=== PATIENT | male | born 1990 | race Caucasian/White ===

== ENCOUNTER 2017-12-27 15:30 | Emergency (ER) | payer MEDICAID, SELFPAY ==
[2017-12-27 15:31] VITALS: BP 157/94; PULSE 72; RESP 16; TEMP 37.1; O2SAT 96
--- NOTE | 2017-12-27 16:13 | DI.CT_ITS ---
SYMPTOM/DIAGNOSIS: LT EYE PAIN, SWELLING ORBIT CT: CT scan of the orbits was performed following the uneventful administration of intravenous contrast material. No priors for comparison. The orbits and retro- orbital soft tissues are unremarkable. No focal fluid collection is seen to suggest an abscess. The soft tissues are unremarkable. Note is made of a small mucus retention cyst or polyp in the left maxillary sinus. There is mild mucosal thickening seen in the ethmoid air cells and frontal sinuses. No fluid levels are present. The bones are intact and normally mineralized. IMPRESSION: 1. No acute findings related to the orbits. 2. Mild sinus disease.
[2017-12-27] MEDS: Ketorolac 30 MG/ML VIAL IVP (16:55)
[2017-12-27 17:10] LABS: Abs Immature Grans 0.02 k/cumm (0.0-0.09); Absolute Basophil Count 0.03 k/cumm (0.0-0.2); Absolute Eosinophil Count 0.09 k/cumm (0.0-0.7); Absolute Lymphocyte Count 1.42 k/cumm (1.2-3.4); Absolute Monocyte Count 0.64 k/cumm (0.11-0.7); Absolute Neutrophil Count 7.74 k/cumm (1.2-6.7); Basophils % 0.3; Eosinophils % 0.9; HCT 46.3 % (40.0-50.0); HGB 16.3 g/dL (13.5-17.5); Immature Grans % 0.2; Lymphocytes % 14.3; Mean Corp. HGB Concentration 35.2 g/dL (32.0-36.0); Mean Corpuscular Hemoglobin 29.5 pg (27.0-33.0); Mean Corpuscular Volume 83.7 fL (80-95); Mean Platelet Volume 10.8 fL (8.0-11.0); Monocytes % 6.4; Neutrophils % 77.9; Platelet Count 229 x1000/uL (130-400); RBC 5.53 m/cumm (4.50-6.00); RBC Distribution Width 12.5 % (11.8-14.1); White Blood Cell Count 9.94 k/cumm (4.4-10.8)
[2017-12-27 17:24] LABS: ALT 28 U/L (12-78); AST 17 U/L (15-37); Albumin 4.1 g/dL (3.4-5.0); Alkaline Phosphatase 75 U/L (46-116); Anion Gap 12.8 mmol/L (3-11); BUN 6 mg/dL (7-18); Bilirubin, Total 1.2 mg/dL (0.2-1.0); CO2 25.2 mmol/L (21.0-32.0); CREATININE 0.73 mg/dL (0.70-1.30); Calcium 9.5 mg/dL (8.5-10.1); Chloride 101 mmol/L (98-107); Glucose 87 mg/dL (70-100); Potassium 3.7 mmol/L (3.5-5.1); Sodium 139 mmol/L (136-145); Total Protein 8.1 g/dL (6.4-8.2)
[2017-12-27] MEDS: Omnipaque 350 MG/ML 100 ML BTL IJ (17:33)
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
[2017-12-27] MEDS: Clindamycin 150 MG CAP 450 MG PO (18:48)
[2017-12-27] MEDS: Clindamycin 150 MG CAP 900 MG PO (18:49)
[2017-12-27 18:55] VITALS: BP 143/97; PULSE 60; RESP 14; TEMP 37.1; O2SAT 97
== END 2017-12-27 18:55 | disposition home or self-care (01) ==
PROVIDERS: Emergency Provider Nurse Practitioner Family
DX: L03.213 Periorbital cellulitis (principal); R51 Headache
CPT/HCPCS: 36415; 80053; 96374; 99285; 70481; 85025; 99284; J1885; J3490

== ENCOUNTER 2017-12-31 08:34 | Outpatient (RCR) | payer SELFPAY ==
--- NOTE | 2017-12-31 08:34 | COCO.VHC ---
New/Renewal Application Status: New Application Submitted?: Yes Date Submitted:: 12/27/17 SR #:: [id number] [facility] REP Name:: Anai Notes:: application completed and pc to [facility] to expadite due to medical appointments and medication needs.
--- NOTE | 2017-12-31 08:36 | PDOC.VHC_ITS ---
New/Renewal Application Status: New Application Submitted?: Yes Date Submitted:: 12/27/17 SR #:: [id number] [facility] REP Name:: Anai Notes:: application completed and pc to [facility] to expadite due to medical appointments and medication needs.
== END 2018-01-28 23:59 | disposition home or self-care (01) ==
LOC: COCO 08:34

== ENCOUNTER 2018-02-02 06:51 | Emergency (ER) | payer MEDICAID, SELFPAY ==
--- NOTE | 2018-02-02 06:55 | ED.GENADUL_ITS ---
Discharge Plan Disposition Patient Disposition: HOME Condition: Improving Discharge Details Chief Complaint: Abd Prob Clinical Impression: Abdominal pain, Vomiting Primary Care Provider: None,None ED Provider: Esme Aviles Home Meds and New Rx's Prescriptions: Continue ibuprofen [IBU] 600 mg tablet 600 mg PO QID PRN (Reason: pain) Qty: 20 RF: 0 Discharge Instructions Instructions: Acute Nausea and Vomiting (ED), Abdominal Pain (ED) Additional Instructions: Drink plenty of fluids and get plenty of rest. Take the Zofran as needed and record for any further nausea or vomiting. Alternate Tylenol and Motrin as needed and directed for pain. Follow-up with primary care doctor in 1 week for reevaluation and needed. Return to the emergency department with any worsening or new concerning symptoms. Discharge Data Discharge Physician: Esme Aviles Medical Decision Making <Roger Whiting MD - Last Filed: 02/02/18 07:49> Patient presenting with abdominal pain, nausea, vomiting with tenderness in the right lower quadrant on exam. He does not have true guarding or rebound but is quite uncomfortable with palpation. We will make him n.p.o. place IV. Check laboratory studies and get CT scan to rule out appendicitis. Treat with morphine and Zofran. Patient will be turned over to oncoming physician, Dr. Aviles. She will need to follow-up on labs and CT scan. <Esme Aviles DO - Last Filed: 02/02/18 14:41> Please see Dr. Whiting's note for initial presentation, exam and plan. Patient is a 27-year-old male with no past medical or surgical history who presents abdominal pain for the past 2 days. Started in the epigastric region and then migrated to the right lower quadrant. Workup per Dr. Whiting concerning for acute appendicitis. Plan upon endorsement was follow-up on CT imaging results. Labs reviewed and unremarkable. 0845 --CT negative for appendicitis. Notes a possible rectal stricture. Patient denies any rectal pain or bleeding so this is nonspecific. Also notes possible equivocal cystitis. Patient has normal white blood cell count, negative urinalysis and no dysuria, discharge or hematuria so doubt a urinary tract infection at this time. Patient still with some right lower quadrant tenderness, nausea and intermittent epigastric pain with palpation. Normal exam. Will give a GI cocktail, Compazine and Toradol and reassess with p.o. challenge. 0935 --patient feels much better and was able to take p.o. and no further nausea or vomiting. Patient is requesting to go home. Vitals within normal limits. Will send home with 3 tabs of Zofran to take as needed. Patient was also instructed to alternate Tylenol or Motrin. Discussed that if he has an early appendicitis, it may not be seen on CT but as his pain is present for 2 days and he had a normal WBC and temperature, we should expect some abnormalities on workup today. Discussed with patient that if his symptoms persist or worsen, to return immediately to the emergency department for reevaluation. Patient does not have a primary care doctor. Will place patient on care management list to help arrange for follow-up in the next week. Medical Records Medical records reviewed: Yes I reviewed the patient's medical records. Lab Data Lab results reviewed: Yes I reviewed the patient's lab results. Laboratory Tests Range/Units 02/02/18 02/02/18 02/02/18 07:20 07:20 07:50 WBC (4.4-10.8) k/cumm 8.02 RBC (4.50-6.00) m/cumm 4.93 Hgb (13.5-17.5) g/dL 14.7 Hct (40.0-50.0) % 42.8 MCV (80-95) fL 86.8 MCH (27.0-33.0) pg 29.8 MCHC (32.0-36.0) g/dL 34.3 RDW (11.8-14.1) % 12.8 Plt Count (130-400) x1000/uL 205 MPV (8.0-11.0) fL 10.5 Immature Gran % 0.1 Neutrophils % 71.2 Lymphocytes % 15.7 Monocytes % 10.3 Eosinophils % 2.2 Basophils % 0.5 Absolute Neutrophils (1.2-6.7) k/cumm 5.70 Absolute Lymphocytes (1.2-3.4) k/cumm 1.26 Absolute Monocytes (0.11-0.7) k/cumm 0.83 H Absolute Eosinophils (0.0-0.7) k/cumm 0.18 Absolute Basophils (0.0-0.2) k/cumm 0.04 Sodium (136-145) mmol/L 137 Potassium (3.5-5.1) mmol/L 3.8 Chloride (98-107) mmol/L 102 Carbon Dioxide (21.0-32.0) mmol/L 26.4 Anion Gap (3-11) mmol/L 8.6 BUN (7-18) mg/dL 12 Creatinine (0.70-1.30) mg/dL 0.78 Estimated GFR/1.73 m2 (mL/min/1.73m2) >= 60.00 Glucose (70-100) mg/dL 102 H Calcium (8.5-10.1) mg/dL 9.1 Total Bilirubin (0.2-1.0) mg/dL 1.1 H AST (15-37) U/L 15 ALT (12-78) U/L 21 Alkaline Phosphatase (46-116) U/L 64 Total Protein (6.4-8.2) g/dL 7.5 Albumin (3.4-5.0) g/dL 4.0 Lipase (73-393) U/L 118 Urine Color (Yellow) Dark yellow Urine Clarity Sl cloudy Urine pH (5-8) 6.0 Ur Specific Colbert (1.005-1.025) >= 1.030 H Urine Protein (Negative) mg/dL Negative Urine Ketones (Negative) mg/dL Trace H Urine Blood (Negative) Negative Urine Nitrite (Negative) Negative Urine Bilirubin (Negative) Small H Urine Urobilinogen (Up TO 0.2) EU/dL 0.2 Ur Leukocyte Esterase (Negative) Negative Urine Glucose (Negative) mg/dL Negative HPI <Roger Whiting MD - Last Filed: 02/02/18 07:49> General Mode of arrival: ambulatory . Date/Time Provider Initiated Documentation: 02/02/18 06:54 . Limitations to Documentation: no limitations . Information obtained by: patient . HPI Narrative: Patient presents to ED with abdominal pain. Reports pain started 2 days ago and has been getting progressively worse. It is localized to the right lower quadrant. Does not radiate anywhere. He has loss of appetite, nausea, vomiting. He is constipated. He has decreased urine output with dark urine. He has sweats and chills but does not know whether he had a fever or not. Pain this morning is severe so he came in for evaluation. Related Data Home Medications Medication Instructions Recorded Confirmed ibuprofen [IBU] 600 mg PO QID PRN #20 tab 12/27/17 02/02/18 Previous Rx's Medication Instructions Recorded ibuprofen [IBU] 600 mg PO QID PRN #20 tab 12/27/17 Allergies Allergy/AdvReac Type Severity Reaction Status Date / Time levofloxacin [From Levaquin] Allergy Agitation Unverified 02/02/18 07:03 vanilla Allergy Severe Anaphylaxsi Uncoded 02/02/18 07:03 s General ALESSANDRA: 3 Review of Systems <Roger Whiting MD - Last Filed: 02/02/18 07:49> Review of Systems All systems reviewed & are unremarkable except as noted in HPI and below Constitutional Reports chills, Reports excessive sweating, Denies fever(s), Denies headache(s) , Denies malaise, Reports poor appetite and Reports weakness Eyes Denies change in vision, Denies eye discharge, Denies irritation and Denies eye pain ENT Denies headache(s) and Denies neck pain Cardiovascular Denies chest pain, Denies pedal edema, Denies edema, Denies leg edema, Denies lightheadedness, Denies palpitations and Denies dyspnea Respiratory Denies dyspnea Gastrointestinal Reports abdominal pain, Reports constipation, Denies diarrhea, Reports nausea and Reports vomiting Genitourinary Denies hematuria, Denies difficulty urinating, Denies dysuria, Denies urinary frequency and Denies urinary urgency Musculoskeletal Denies back pain, Denies myalgias, Denies arthralgias, Denies joint swelling, Denies neck pain and Denies numbness Integumentary/Breasts Denies erythema and Denies rash Neurologic Denies confusion, Denies headache(s), Denies numbness and Reports weakness Psychiatric Denies confusion Endocrine Reports excessive sweating and Denies palpitations Exam <Roger Whiting MD - Last Filed: 02/02/18 07:49> Const General: cooperative, comfortable and no acute distress Orientation: alert and oriented x3 HENMT Head: normocephalic and atraumatic Mouth: moist mucous membranes Eyes Conjunctivae: conjunctivae normal Pupils: PERRL EOM: EOM intact bilaterally Neck Neck: full ROM, no lymphadenopathy, trachea midline and supple Resp Effort & Inspection: normal respiratory effort Auscultation: clear to auscultation bilaterally Cardio Rate: regular rate Rhythm: regular rhythm Heart Sounds: S1 normal and S2 normal Pulses: normal peripheral pulses GI Inspection: normal to inspection and non-distended Palpation: soft, not firm, no guarding and tender in the RLQ and at McBurney's point Skin General skin exam: no erythema Rashes: no rashes Trauma: no lacerations or abrasions Other: warm and dry Neuro General: alert, oriented x3, no focal motor deficits and CN's II-XI intact bilaterally Cognition: normal cognition Speech: speech normal Sensory Exam: no sensory deficits noted Extrem General: normal to inspection, full ROM and no clubbing, cyanosis or edema Psych Appearance: grossly normal Mental Status: mental status grossly normal Affect: normal affect Attitude: cooperative Sign Out <Roger Whiting MD - Last Filed: 02/02/18 07:49> Sign Out Data: Sign Out Comment: Signed over to Dr. Aviles to follow up on labs and CT scan; re -eval the patient. Last updated by Roger Whiting MD at 02/02/18 07:50
[2018-02-02 06:59] VITALS: BP 142/91; PULSE 81; RESP 16; TEMP 37; O2SAT 97
--- NOTE | 2018-02-02 07:12 | DI.CT_ITS ---
SYMPTOMS/DIAGNOSIS: RIGHT LOWER QUADRANT PAIN/TENDERNESS CT OF THE ABDOMEN AND PELVIS: Comparison is made with noncontrast exam of April,. A focal area of stool is seen in the rectum. This is surrounded by areas of decompression. There is no visible mass or inflammation. Findings likely represent normal contraction. The appendix appears normal. There are a few small lymph nodes in the mesentery, not pathologically enlarged. There is no small bowel dilatation. The heart size is normal. The lung bases are clear. The liver, gallbladder, spleen, pancreas, adrenals and kidneys are unremarkable. The urinary bladder is nearly empty, but unremarkable. IMPRESSION: Mildly increased stool, otherwise negative.
[2018-02-02] MEDS: Lactated Ringers 1,000 ML 200 ML IV (07:25)
[2018-02-02] MEDS: Ondansetron 4 MG/2 ML VIAL IVP (07:25)
[2018-02-02 07:28] LABS: Abs Immature Grans 0.01 k/cumm (0.0-0.09); Absolute Basophil Count 0.04 k/cumm (0.0-0.2); Absolute Eosinophil Count 0.18 k/cumm (0.0-0.7); Absolute Lymphocyte Count 1.26 k/cumm (1.2-3.4); Absolute Monocyte Count 0.83 k/cumm (0.11-0.7); Basophils % 0.5; Eosinophils % 2.2; HCT 42.8 % (40.0-50.0); HGB 14.7 g/dL (13.5-17.5); Immature Grans % 0.1; Lymphocytes % 15.7; Mean Corp. HGB Concentration 34.3 g/dL (32.0-36.0); Mean Corpuscular Hemoglobin 29.8 pg (27.0-33.0); Mean Corpuscular Volume 86.8 fL (80-95); Mean Platelet Volume 10.5 fL (8.0-11.0); Monocytes % 10.3; Neutrophils % 71.2; Platelet Count 205 x1000/uL (130-400); RBC 4.93 m/cumm (4.50-6.00); RBC Distribution Width 12.8 % (11.8-14.1); White Blood Cell Count 8.02 k/cumm (4.4-10.8)
[2018-02-02] MEDS: MORPHine 10 MG/ML VIAL 4 MG IVP (07:30)
[2018-02-02 07:41] LABS: ALT 21 U/L (12-78); AST 15 U/L (15-37); Alkaline Phosphatase 64 U/L (46-116); Anion Gap 8.6 mmol/L (3-11); BUN 12 mg/dL (7-18); Bilirubin, Total 1.1 mg/dL (0.2-1.0); CO2 26.4 mmol/L (21.0-32.0); CREATININE 0.78 mg/dL (0.70-1.30); Calcium 9.1 mg/dL (8.5-10.1); Chloride 102 mmol/L (98-107); Glucose 102 mg/dL (70-100); Lipase 118 U/L (73-393); Potassium 3.8 mmol/L (3.5-5.1); Sodium 137 mmol/L (136-145); Total Protein 7.5 g/dL (6.4-8.2)
[2018-02-02 07:54] LABS: Bilirubin Small (Negative); Blood Negative (Negative); Clarity Sl Cloudy; Glucose Negative (Negative); Ketones Trace mg/dL (Negative); Leukocyte Esterase Negative (Negative); Nitrite Negative (Negative); Specific Gravity >= 1.030 (1.005-1.025); Urobilinogen 0.2 EU/dL (Up TO 0.2)
[2018-02-02] MEDS: Omnipaque 350 MG/ML 100 ML BTL IJ (08:15)
--- NOTE | 2018-02-02 08:41 | DI.VRAD_ITS ---
EXAM: CT Abdomen and Pelvis With Contrast EXAM DATE/TIME: 02/02/2018 8:12 AM CLINICAL HISTORY: 27 years old, male; Pain; Abdominal pain; Other: Rlq pain; Patient HX: Rlq pain/tenderness TECHNIQUE: Axial computed tomography images of the abdomen and pelvis with intravenous contrast. All CT scans at this facility use at least one of these dose optimization techniques: automated exposure control; mA and/or kV adjustment per patient size (includes targeted exams where dose is matched to clinical indication); or iterative reconstruction. Coronal and sagittal reformatted images were created and reviewed. CONTRAST: 100 ml of omni 350 administered intravenously. COMPARISON: CT RENAL COLIC WO CONTRAST 04/12/2012 4:53 PM FINDINGS: Lower thorax: No acute findings. ABDOMEN: Liver: Normal. No mass. Gallbladder and bile ducts: Normal. No calcified stones. No ductal dilation. Pancreas: Normal. No ductal dilation. Spleen: Normal. No splenomegaly. Adrenals: Normal. No mass. Kidneys and ureters: Normal. No hydronephrosis. Stomach and bowel: Short segmental dilatation of the rectum is a nonspecific finding but may reflect a rectal stricture.. Appendix: No evidence of appendicitis. PELVIS: Bladder: The urinary bladder is questionably thickwalled. This may reflect incomplete distention. However correlation with UA is recommended to exclude cystitis. Reproductive: Unremarkable as visualized. ABDOMEN and PELVIS: Intraperitoneal space: Normal. No free air. No significant fluid collection. Bones/joints: No acute fracture. No dislocation. Soft tissues: Unremarkable. Vasculature: Normal. No abdominal aortic aneurysm. Lymph nodes: Normal. No enlarged lymph nodes. IMPRESSION: 1. Short segmental dilatation of the rectum is a nonspecific finding but may reflect a rectal stricture.. 2. Equivocal cystitis. Dictated and Authenticated by: Tiago Casper MD. Ordering:FRANKO MCWILLIAMS MD
[2018-02-02] MEDS: Ketorolac 30 MG/ML VIAL IVP (09:10)
[2018-02-02] MEDS: Prochlorperazine 10 MG/2 ML VIAL IVP (09:15)
[2018-02-02] MEDS: Ondansetron O.D.T. 4 MG TABEF PO (09:30)
[2018-02-02 09:35] VITALS: BP 126/77; PULSE 63; RESP 16; TEMP 37; O2SAT 98
== END 2018-02-02 09:49 | disposition home or self-care (01) ==
PROVIDERS: Emergency Medicine; Emergency Provider Physician Assistant
DX: R11.2 Nausea with vomiting, unspecified (principal); R10.31 Right lower quadrant pain
CPT/HCPCS: 36415; 80053; 83690; 96361; 96374; 96375; 99285; 74177; 81003; 85025; 99284; J0780; J1885; J2270; J2405; J3490

== ENCOUNTER 2018-09-24 06:08 | Emergency (ER) | payer MEDICAID, SELFPAY ==
[2018-09-24 06:11] VITALS: BP 155/116; PULSE 92; RESP 18; TEMP 36.5; O2SAT 97
--- NOTE | 2018-09-24 06:22 | ED.GENADUL_ITS ---
Discharge Plan Disposition Patient Disposition: HOME Condition: Good Discharge Details Chief Complaint: Headache Clinical Impression: Headache, Malaise, Myalgia, Thrombocytopenia Primary Care Provider: None,None ED Provider: Roger Whiting Meds and New Rx's Prescriptions: New doxycycline hyclate [Morgidox] 100 mg capsule 100 mg PO BID Qty: 40 RF: 0 Discharge Instructions Instructions: Doxycycline (By mouth) Additional Instructions: Your illness may be tickborne in nature such as Lyme. It may also be viral. We have sent a tickborne panel. Because of your symptoms and the description of your rash from a week ago, we will start you on doxycycline to treat for possible tick borne disease. Remember this medication will make you very sensitive to the sun. Take the rest of the weekend off to rest. Drink plenty of fluids to stay hydrated. Use Motrin or Tylenol as needed for pain. We will refer to care management to help arrange primary care follow-up. Return to ED if you develop high fevers, worsening headache, mental status changes, persistent vomiting, other concerns. Stand Alone Forms: Work Release Referrals: Care Management [Provider Group] Medical Decision Making Patient here with multiple complaints of and has got himself quite anxious and concerned. States he has never felt like this before. He looks completely well to me. His exam is unremarkable other than an oropharynx which is a little erythematous and some anterior lymph nodes. Quite likely viral illness. However, he complains of syncope, vomiting with some red tinge to it, headache, generally feeling unwell. EKG is normal. Will place an IV and give fluid and Reglan and Toradol. Will check basic labs and reevaluate. Patient's heart rate and blood pressure has come down. He is feeling better after fluids and medications. Of significance on his laboratory studies is thrombocytopenia. Liver function is normal. But upon further questioning patient reports multiple tick bites. He does recall a circular erythematous lesion on the back of his leg maybe a week or so ago. Given his history tickborne panel is sent. We will treat presumptively with doxycycline and discussed photosensitivity with him. If tickborne panel comes back negative we will need to call the patient to discontinue the antibiotic. It is possible that this is just a viral illness but again given the thrombocytopenia, multiple tick bites, circular erythematous rash will presume tickborne until proven otherwise. Patient will be given a work note for the weekend. Rest, stay hydrated and start antibiotic. Tylenol or Motrin for discomfort. Patient without primary care physician so referred to care management to arrange for primary care follow-up. Return to ED for worsening headache, high fever, mental status changes, persistent vomiting, other concerns. Lab Data Lab results reviewed: Yes I reviewed the patient's lab results. ECG Data Attestation: I personally reviewed and interpreted this ECG (s) as follows: Prior ECG tracings: not available for review Interpretation: Normal sinus rhythm at 86. Normal axis and intervals. Normal EKG. HPI General Mode of arrival: ambulatory . Date/Time Provider Initiated Documentation: 09/24/18 06:22 . Limitations to Documentation: no limitations . Information obtained by: patient . HPI Narrative: Patient presents to ED with multiple complaints of. He states for the last 2 days he has been ill with nausea, vomiting, diarrhea, headache, lethargy, sore throat, body aches, general weakness. He reports vomiting at least 6 or 7 times last night. Sometimes notices red stuff in it but not sure whether it's blood or not. Complains of a lot of irritation and pain in his throat. 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 He states that because he was harnessed and he did not fall. He reports some abdominal discomfort. No chest pain or shortness of breath. States his boss made him come in to the ED today for evaluation because he looked so unwell. Related Data Home Medications Medication Instructions Recorded Confirmed doxycycline hyclate [Morgidox] 100 mg PO BID #40 cap 09/24/18 Previous Rx's Medication Instructions Recorded doxycycline hyclate [Morgidox] 100 mg PO BID #40 cap 09/24/18 Allergies Allergy/AdvReac Type Severity Reaction Status Date / Time levofloxacin [From Levaquin] Allergy Agitation Unverified 09/24/18 06:14 vanilla Allergy Severe Anaphylaxsi Uncoded 09/24/18 06:14 s General Stated Complaint: Headache ALESSANDRA: 3 Review of Systems Review of Systems 12/12 Review of Systems completed and is negative except as stated above in HPI (Systems reviewed: Const, Eyes, ENT, Resp, CV, GI, , MSK, Skin, Neuro) PFSH Social History Smoking/Tobacco Use Status: Current every day Tobacco Type: cigarettes Alcohol Intake: current Alcohol Intake frequency: holidays/special occasions only Drug use: Never Do you feel safe at home: Yes Do you feel safe in your relationship?: Yes Exam Narrative Exam Narrative: Vitals: Afebrile here. Blood pressure and heart rate up but patient is clearly anxious. Saturations are normal. Const: WDWN male in NAD. Anxious but looks completely well. Ambulating around the department without problem. HEENT: NC/AT. Normal facial exam. TMs clear. OP with MMM. Posterior OP with some erythema but no exudate. Minimal tonsilar swelling. Eyes: Normal conjunctiva and sclera. Neck: Supple with full ROM. Trachea midline. Some mild shotty anterior adenopathy. Lungs: Normal respiratory effort. Lungs are clear. Cor: RRR without murmur/gallop. Good radial pulses. GI: Soft. NT/ND. No guarding or rebound. Back: No CVAT. Neuro: A+O x 3. CN grossly in tact. Normal strength, sensation, mental status, speech and gait. Ext: No C/C/E. No deformity or tenderness. Skin: Warm and dry without rash. Course Vital Signs Temperature 97.7 F 09/24/18 06:11 Pulse 92 H 09/24/18 06:11 Respiratory Rate 18 09/24/18 06:11 Blood Pressure 155/116 H 09/24/18 06:11 Pulse Oximetry 97 09/24/18 06:11 Temperature 97.7 F 09/24/18 06:11 Temperature Source Skin 09/24/18 06:11 Pulse 92 H 09/24/18 06:11 Respiratory Rate 18 09/24/18 06:11 Respiratory Effort Non-Labored 09/24/18 06:13 Blood Pressure 155/116 H 09/24/18 06:11 Blood Pressure Position Sitting 09/24/18 06:11 Pulse Oximetry 97 09/24/18 06:11 Oxygen Delivery Method Room Air 09/24/18 06:11 Oxygen Flow Rate 0 09/24/18 06:11 Pain Level 8 09/24/18 06:18
[2018-09-24] MEDS: Ketorolac 15 MG/ML VIAL IVP (06:45)
[2018-09-24] MEDS: Normal Saline 1,000 ML 1000 ML IV (06:46)
[2018-09-24] MEDS: Metoclopramide 10 MG/2 ML VIAL IVP (06:46)
[2018-09-24 06:52] LABS: Abs Immature Grans 0.01 k/cumm (0.0-0.09); Absolute Basophil Count 0.02 k/cumm (0.0-0.2); Absolute Eosinophil Count 0.02 k/cumm (0.0-0.7); Absolute Lymphocyte Count 0.91 k/cumm (1.2-3.4); Absolute Monocyte Count 1.02 k/cumm (0.11-0.7); Absolute Neutrophil Count 5.36 k/cumm (1.2-6.7); Basophils % 0.3; Eosinophils % 0.3; HCT 42.4 % (40.0-50.0); HGB 14.9 g/dL (13.5-17.5); Immature Grans % 0.1; Lymphocytes % 12.4; Mean Corp. HGB Concentration 35.1 g/dL (32.0-36.0); Mean Corpuscular Hemoglobin 29.9 pg (27.0-33.0); Mean Platelet Volume 11.2 fL (8.0-11.0); Monocytes % 13.9; Platelet Count 118 x1000/uL (130-400); RBC 4.99 m/cumm (4.50-6.00); RBC Distribution Width 12.2 % (11.8-14.1); White Blood Cell Count 7.34 k/cumm (4.4-10.8)
[2018-09-24 06:54] LABS: Bilirubin Negative (Negative); Blood Trace-intact (Negative); Clarity Clear (Clear); Glucose Negative (Negative); Ketones Negative (Negative); Leukocyte Esterase Negative (Negative); Nitrite Negative (Negative); Specific Gravity 1.025 (1.005-1.025); Urobilinogen 0.2 EU/dL (Up TO 0.2); pH 5.5 (5-8)
[2018-09-24 07:04] LABS: RBC 0-2 (0-2); WBC 0-2 HPF (0-5)
[2018-09-24 07:05] LABS: Bacteria Rare HPF (Negative); C & S Indicated? No; Casts Negative LPF (Negative); Crystals Negative HPF (Negative); Epithelial Cells Rare HPF (Negative); Mucus Moderate (Negative)
[2018-09-24 07:07] LABS: Lipase 138 U/L (73-393); Magnesium 1.8 mg/dL (1.8-2.4)
[2018-09-24 07:18] LABS: ALT 22 U/L (12-78); AST 26 U/L (15-37); Albumin 3.8 g/dL (3.4-5.0); Alkaline Phosphatase 53 U/L (46-116); Anion Gap 11.6 mmol/L (3-11); BUN 12 mg/dL (7-18); Bilirubin, Total 0.4 mg/dL (0.2-1.0); CO2 27.4 mmol/L (21.0-32.0); CREATININE 0.91 mg/dL (0.70-1.30); Calcium 8.6 mg/dL (8.5-10.1); Chloride 98 mmol/L (98-107); Glucose 102 mg/dL (70-100); Potassium 3.6 mmol/L (3.5-5.1); Sodium 137 mmol/L (136-145); Total Protein 7.7 g/dL (6.4-8.2)
[2018-09-24] MEDS: Doxycycline Hyclate 100 MG CAP PO (07:35)
[2018-09-24 07:49] VITALS: BP 118/71; PULSE 72; RESP 16; TEMP 36.5; O2SAT 96
[2018-09-24 07:57] LABS: *AMPHETAMINES SCREEN URINE Negative (Negative); *BARBITURATES SCREEN URINE Negative (Negative); *BENZODIAZEPINES SCREEN URINE Negative (Negative); Cannabinoids THC POSITIVE (Negative); Cocaine Screen,Urine Negative (Negative); METHADONE URINE SCREEN Negative (Negative); OPIATES URINE SCREEN POSITIVE (Negative)
[2018-09-24 07:58] LABS: Tricyclic Antidepressants Negative (Negative)
[2018-09-26 12:07] LABS: Lyme Ab w Rflx to Lyme Confirm Negative
[2018-09-27 16:09] LABS: Anaplasma phagocytophilum Negative (Negative); B. miyamotoi PCR Negative (Negative); Babesia divergens/MO-1 Negative (Negative); Babesia duncani Negative (Negative); Babesia microti Negative (Negative); Ehrlichia chaffeensis Negative (Negative); Ehrlichia ewingii/canis Negative (Negative); Ehrlichia muris eauclairensis Negative (Negative)
== END 2018-09-24 07:46 | disposition home or self-care (01) ==
PROVIDERS: Emergency Provider Emergency Medicine
DX: R51 Headache (principal); R53.81 Other malaise; M79.10 Myalgia, unspecified site; D69.6 Thrombocytopenia, unspecified
CPT/HCPCS: 36415; 80053; 80307; 83690; 87798; 96361; 96374; 96375; 99284; 81003; 81015; 83735; 85025; 86618; J1885; J2765

== ENCOUNTER 2018-10-06 09:19 | Emergency (ER) | payer MEDICAID, SELFPAY ==
[2018-10-06 09:25] VITALS: BP 143/90; PULSE 66; RESP 16; TEMP 36.8
--- NOTE | 2018-10-06 09:45 | ED.GENADUL_ITS ---
Discharge Plan Disposition Patient Disposition: HOME Condition: Good Discharge Details Chief Complaint: GenMedical Clinical Impression: Near syncope, Dehydration symptoms Primary Care Provider: Estuardo Hernandez ED Provider: Sadiq Sawyer Home Meds and New Rx's Prescriptions: No Action doxycycline hyclate [Morgidox] 100 mg capsule 100 mg PO BID Qty: 40 RF: 0 Discharge Instructions Instructions: Dehydration (ED), Near Syncope (ED) Additional Instructions: Please make sure you continue to eat a well-balanced diet and stay well-hydrated especially while working and in the heat. Return immediately to the emergency department for any new or significant worsening of symptoms otherwise follow-up with your primary care provider for reassessment. Stand Alone Forms: Work Release Referrals: Estuardo Hernandez [Primary Care Provider] - (As needed for reassessment) Discharge Data Discharge Date/Time-TO BE ENTERED AT DEPARTURE: 10/06/18 10:07 Medical Decision Making Patient presenting to the emergency department for episode of collapse that occurred 6 days ago. Patient states that he was at work in the hot sun and had an episode of severe weakness where he fell. Patient denies any injury or trauma as he was standing when this occurred but does state he has been taking medication for a tooth infection that is made his stomach upset along with some doxycycline. Patient also reports poor food intake along with low hydration and that patient had been awake for an extended period of time causing him to also be sleep deprived. Patient was given 1 week off per his employer and states he is only here for a work note. Patient denies any cardiac history or complaints, denies any continued symptoms, and states he feels significantly better. Physical exam is unremarkable. Given clinical history I do feel this was a combination of nutritional deficiency, hydration, and lack of sleep that led to patient's episode and given that patient has improvement of symptoms and that it is 6 days later I do feel that patient can be safely discharged with a return to work note given that he is now asymptomatic and feeling better. Thorough discussion with patient of proper nutrition and hydration did occur and patient stated thorough understanding of these concepts. Return precautions were di scussed. After discussion of diagnosis and plan of care patient has no further needs, questions, or concerns and states clear understanding to return to the emergency department for any worsening symptoms. HPI General Mode of arrival: ambulatory . Date/Time Provider Initiated Documentation: 10/06/18 09:23 . Limitations to Documentation: no limitations . Information obtained by: patient and RN notes reviewed . History of Present Illness 28 year old M presents to the emergency department with the chief complaint of Near syncope, Quality is described as other (Denies pain or disco mfort or current symptoms), Patient started experiencing this day(s) (6) and it has been now resolved. Eating improves symptom(s), and Rest improves symptom(s), Patient notes no other symptoms.. Patient did receive the following treatments prior to arrival, none Related Data Home Medications Medication Instructions Recorded Confirmed doxycycline hyclate [Morgidox] 100 mg PO BID #40 cap 09/24/18 Previous Rx's Medication Instructions Recorded doxycycline hyclate [Morgidox] 100 mg PO BID #40 cap 09/24/18 Allergies Allergy/AdvReac Type Severity Reaction Status Date / Time levofloxacin [From Levaquin] Allergy Agitation Unverified 09/24/18 06:14 vanilla Allergy Severe Anaphylaxsi Uncoded 09/24/18 06:14 s General Stated Complaint: GenMedical ALESSANDRA: 5 Review of Systems Constitutional Denies body ache(s), Denies chills, Denies fever(s) and Denies headache(s) ENT Denies headache(s) Cardiovascular Denies chest pain, Denies diaphoresis, Denies syncope and Denies dyspnea Respiratory Denies dyspnea Gastrointestinal Denies abdominal pain, Denies nausea and Reports vomiting Integumentary/Breasts Denies rash Neurologic Denies syncope and Denies headache(s) FORMERLY [facility], 1928–1983 Social History Smoking/Tobacco Use Status: Current every day Tobacco Type: cigarettes Alcohol Intake: current Alcohol Intake frequency: holidays/special occasions only Drug use: Never Do you feel safe at home: Yes Do you feel safe in your relationship?: Yes Exam Const General: cooperative, no acute distress and not ill appearing Orientation: alert, awake and oriented x3 HENMT Mouth: moist mucous membranes Resp Effort & Inspection: normal respiratory effort, able to speak in complete sentences and no respiratory distress Auscultation: clear to auscultation bilaterally Cardio Rate: regular rate Rhythm: regular rhythm Heart Sounds: S1 normal, S2 normal, no click, no gallops, no murmurs and no rubs Neuro General: alert, awake, oriented x3, moves all extremities and no focal motor deficits Sensory Exam: no sensory deficits noted Course Vital Signs Temperature 36.8 C 10/06/18 09:25 Pulse 66 10/06/18 09:25 Respiratory Rate 16 10/06/18 09:25 Blood Pressure 143/90 H 10/06/18 09:25 Temperature 36.8 C 10/06/18 09:25 Temperature Source Temporal Artery Scan 10/06/18 09:25 Pulse 66 10/06/18 09:25 Respiratory Rate 16 10/06/18 09:25 Respiratory Effort Non-Labored 10/06/18 09:30 Respiratory Depth Normal 10/06/18 09:30 Respiratory Pattern Normal 10/06/18 09:30 Blood Pressure 143/90 H 10/06/18 09:25 Blood Pressure Position Supine 10/06/18 09:25 Oxygen Delivery Method Room Air 10/06/18 09:25 Oxygen Flow Rate 0 10/06/18 09:25
== END 2018-10-06 10:07 | disposition home or self-care (01) ==
PROVIDERS: Emergency Provider Nurse Practitioner Family; PCP Family Medicine
DX: R55 Syncope and collapse (principal); E86.0 Dehydration
CPT/HCPCS: 99281; 99282

== ENCOUNTER 2018-11-04 17:59 | Emergency (ER) | payer MEDICAID, SELFPAY ==
[2018-11-04] VITALS (24 sets, daily range): BP systolic 115–135; BP diastolic 76–100; PULSE 59–97; RESP 7–25; TEMP 36.6; O2SAT 93–98
--- NOTE | 2018-11-04 18:08 | DI.CT_ITS ---
SYMPTOM/DIAGNOSIS: SUBSTERNAL CHEST PAIN, DIAPHORETIC PE CHEST CTA: CT angiography was performed with multi slice acquisition and multi planar and 3D reconstruction. CT angiography of the chest was performed with a bolus infusion of 71 cc's of Omnipaque 350. Images obtained through the upper abdomen show unremarkable appearance of visualized portions of the liver, spleen, pancreas, adrenals and kidneys. The lungs are predominantly clear with a 5 mm. incidental right lower lobe intrapulmonary nodule, suggest follow up chest CT in 12 months to document the stability of this lesion. Tracheobronchial tree appears intact. No mediastinal or hilar adenopathy. No pulmonary embolic disease. Thoracic aorta and major branches are unremarkable. CONCLUSION: No evidence of pulmonary embolic disease. Incidental 5 mm. non calcified right lower lobe pulmonary nodule, follow up chest CT recommended in 12 months.
[2018-11-04 18:26] LABS: Abs Immature Grans 0.02 k/cumm (0.0-0.09); Absolute Basophil Count 0.02 k/cumm (0.0-0.2); Absolute Eosinophil Count 0.04 k/cumm (0.0-0.7); Absolute Lymphocyte Count 1.18 k/cumm (1.2-3.4); Absolute Monocyte Count 0.66 k/cumm (0.11-0.7); Absolute Neutrophil Count 8.38 k/cumm (1.2-6.7); Basophils % 0.2; Eosinophils % 0.4; HCT 45.5 % (40.0-50.0); HGB 15.7 g/dL (13.5-17.5); Immature Grans % 0.2; Lymphocytes % 11.5; Mean Corp. HGB Concentration 34.5 g/dL (32.0-36.0); Mean Corpuscular Hemoglobin 29.7 pg (27.0-33.0); Mean Platelet Volume 10.7 fL (8.0-11.0); Monocytes % 6.4; Neutrophils % 81.3; Platelet Count 232 x1000/uL (130-400); RBC 5.29 m/cumm (4.50-6.00); RBC Distribution Width 13.2 % (11.8-14.1)
[2018-11-04] MEDS: Ondansetron 4 MG/2 ML VIAL (18:27)
--- NOTE | 2018-11-04 18:39 | ED.GENADUL_ITS ---
Discharge Plan Disposition Patient Disposition: HOME Condition: Stable Discharge Details Chief Complaint: Chest Pain Clinical Impression: Chest pain, Shortness of breath, Bronchitis Primary Care Provider: Estuardo Hernandez ED Provider: Bunny Mccurdy Home Meds and New Rx's Prescriptions: New prednisone 20 mg tablet See Rx Instructions .ROUTE .COMPLEX Qty: 12 RF: 0 amoxicillin-pot clavulanate [Augmentin] 875-125 mg tablet 1 tab PO BID 7 Days Qty: 14 RF: 0 Discharge Instructions Instructions: Chest Pain (ED), Acute Bronchitis (ED), Dyspnea (ED) Additional Instructions: Use the albuterol inhaler as needed and directed. Take the steroids and antibiotics until finished. Follow-up with your primary care doctor next week for reevaluation. Return immediately to the emergency department if you develop any worsening or new concerning symptoms. Discharge Data Discharge Date/Time-TO BE ENTERED AT DEPARTURE: 11/04/18 22:40 Discharge Physician: Esme Aviles Medical Decision Making <Esme Aviles DO - Last Filed: 11/07/18 15:41> 1805 -- 28-year-old male with history of hypertension and a tobacco smoker who presents with substernal left-sided chest pain and shortness of breath since last night. Also admits to cough with green sputum. Blood pressure mildly hypertensive, normal respirations, O2 sat. Afebrile. Patient has coarse breath sounds left side of chest. He is diaphoretic. Due to level of pain, dose of morphine and Zofran given shortly after arrival. He has been speaking in full sentences and does not appear in any acute respiratory distress. EKG notes a rate of 75, sinus with T wave inversion in lead III and V2. This appears changed from previous EKG August 2018. There is no acute ST elevation or depression. Differential diagnosis includes PE, ACS, electrolyte abnormality, dissection, pneumonia, pericarditis, myocarditis, bronchitis. Will place an IV, bolus IV fluids, nebs, steroids and obtain CT chest. Labs and imaging reviewed and unremarkable. Normal white blood cell count. Negative troponin. CT chest negative. 1944 --patient admits to improvement in shortness of breath but still complaining of chest pain. Will give a dose of Toradol. He has a heart score of 2 but due to his level of continued pain he was offered admission overnight for serial troponins and observation but he is declining. He is agreeable to stay for a second troponin at 10 PM. He was advised of the risks of and disability due to a serious cardiac pathology and demonstrates capacity to make decisions. 2049 --Case endorsed to Dr. Mccurdy to follow-up on repeat troponin and EKG. Medical Records Medical records reviewed: Yes I reviewed the patient's medical records. Imaging Data Radiologic Study: Radiologist's impression: CT Angiography Chest With Contrast EXAM DATE/TIME: 11/04/2018 6:11 PM CLINICAL HISTORY: 28 years old, male; Sternal or substernal pain; Patient HX: Substernal chest pain, diaphoretic; Additional info: R/O dissection/pe TECHNIQUE: Imaging protocol: Computed tomographic angiography of the chest with intravenous contrast. 3D rendering: MIP reconstructed images were created and reviewed. COMPARISON: No relevant prior studies available. FINDINGS: No evidence of pulmonary embolism. Normal thoracic aorta without aneurysm or dissection. No airspace consolidation, pleural effusion or pneumothorax. There is a 3 mm pulmonary nodule in in the right lower lobe. The visualized abdominal structures are unremarkable. No fracture. IMPRESSION: No evidence of pulmonary embolism. ECG Data Attestation: I personally reviewed and interpreted this ECG (s) as follows: Interpretation: Rate of 75, sinus, T wave inversion in V2, lead III. No acute ST elevation or depression. NM 124. QTc 409. QRS 104. <Bunny Mccurdy MD - Last Filed: 11/04/18 22:37> Pt's second troponin and ecg unremarkable and denies any pain on my exam, hd stable. Heart score of 2 so feel he can be d/c'd and f/u with pcp as per Dr. Aviles's plan and return precautions given. I also advised patient about lung nodule seen on CT that he needs to discuss with his pcp for further monitoring. Lab Data Lab results reviewed: Yes I reviewed the patient's lab results. ECG Data Attestation: I personally reviewed and interpreted this ECG (s) as follows: Prior ECG tracings: available for review Interpretation: sinus rhythm, rate of 60, pr 128, no acute st t wave ischemic findings when compared to first ekg HPI <Esme Aviles DO - Last Filed: 11/07/18 15:41> General Mode of arrival: ambulatory . Date/Time Provider Initiated Documentation: 11/04/18 18:02 . Limitations to Documentation: no limitations . Information obtained by: patient . HPI Narrative: Patient is a 28-year-old male presents with intermittent sharp substernal and left-sided chest pain with radiation down to his left arm since last night. He also admits to intermittent shortness of breath, and sweating. He states the pain is worse when laying flat and better when sitting up. He also admits to nasal congestion and cough with occasional white-green sputum. He denies any known fever, recent travel, recent surgery, leg pain or swelling. He denies any known injury. Related Data Home Medications Medication Instructions Recorded Confirmed amoxicillin-pot clavulanate 1 tab PO BID 7 Days #14 tab 11/04/18 [Augmentin] prednisone See Rx Instructions .ROUTE 11/04/18 .COMPLEX #12 tab Previous Rx's Medication Instructions Recorded amoxicillin-pot clavulanate 1 tab PO BID 7 Days #14 tab 11/04/18 [Augmentin] prednisone See Rx Instructions .ROUTE 11/04/18 .COMPLEX #12 tab Allergies Allergy/AdvReac Type Severity Reaction Status Date / Time levofloxacin [From Levaquin] Allergy Agitation Unverified 09/24/18 06:14 vanilla Allergy Severe Anaphylaxsi Uncoded 09/24/18 06:14 s General Stated Complaint: Chest Pain ALESSANDRA: 2 Review of Systems <Esme Aviles DO - Last Filed: 11/07/18 15:41> Review of Systems All systems reviewed & are unremarkable except as noted in HPI and below Constitutional Reports as per HPI, Denies chills and Denies fever(s) Eyes Denies blurry vision ENT Denies dizziness, Reports nasal congestion, Denies sore throat and Denies throat swelling Cardiovascular Reports chest pain and Reports dyspnea Respiratory Reports cough and Reports dyspnea Gastrointestinal Denies abdominal pain, Denies diarrhea and Denies vomiting Genitourinary Denies hematuria and Denies dysuria Musculoskeletal Denies back pain and Denies numbness Integumentary/Breasts Denies lesions and Denies rash Neurologic Denies dizziness, Denies focal weakness and Denies numbness Allergic/Immunologic Denies throat swelling PFS <Esme Aviles DO - Last Filed: 11/07/18 15:41> Medical History HTN (hypertension) (Chronic) Social History Smoking/Tobacco Use Status: Current every day Tobacco Type: cigarettes Alcohol Intake: current Alcohol Intake frequency: holidays/special occasions only Drug use: Occasionally Substance use type: marijuana Do you feel safe at home: Yes Do you feel safe in your relationship?: Yes Exam <Esme Aviles DO - Last Filed: 11/07/18 15:41> Const General: cooperative, healthy appearing and no acute distress HENMT Head: normal to inspection Face and sinus: normal facial exam Eyes General: appearance normal, both eyes and all related structures EOM: EOM intact bilaterally Neck Neck: normal visual inspection and No submandibular swelling Lymphatic: no lymphadenopathy noted Chest Chest: normal inspection of the chest and no tenderness Resp Effort & Inspection: normal respiratory effort and able to speak in complete sentences Auscultation: clear to auscultation bilaterally Cardio Rate: regular rate Rhythm: regular rhythm GI Inspection: normal to inspection Palpation: soft, not firm, not rigid and nontender Auscultation: normal bowel sounds Skin General skin exam: no rashes or lesions noted Neuro General: alert, awake and oriented x3 Cognition: normal cognition Speech: speech normal Motor: muscle tone normal throughout Sensory Exam: no sensory deficits noted Extrem General: normal to inspection, full ROM, normal capillary refill, no calf tend erness bilaterally and no edema Psych Appearance: grossly normal Mental Status: mental status grossly normal Speech and Movement: speech and movement normal Affect: normal affect Course <Esme Aviles DO - Last Filed: 11/07/18 15:41> Vital Signs Temperature 97.9 F 11/04/18 18:03 Pulse 72 11/04/18 18:03 Respiratory Rate 16 11/04/18 18:03 Blood Pressure 134/91 H 11/04/18 18:03 Pulse Oximetry 98 11/04/18 18:03 Temperature 97.9 F 11/04/18 18:03 Temperature Source Skin 11/04/18 18:03 Pulse 72 11/04/18 18:03 Respiratory Rate 18 11/04/18 18:09 Respiratory Effort Non-Labored 11/04/18 18:09 Respiratory Depth Normal 11/04/18 18:09 Respiratory Pattern Normal 11/04/18 18:09 Blood Pressure 134/91 H 11/04/18 18:03 Pulse Oximetry 98 11/04/18 18:03 Oxygen Delivery Method Room Air 11/04/18 18:03 Oxygen Flow Rate 0 11/04/18 18:03 Pain Level 7 11/04/18 18:09 Lab/Test Results Lab/Test Results: Laboratory Tests Range/Units 11/04/18 18:06 WBC (4.4-10.8) k/cumm 10.30 RBC (4.50-6.00) m/cumm 5.29 Hgb (13.5-17.5) g/dL 15.7 Hct (40.0-50.0) % 45.5 MCV (80-95) fL 86.0 MCH (27.0-33.0) pg 29.7 MCHC (32.0-36.0) g/dL 34.5 RDW (11.8-14.1) % 13.2 Plt Count (130-400) x1000/uL 232 MPV (8.0-11.0) fL 10.7 Immature Gran % 0.2 Neutrophils % 81.3 Lymphocytes % 11.5 Monocytes % 6.4 Eosinophils % 0.4 Basophils % 0.2 Absolute Neutrophils (1.2-6.7) k/cumm 8.38 H Absolute Lymphocytes (1.2-3.4) k/cumm 1.18 L Absolute Monocytes (0.11-0.7) k/cumm 0.66 Absolute Eosinophils (0.0-0.7) k/cumm 0.04 Absolute Basophils (0.0-0.2) k/cumm 0.02 Sign Out <Esme Aviles DO - Last Filed: 11/07/18 15:41> Sign Out Data: Sign Out Comment: Follow-up on repeat troponin and EKG and final disposition. Patient encouraged to stay for admission due to concerning history, but is declining admission. Heart score of 2. Last updated by Esme Aviles DO at 11/04/18 21:19
[2018-11-04 18:41] LABS: ALT 29 U/L (16-63); AST 18 U/L (15-37); Albumin 4.2 g/dL (3.4-5.0); Alkaline Phosphatase 66 U/L (46-116); Anion Gap 11.6 mmol/L (3-11); BUN 9 mg/dL (7-18); CO2 26.4 mmol/L (21.0-32.0); Chloride 102 mmol/L (98-107); Glucose 143 mg/dL (70-100); Magnesium 1.8 mg/dL (1.8-2.4); Potassium 3.8 mmol/L (3.5-5.1); Sodium 140 mmol/L (136-145)
[2018-11-04] MEDS: Normal Saline 1,000 ML 1000 ML IV (18:55)
[2018-11-04] MEDS: methylPREDNISolone SUCC 125 MG VIAL IVP (19:00)
[2018-11-04] MEDS: Albuterol/Ipratropium 3 ML UPD VIAL UPD ×2 (19:02→19:03)
[2018-11-04] MEDS: Albuterol 2.5 MG/3 ML INH SOLN VIAL UPD (19:03)
--- NOTE | 2018-11-04 19:05 | DI.VRAD_ITS ---
EXAM: CT Angiography Chest With Contrast EXAM DATE/TIME: 11/04/2018 6:11 PM CLINICAL HISTORY: 28 years old, male; Sternal or substernal pain; Patient HX: Substernal chest pain, diaphoretic; Additional info: R/O dissection/pe TECHNIQUE: Imaging protocol: Computed tomographic angiography of the chest with intravenous contrast. 3D rendering: MIP reconstructed images were created and reviewed. COMPARISON: No relevant prior studies available. FINDINGS: No evidence of pulmonary embolism. Normal thoracic aorta without aneurysm or dissection. No airspace consolidation, pleural effusion or pneumothorax. There is a 3 mm pulmonary nodule in in the right lower lobe. The visualized abdominal structures are unremarkable. No fracture. IMPRESSION: No evidence of pulmonary embolism. Dictated and Authenticated by: Marcell Maynard MD. Ordering:BAY Victoria MD
[2018-11-04 19:15] LABS: Troponin I < 0.05 ng/mL (0.00-0.06)
[2018-11-04] MEDS: Ketorolac 30 MG/ML VIAL IVP (20:37)
[2018-11-04 22:23] LABS: Troponin I < 0.05 ng/mL (0.00-0.06)
[2018-11-04] MEDS: Albuterol HFA 8 GM 60 PUFF INH IH (22:38)
== END 2018-11-04 22:40 | disposition home or self-care (01) ==
PROVIDERS: Physician Assistant; Emergency Provider Emergency Medicine; PCP Family Medicine
DX: R07.9 Chest pain, unspecified (principal); R06.02 Shortness of breath; J20.9 Acute bronchitis, unspecified; I10 Essential (primary) hypertension; F17.210 Nicotine dependence, cigarettes, uncomplicated; Z53.29 Procedure and treatment not carried out because of patient's decision for other reasons
CPT/HCPCS: 71275; 80053; 93005; 96361; 96374; 96375; 99285; 83735; 84484; 85025; 93010; E0114; J1885; J2405; J2930; J7613; J7620; L1830

== ENCOUNTER 2019-03-22 15:15 | Emergency (ER) | payer MEDICAID, SELFPAY ==
[2019-03-22 15:18] VITALS: BP 159/101; PULSE 67; RESP 20; TEMP 36.5; O2SAT 98
--- NOTE | 2019-03-22 16:06 | ED.GENADUL_ITS ---
Discharge Plan Disposition Patient Disposition: HOME Condition: Stable Discharge Details Chief Complaint: DentalOral Clinical Impression: Pain, dental Primary Care Provider: Estuardo Hernandez ED Provider: Bunny Mccurdy Home Meds and New Rx's Prescriptions: New amoxicillin 500 mg tablet 500 mg PO BID Qty: 20 RF: 0 Continued buprenorphine-naloxone [Suboxone] 8-2 mg Film 2 film BUCCAL DAILY RF: 0 Discharge Instructions Instructions: Toothache (ED) Additional Instructions: follow up with a dentist especially if symptoms are not improving within 2 weeks if you have high fevers, difficulty breathing or swallowing liquids return to the emergency department Medical Decision Making 28 yo male with history of prior caries and dental infections comes in today with complaints of 1 days of right mid lower molar pain. Has one remaining molar that has severe decay, no swelling or abscess on exam, does have tenderness with percussion of this tooth. No findings on exam to suggest connie's, rpa, police captain, epiglotitis. Will tx with abx for likely dental infection and advised f/u with dentist and return precautions given Differential Diagnosis Differential Diagnosis: pulpitis, abscess, caries HPI General Mode of arrival: ambulatory . Date/Time Provider Initiated Documentation: 03/22/19 15:54 . Limitations to Documentation: no limitations . Information obtained by: patient . History of Present Illness 28 year old M presents to the emergency department with the chief complaint of dental pain, described as moderate, and it has been constant. No relieving factors improve symptom(s), No exacerbating factors reported . Related Data Home Medications Medication Instructions Recorded Confirmed amoxicillin 500 mg PO BID #20 tab 03/22/19 buprenorphine-naloxone [Suboxone] 2 film BUCCAL DAILY 03/22/19 03/22/19 Previous Rx's Medication Instructions Recorded amoxicillin 500 mg PO BID #20 tab 03/22/19 Allergies Allergy/AdvReac Type Severity Reaction Status Date / Time levofloxacin [From Levaquin] Allergy Agitation Unverified 09/24/18 06:14 vanilla Allergy Severe Anaphylaxsi Uncoded 09/24/18 06:14 s General Stated Complaint: DentalOral ALESSANDRA: 4 Review of Systems All systems reviewed & are unremarkable except as noted in HPI and below Constitutional Constitutional: Denies chills, Denies fever(s) and Denies weakness Cardiovascular Cardiovascular: Denies chest pain and Denies dyspnea Respiratory Respiratory: Denies cough and Denies dyspnea Gastrointestinal Gastrointestinal: Denies abdominal pain, Denies nausea and Denies vomiting Neurologic Neurologic: Denies weakness [facility] Medical History HTN (hypertension) (Chronic) Social History Smoking/Tobacco Use Status: Current every day Tobacco Type: cigarettes Alcohol Intake: current Alcohol Intake frequency: holidays/special occasions only Drug use: Occasionally Substance use type: marijuana Do you feel safe at home: Yes Do you feel safe in your relationship?: Yes Exam Const General: no acute distress Orientation: alert HENMT Head: normal to inspection Ears: external ears normal General nose exam: external nose normal Mouth: moist mucous membranes Eyes General: appearance normal, both eyes and all related structures Neck Neck: normal visual inspection Resp Effort & Inspection: normal respiratory effort and able to speak in complete sentences Cardio Rate: regular rate Skin General skin exam: no rashes or lesions noted Neuro General: alert and oriented x3 Extrem General: normal to inspection Psych Mental Status: mental status grossly normal Course Vital Signs Vital signs: Vital Signs Temperature 36.5 C 03/22/19 15:18 Pulse 67 03/22/19 15:18 Respiratory Rate 03/22/19 15:18 Blood Pressure 159/101 H 03/22/19 15:18 Pulse Oximetry 98 03/22/19 15:18 Temperature 36.5 C 03/22/19 15:18 Temperature Source Skin 03/22/19 15:18 Pulse 67 03/22/19 15:18 Respiratory Rate 20 03/22/19 15:18 Respiratory Effort Non-Labored 03/22/19 15:23 Blood Pressure 159/101 H 03/22/19 15:18 Blood Pressure Position Sitting 03/22/19 15:18 Pulse Oximetry 98 03/22/19 15:18 Oxygen Delivery Method Room Air 03/22/19 15:18 Oxygen Flow Rate 0 03/22/19 15:18 Pain Level 9 03/22/19 15:18
== END 2019-03-22 16:02 | disposition home or self-care (01) ==
PROVIDERS: Emergency Provider Emergency Medicine; PCP Family Medicine
DX: K08.89 Other specified disorders of teeth and supporting structures (principal); K02.9 Dental caries, unspecified; I10 Essential (primary) hypertension
CPT/HCPCS: 99283

== ENCOUNTER 2019-03-26 17:00 | Emergency (ER) | payer MEDICAID, SELFPAY ==
[2019-03-26 17:25] VITALS: BP 136/89; PULSE 90; RESP 16; TEMP 36.8
[2019-03-26] MEDS: Normal Saline 1,000 ML 1000 ML IV (17:57)
[2019-03-26] MEDS: Normal Saline Flush 10 ML SYR IVP (17:57)
[2019-03-26 18:01] LABS: Lactate 0.8 mmol/L (0.6-1.4)
[2019-03-26 18:04] LABS: Abs Immature Grans 0.02 k/cumm (0.0-0.09); Absolute Basophil Count 0.03 k/cumm (0.0-0.2); Absolute Eosinophil Count 0.18 k/cumm (0.0-0.7); Absolute Monocyte Count 0.83 k/cumm (0.11-0.7); Absolute Neutrophil Count 12.28 k/cumm (1.2-6.7); Basophils % 0.2; Eosinophils % 1.2; HCT 42.2 % (40.0-50.0); HGB 14.7 g/dL (13.5-17.5); Immature Grans % 0.1 %; Lymphocytes % 8.9; Mean Corp. HGB Concentration 34.8 g/dL (32.0-36.0); Mean Corpuscular Hemoglobin 29.9 pg (27.0-33.0); Mean Corpuscular Volume 85.8 fL (80-95); Mean Platelet Volume 10.3 fL (8.0-11.0); Monocytes % 5.7; Neutrophils % 83.9; Platelet Count 234 x1000/uL (130-400); RBC 4.92 m/cumm (4.50-6.00); RBC Distribution Width 12.8 % (11.8-14.1); White Blood Cell Count 14.64 k/cumm (4.4-10.8)
--- NOTE | 2019-03-26 18:05 | ED.GENADUL_ITS ---
Discharge Plan Disposition Patient Disposition: HOME Discharge Details Chief Complaint: Abd Prob Clinical Impression: Constipation Primary Care Provider: Estuardo Hernandez ED Provider: Gerhard Patrick Home Meds and New Rx's Prescriptions: New bisacodyl [Dulcolax (bisacodyl)] 10 mg suppository 10 mg MS DAILY 1 Days Qty: 5 RF: 0 No Action buprenorphine-naloxone [Suboxone] 8-2 mg Film 2 film BUCCAL DAILY RF: 0 amoxicillin 500 mg tablet 500 mg PO BID Qty: 20 RF: 0 ondansetron HCl [Zofran] 4 mg Tablet 4 mg PO PRNRF: 0 sertraline 25 mg Tablet 25 mg PO DAILY RF: 0 lisinopril 5 mg Tablet 5 mg PO DAILY RF: 0 omeprazole 20 mg Tablet,Delayed Release (Dr/Ec) 20 mg PO DAILY RF: 0 Discharge Instructions Instructions: Constipation (ED) Additional Instructions: Your clinical work-up today significant for severe constipation. It is very important that you stay adequately hydrated with water. Try magnesium citrate [id number] along with Dulcolax suppositories [id number]. Return to the emergency department should you develop fevers, vomiting or severe abdominal pain. Follow-up with your Suboxone provider regarding Suboxone induced constipation Referrals: Estuardo Hernandez [Primary Care Provider] - 5 days Medical Decision Making This is a nontoxic-appearing 28-year-old male who presents to the emergency department with generalized abdominal discomfort and nausea/constipation. Vital signs stable. Abdomen soft with some mild tenderness in the lower abdomen. Rectal exam deferred. No fevers. Labs demonstrate slightly elevated WBC. Normal lactate. CT abdomen pelvis demonstrates increased stool burden. He is on Suboxone therefore at risk for constipation. He does state that he suffers chronically for constipation, however is never had symptoms this long. No significant improvement status post 2 soapsuds enemas. Plan is to discharge home with Dulcolax and rectal suppositories. Discussed return precautions. He will follow-up with his Suboxone provider regarding possible prescribed OIC meds. HPI General Date/Time Provider Initiated Documentation: 03/26/19 17:11 . HPI Narrative: Patient is a 28-year-old male on Suboxone with no significant past medical history presents to the emergency department with constipation and and lower abdominal discomfort. He states that has not had a BM in the last 3 to 4 days. He normally has on and off constipation, however has never had symptoms last this long. He feels bloated but denies any vomiting. No fevers. No urinary symptoms. No back pain. No testicular or penile pain Related Data Home Medications Medication Instructions Recorded Confirmed amoxicillin 500 mg PO BID #20 tab 03/22/19 03/26/19 buprenorphine-naloxone [Suboxone] 2 film BUCCAL DAILY 03/22/19 03/26/19 bisacodyl [Dulcolax (bisacodyl)] 10 mg MS DAILY 1 Days #5 each 03/26/19 lisinopril 5 mg PO DAILY 03/26/19 03/26/19 omeprazole 20 mg PO DAILY 03/26/19 03/26/19 ondansetron HCl [Zofran] 4 mg PO PRN 03/26/19 sertraline 25 mg PO DAILY 03/26/19 03/26/19 Previous Rx's Medication Instructions Recorded amoxicillin 500 mg PO BID #20 tab 03/22/19 bisacodyl [Dulcolax (bisacodyl)] 10 mg MS DAILY 1 Days #5 each 03/26/19 Allergies Allergy/AdvReac Type Severity Reaction Status Date / Time levofloxacin [From Levaquin] Allergy Agitation Unverified 03/26/19 17:31 vanilla Allergy Severe Anaphylaxsi Uncoded 03/26/19 17:31 s bee Allergy Uncoded 03/26/19 17:32 General Stated Complaint: Abd Prob ALESSANDRA: 3 Review of Systems Constitutional Constitutional: Denies chills, Denies fatigue, Denies fever(s) and Reports poor appetite Cardiovascular Cardiovascular: Denies chest pain and Denies dyspnea Respiratory Respiratory: Denies cough and Denies dyspnea Gastrointestinal Gastrointestinal: Reports nausea and Denies vomiting Endocrine Endocrine: Denies fatigue [facility] Medical History HTN (hypertension) (Chronic) Social History Smoking/Tobacco Use Status: Current every day Tobacco Type: cigarettes Alcohol Intake: current Alcohol Intake frequency: holidays/special occasions only Drug use: Occasionally Substance use type: marijuana Do you feel safe at home: Yes Do you feel safe in your relationship?: Yes Course Vital Signs Vital signs: Vital Signs Temperature 36.8 C 03/26/19 17:25 Pulse 90 03/26/19 17:25 Respiratory Rate 16 03/26/19 17:25 Blood Pressure 136/89 03/26/19 17:25 Temperature 36.8 C 03/26/19 17:25 Temperature Source Skin 03/26/19 17:25 Pulse 90 03/26/19 17:25 Respiratory Rate 16 03/26/19 17:25 Respiratory Effort Non-Labored 03/26/19 17:25 Blood Pressure 136/89 03/26/19 17:25 Blood Pressure Position Sitting 03/26/19 17:25 Oxygen Delivery Method Room Air 03/26/19 17:25 Oxygen Flow Rate 0 03/26/19 17:25 Pain Level 6 03/26/19 17:25 Lab/Test Results Lab/Test Results: Laboratory Tests Range/Units 03/26/19 03/26/19 17:54 17:54 WBC (4.4-10.8) k/cumm 14.64 H RBC (4.50-6.00) m/cumm 4.92 Hgb (13.5-17.5) g/dL 14.7 Hct (40.0-50.0) % 42.2 MCV (80-95) fL 85.8 MCH (27.0-33.0) pg 29.9 MCHC (32.0-36.0) g/dL 34.8 RDW (11.8-14.1) % 12.8 Plt Count (130-400) x1000/uL 234 MPV (8.0-11.0) fL 10.3 Immature Gran % % 0.1 Neutrophils % 83.9 Lymphocytes % 8.9 Monocytes % 5.7 Eosinophils % 1.2 Basophils % 0.2 Absolute Neutrophils (1.2-6.7) k/cumm 12.28 H Absolute Lymphocytes (1.2-3.4) k/cumm 1.30 Absolute Monocytes (0.11-0.7) k/cumm 0.83 H Absolute Eosinophils (0.0-0.7) k/cumm 0.18 Absolute Basophils (0.0-0.2) k/cumm 0.03 Lactate (0.6-1.4) mmol/L 0.8
[2019-03-26 18:21] LABS: ALT 24 U/L (16-63); AST 19 U/L (15-37); Albumin 4.2 g/dL (3.4-5.0); Alkaline Phosphatase 50 U/L (46-116); BUN 9 mg/dL (7-18); Bilirubin, Total 1.1 mg/dL (0.2-1.0); CREATININE 0.72 mg/dL (0.70-1.30); Calcium 8.7 mg/dL (8.5-10.1); Chloride 102 mmol/L (98-107); Glucose 92 mg/dL (74-106); Magnesium 1.4 mg/dL (1.8-2.4); Potassium 4.3 mmol/L (3.5-5.1); Sodium 138 mmol/L (136-145); Total Protein 7.4 g/dL (6.4-8.2)
--- NOTE | 2019-03-26 18:33 | DI.CT_ITS ---
EXAM: CT ABDOMEN PELVIS W CLINICAL HISTORY: lower abd pain, NV, constipation, elevated WBC TECHNIQUE: Post IV and without oral contrast. COMPARISON: CT CHEST PE CTA from 11/04/2018 FINDINGS: The lung bases are clear. The heart size is normal. The liver, gallbladder, spleen, pancreas, kidn eys and adrenals as well as urinary bladder are unremarkable. There is increased stool throughout th e colon, greatest within the rectum and distal sigmoid. There is a question of minimal perirectal wa ll thickening. There is no abnormal small bowel distention. There is no evidence of appendicitis. The aorta is normal in diameter. IMPRESSION: Large quantity of stool in the rectum and distal sigmoid.
[2019-03-26] MEDS: Omnipaque 350 MG/ML 100 ML BTL IJ (18:53)
--- NOTE | 2019-03-26 18:57 | NUR.NOTE ---
Assumed care of pt. Pt had just returned from CT. Upon return, pt reported to MD PSYCHI[facility] he was bleeding from IV. IV cap noted to be missing. New cap placed, IV flushed, +BR. gown changed. Pt reports 09/07 abd pain s/p no BM x 4 days. +N/V. Reports pain as pressure. NS infusing. Pt standing at bedside, states more comfortable. aware of need for UA. awaiting CT results.
--- NOTE | 2019-03-26 19:24 | DI.VRAD_ITS ---
PROCEDURE INFORMATION: Exam: CT Abdomen And Pelvis With Contrast Exam date and time: 03/26/2019 6:43 PM Age: 28 years old Clinical indication: Pain and abnormal findings; Abnormal lab test; Elevated wbc; Constipation and nausea and vomiting; Other: Lower adb pain TECHNIQUE: Imaging protocol: Computed tomography of the abdomen and pelvis with intravenous contrast. COMPARISON: CT ABDOMEN PELVIS W 02/02/2018 8:00 AM FINDINGS: Lungs: Lung bases are clear. Liver: Unremarkable. No mass. Gallbladder and bile ducts: Unremarkable. No calcified stones. No ductal dilation. Pancreas: Unremarkable. No ductal dilation. Spleen: Unremarkable. No splenomegaly. Adrenals: Unremarkable. No mass. Kidneys and ureters: Unremarkable. No hydronephrosis. Ureters are normal in course and caliber. Stomach and bowel: No focal colonic mural thickening or significant pericolonic inflammatory stranding. There is focal mural thickening of the rectum. There is moderate stool burden throughout the colon with well-formed stool as well as moderate focal fecal distention of the rectum. Appendix: Within normal limits. Intraperitoneal space: No free air. No significant fluid collection. Vasculature: Within normal limits. No abdominal aortic aneurysm or dissection. Lymph nodes: No pathologically enlarged lymph nodes. Bladder: Unremarkable as visualized. Reproductive: Unremarkable as visualized. Bones/joints: Unremarkable. No acute fracture. Soft tissues: No focal abnormality. IMPRESSION: 1. Focal mural thickening of the rectum. Correlate clinically with physical exam for evidence of proctitis. 2. Moderate stool burden throughout the colon with moderate fecal distention of the rectum. Correlate for constipation. Dictated and Authenticated by: Caspre Walters MD. Ordering:LENIN Hennessy MD
[2019-03-26 20:05] LABS: Bilirubin Negative (Negative); Blood Negative (Negative); Clarity Clear (Clear); Glucose Negative (Negative); Ketones Negative (Negative); Leukocyte Esterase Negative (Negative); Nitrite Negative (Negative); Urobilinogen 0.2 EU/dL (Up TO 0.2)
--- NOTE | 2019-03-26 21:15 | NUR.NOTE ---
SSE x 2, scant amount of stool out. Pt reports continued rectal pressure.
[2019-03-26 21:38] VITALS: BP 140/84; PULSE 88; TEMP 37.1; O2SAT 97
== END 2019-03-26 21:50 | disposition home or self-care (01) ==
PROVIDERS: Emergency Provider Physician Assistant; PCP Family Medicine
DX: K59.00 Constipation, unspecified (principal); R11.0 Nausea; R10.84 Generalized abdominal pain; I10 Essential (primary) hypertension
CPT/HCPCS: 36415; 80053; 96360; 99285; 74177; 81003; 83605; 83735; 85025; 99281; J3490

== ENCOUNTER 2019-05-09 11:05 | Outpatient (REF) | payer MEDICAID, SELFPAY ==
[2019-05-09 12:40] LABS: Anion Gap 9.7 mmol/L (3-11); BUN 10 mg/dL (7-18); C-Reactive Protein 0.19 mg/dL (0.0-0.3); CO2 29.3 mmol/L (21.0-32.0); CREATININE 0.86 mg/dL (0.70-1.30); Calcium 9.4 mg/dL (8.5-10.1); Chloride 101 mmol/L (98-107); Glucose 91 mg/dL (74-106); Magnesium 1.9 mg/dL (1.8-2.4); Potassium 4.6 mmol/L (3.5-5.1); Sodium 140 mmol/L (136-145); TSH (W/Ref FT4) 3.02 uIU/mL (0.36-3.74)
[2019-05-10 11:36] LABS: Hepatitis B Surface Ag Negative (Negative)
[2019-05-10 11:50] LABS: HIV-1/2 Ag & Ab Screen Negative (Negative)
[2019-05-10 12:24] LABS: Hepatitis C Ab w Rflx HCV PCR Negative (Negative)
== END 2019-05-09 11:25 ==
LOC: NCHCN 11:05
PROVIDERS: PCP Family Medicine; Visit Provider Family Medicine
DX: E83.42 Hypomagnesemia (principal); M79.643 Pain in unspecified hand; F11.20 Opioid dependence, uncomplicated; Z11.4 Encounter for screening for human immunodeficiency virus [HIV]; Z11.59 Encounter for screening for other viral diseases; I10 Essential (primary) hypertension
CPT/HCPCS: 80048; 86803; 87340; 87389; 83735; 84443; 86140

== ENCOUNTER 2019-05-21 20:57 | Emergency (ER) | payer MEDICAID, SELFPAY ==
[2019-05-21 21:04] VITALS: BP 154/115; PULSE 103; RESP 16; TEMP 36.7; O2SAT 96
--- NOTE | 2019-05-21 21:09 | W.ED.GENAD ---
Discharge Plan Disposition Patient Disposition: HOME Condition: Stable Discharge Details Chief Complaint: DentalOral Clinical Impression: Pain due to dental caries Primary Care Provider: Estuardo Hernandez ED Provider: Aleisha Mcpherson Home Meds and New Rx's Prescriptions: New penicillin V potassium 500 mg tablet 500 mg PO BID 7 Days Qty: 14 RF: 0 tramadol 50 mg tablet 50 mg PO BID PRN (Reason: pain) 2 Days Qty: 4 RF: 0 Continued buprenorphine-naloxone [Suboxone] 8-2 mg Film 2 film BUCCAL DAILY RF: 0 ondansetron HCl [Zofran] 4 mg Tablet 4 mg PO PRNRF: 0 sertraline 25 mg Tablet 25 mg PO DAILY RF: 0 lisinopril 5 mg Tablet 5 mg PO DAILY RF: 0 omeprazole 20 mg Tablet,Delayed Release (Dr/Ec) 20 mg PO DAILY RF: 0 Discharge Instructions Instructions: Dental Caries (ED) Additional Instructions: Follow up with primary care provider in 3-5 days. Return to ED sooner if any worsening or concerns. Increase oral fluids.. You do still need to follow-up with a dentist dental resources given to you see additional sheet. Please take Tylenol or Ibuprofen with food every 4-6 hours as needed for pain and swelling. Stop smoking. Practice good dental hygiene. Referrals: Estuardo Hernandez [Primary Care Provider] - Medical Decision Making 29-year-old male presents with right lower molar dental pain. He does have poor dentition and noted broken tooth. He reports drainage however there is no dental abscess, no fluctuant area near his gum. He does have some gingival swelling and erythema noted to the base of the tooth. He is speaking in full sentences, denies any sore throat or neck pain. Patient is a smoker he reports he cannot get into a dentist for 2 months. Patient agrees to dental block will place on penicillin give tramadol 50 mg p.o. in department. Dental block performed see procedure note above patient tolerated well and anesthesia was achieved. Patient given community dental resources and instructed to follow-up with dentist soon as possible. Patient placed on antibiotics penicillin 500 mg twice daily x7 days. Instructed to stop smoking. HPI General Mode of arrival: ambulatory. Date/Time Provider Initiated Documentation: 05/21/19 20:59. Limitations to Documentation: no limitations. Information obtained by: patient. HPI Narrative: 29-year-old male presents with right lower molar dental pain. He does have poor dentition and noted broken tooth. He reports drainage however there is no dental abscess, no fluctuant area near his gum. He does have some gingival swelling and erythema noted to the base of the tooth. He is speaking in full sentences, denies any sore throat or neck pain. Patient is a smoker he reports he cannot get into a dentist for 2 months. Related Data Home Medications Medication Instructions Recorded Confirmed buprenorphine-naloxone [Suboxone] 2 film BUCCAL DAILY 03/22/19 03/26/19 lisinopril 5 mg PO DAILY 03/26/19 03/26/19 omeprazole 20 mg PO DAILY 03/26/19 05/21/19 ondansetron HCl [Zofran] 4 mg PO PRN 03/26/19 sertraline 25 mg PO DAILY 03/26/19 05/21/19 penicillin V potassium 500 mg PO BID 7 Days #14 tab 05/21/19 tramadol 50 mg PO BID PRN 2 Days #4 tab 05/21/19 Previous Rx's Medication Instructions Recorded penicillin V potassium 500 mg PO BID 7 Days #14 tab 05/21/19 tramadol 50 mg PO BID PRN 2 Days #4 tab 05/21/19 Allergies Allergy/AdvReac Type Severity Reaction Status Date / Time levofloxacin [From Levaquin] Allergy Agitation Unverified 03/26/19 17:31 vanilla Allergy Severe Anaphylaxsi Uncoded 03/26/19 17:31 s bee Allergy Uncoded 03/26/19 17:32 General Stated Complaint: DentalOral ALESSANDRA: 4 Review of Systems Narrative: Constitutional: Negative for weight loss, alert and oriented, well groomed, normal body habitus, appears comfortable. HEENT: Denies trauma, headaches, blurry vision, nasal discharge, sore throat, trouble swallowing. Positive dental pain and dental caries. Chest: Denies chest pain, palpitations, irregular rhythm, hypertension. Respiratory: Denies Shortness of breath, cough, hemoptysis. GI: Denies abdominal pain, nausea, vomiting, diarrhea, constipation. : Denies dysuria, hematuria, flank pain, rectal bleeding. Neuro: Denies dizziness, blurry vision, weakness, syncope, headache or facial numbness. Hematologic: Denies easy bruising, intolerance to heat or cold, hair loss. [facility] Medical History HTN (hypertension) (Chronic) Social History Smoking/Tobacco Use Status: Current every day Tobacco Type: cigarettes Alcohol Intake: current Alcohol Intake frequency: holidays/special occasions only Drug use: Occasionally Substance use type: marijuana Do you feel safe at home: Yes Do you feel safe in your relationship?: Yes Exam Narrative Exam Narrative: Constitutional: Allert and oriented x3. Appears stated age. Normal body habitus. Head: Normocephalic, no trauma. Eyes: Pupils PERRLA, Red reflex noted, EOM's intact. Eyelids symmetrical withour lesions, discharge, or swelling. ENT: Bilateral TM's WNL, External ear normal to inspection, no mastoid TTP, swelling, or erythema, Nasal turbinates WNL, no nasal discharge. Poor dentition noted, right lower molar broken with a dental caries noted surrounding gingival erythema and swelling no area of fluctuance no abscess., Posterior pharynx WNL, no exudate. Chest: RRR, Normal S1, S2, distal pulses intact. Resp: Lungs clear to auscultation bilaterally, no wheezes, rales, or rhonchi. Musculoskeletal: Normal gait, 5/5 strength to all four extremities. Skin: No suspicious rashes or lesions. Capillary refill less than 2 sec. Neurologic: Cranial nerves II-XII intact. Alert and oriented x 3. DTR's intact. Hematologic/Lymphatic: No ecchymosis, no lymphadenopathy. [facility] Teeth image: 1. Dental jovanny and broken tooth noted Course Vital Signs Vital signs: Vital Signs Temperature 36.7 C 05/21/19 21:04 Pulse 103 H 05/21/19 21:04 Respiratory Rate 16 05/21/19 21:04 Blood Pressure 154/115 H 05/21/19 21:04 Pulse Oximetry 96 05/21/19 21:04 Temperature 36.7 C 05/21/19 21:04 Temperature Source Skin 05/21/19 21:04 Pulse 103 H 05/21/19 21:04 Respiratory Rate 16 05/21/19 21:04 Blood Pressure 154/115 H 05/21/19 21:04 Blood Pressure Position Sitting 05/21/19 21:04 Pulse Oximetry 96 05/21/19 21:04 Oxygen Delivery Method Room Air 05/21/19 21:04 Oxygen Flow Rate 0 05/21/19 21:04 Pain Level 10 05/21/19 21:04 Procedures Nerve Block Nerve Block 1: Time out performed: Yes Local Anesthetic: Lidocaine 1% and Bupivicaine 0.5% Amount of anesthesia used (mL): 1 Side: right Intraoral Nerve Block: inferior alveolar Procedure Successful: Yes Patient Tolerated Procedure: well and no complications Complications: none
[2019-05-21] MEDS: Bupivacaine 0.5% Pres-Free 30 ML VIAL IJ (21:16)
[2019-05-21] MEDS: traMADol 50 MG TAB PO (21:17)
[2019-05-21] MEDS: Penicillin V POTASSIUM 500 MG TAB PO (21:17)
[2019-05-21] MEDS: Lidocaine 1% Pres-Free 5 ML VIAL IJ (21:18)
== END 2019-05-21 21:40 | disposition home or self-care (01) ==
PROVIDERS: Emergency Provider Registered Nurse Emergency; PCP Family Medicine
DX: R68.84 Jaw pain (principal); K02.9 Dental caries, unspecified; S02.5XXA Fracture of tooth (traumatic), initial encounter for closed fracture; X58.XXXA Exposure to other specified factors, initial encounter; I10 Essential (primary) hypertension
CPT/HCPCS: 64450

== ENCOUNTER 2019-12-15 13:15 | Emergency (ER) | payer MEDICAID, SELFPAY ==
[2019-12-15] VITALS (16 sets, daily range): BP systolic 121–180; BP diastolic 72–109; PULSE 81–115; RESP 8–20; TEMP 37.2; O2SAT 92–99
--- NOTE | 2019-12-15 13:15 | RT.EKG_ITS ---
APPROVED REPORT Exam: Resting ECG Patient Location: E HR:100 bpm ECG Measurements Heart Rate 100 AXIS [place] 143 P 70 QRSd 101 QRS 74 QT 361 T 30 QTc 466 Conclusion Sinus tachycardia...rate> 99. No STEMI. I have reviewed and interpreted ECG and agree with software generated interpretation.
--- NOTE | 2019-12-15 13:45 | ED.GENADUL_ITS ---
Discharge Plan Disposition Patient Disposition: AGAINST MEDICAL ADVICE Condition: Stable Discharge Details Clinical Impression: Electrocution Primary Care Provider: Estuardo Hernandez ED Provider: Esme Aviles Home Meds and New Rx's Prescriptions: Continued buprenorphine-naloxone [Suboxone] 12-3 mg Film 1 film BUCCAL Q24H RF: 0 lisinopril 5 mg Tablet 5 mg PO DAILY RF: 0 Discharge Instructions Instructions: [employer] in Adults (ED) Additional Instructions: You are leaving the hospital AGAINST MEDICAL ADVICE. Your muscle protein level called creatinine kinase was elevated. It is important to continuously measure this number to know if it is increasing or decreasing as this may be a sign of muscle damage and would require admission to the hospital for further monitoring. Please call your primary care doctor today or Wednesday morning to schedule a follow-up appointment for reevaluation. Return immediately to the emergency department if you develop any worsening or new concerning symptoms such as persistent headaches, vomiting, dizziness, chest pain, shortness of breath, muscle pain. Discharge Data Discharge Date/Time-TO BE ENTERED AT DEPARTURE: 12/15/19 16:05 Discharge Physician: Esme Aviles Medical Decision Making 39-year-old male with a history of hypertension who presents to the ED for evaluation after possible electrocution at work in which he was using a jackhammer and dragging it over water and coworkers noticed an arc emanating from the jackhammer up to his body. Patient ambulated into the ED in no acute distress. Blood pressure 160/100. He denies any acute complaints. EKG on arrival notes a rate of 100, sinus with no acute ST-T wave ischemic changes. Patient has questionable barely noticeable singeing to hairs of left dorsal forearm with surrounding abrasions and blood below left fourth fingernail. Patient states he is unsure if the injury to the nail abrasions to the forearm occurred from another injury at work. He states the voltage of the jackhammer was approximately 121. Screening labs obtained and unremarkable. Troponin negative. CK elevated 788. Case discussed with [facility] trauma Dr. Molina who agreed that we would advise patient stay for continued monitoring and recheck of CK to see if it is upper downtrending. Patient states he does not want to stay in the hospital and needs to leave. Patient states he has no symptoms while here in the emergency department and feels great . He was advised of the risks of leaving including and disability due to a serious underlying pathology including rhabdomyolysis, arrhythmia, electrolyte abnormality. He demonstrates capacity make decisions. Advised to follow up with the primary care doctor for re-evaluation. Advised to return here immediately with any worsening symptoms. Medical Records Medical records reviewed: Yes I reviewed the patient's medical records. Lab Data Lab results reviewed: Yes I reviewed the patient's lab results. Labs: Laboratory Tests Range/Units 12/15/19 12/15/19 12/15/19 14:00 14:00 14:00 WBC (4.4-10.8) 10^3/uL 8.23 RBC (4.36-5.78) 10^6/uL 4.83 Hgb (13.5-17.5) g/dL 14.1 Hct (40.0-50.0) % 40.8 MCV (80-95) fL 84.5 MCH (27.0-33.0) pg 29.2 MCHC (32.0-36.0) % 34.6 RDW (11.8-14.1) % 12.5 Plt Count (130-400) 10^3/uL 235 MPV (8.0-11.0) fL 10.2 Immature Gran % 0.2 Neutrophils % 68.0 Lymphocytes % 20.2 Monocytes % 8.9 Eosinophils % 2.2 Basophils % 0.5 Nucleated RBC % % 0 Absolute Neutrophils (1.2-6.7) 10^3/uL 5.60 Absolute Lymphocytes (1.2-3.4) 10^3/uL 1.66 Absolute Monocytes (0.1-0.8) 10^3/uL 0.73 Absolute Eosinophils (0.0-0.7) 10^3/uL 0.18 Absolute Basophils (0.0-0.2) 10^3/uL 0.04 PT (9.3-11.0) sec 11.0 INR (0.9-1.1) 1.1 APTT (21.0-31.4) sec 28.0 Sodium (136-145) mmol/L 138 Potassium (3.5-5.1) mmol/L 3.9 Chloride (98-107) mmol/L 101 Carbon Dioxide (21.0-32.0) mmol/L 26.9 Anion Gap (3-11) mmol/L 10.1 BUN (7-18) mg/dL 16 Creatinine (0.70-1.30) mg/dL 1.00 Estimated GFR/1.73 m2 (mL/min/1.73m2) >= 60.00 Glucose (74-106) mg/dL 112 H Calcium (8.5-10.1) mg/dL 9.5 Magnesium (1.8-2.4) mg/dL 1.9 Total Bilirubin (0.2-1.0) mg/dL 1.2 H AST (15-37) U/L 55 H ALT (16-63) U/L 64 H Alkaline Phosphatase (46-116) U/L 70 Creatine Kinase (39-308) U/L Troponin I (<0.06) ng/mL < 0.05 Total Protein (6.4-8.2) g/dL 7.8 Albumin (3.4-5.0) g/dL 4.3 Range/Units 12/15/19 14:00 WBC (4.4-10.8) 10^3/uL RBC (4.36-5.78) 10^6/uL Hgb (13.5-17.5) g/dL Hct (40.0-50.0) % MCV (80-95) fL MCH (27.0-33.0) pg MCHC (32.0-36.0) % RDW (11.8-14.1) % Plt Count (130-400) 10^3/uL MPV (8.0-11.0) fL Immature Gran % Neutrophils % Lymphocytes % Monocytes % Eosinophils % Basophils % Nucleated RBC % % Absolute Neutrophils (1.2-6.7) 10^3/uL Absolute Lymphocytes (1.2-3.4) 10^3/uL Absolute Monocytes (0.1-0.8) 10^3/uL Absolute Eosinophils (0.0-0.7) 10^3/uL Absolute Basophils (0.0-0.2) 10^3/uL PT (9.3-11.0) sec INR (0.9-1.1) APTT (21.0-31.4) sec Sodium (136-145) mmol/L Potassium (3.5-5.1) mmol/L Chloride (98-107) mmol/L Carbon Dioxide (21.0-32.0) mmol/L Anion Gap (3-11) mmol/L BUN (7-18) mg/dL Creatinine (0.70-1.30) mg/dL Estimated GFR/1.73 m2 (mL/min/1.73m2) Glucose (74-106) mg/dL Calcium (8.5-10.1) mg/dL Magnesium (1.8-2.4) mg/dL Total Bilirubin (0.2-1.0) mg/dL AST (15-37) U/L ALT (16-63) U/L Alkaline Phosphatase (46-116) U/L Creatine Kinase (39-308) U/L 788 H Troponin I (<0.06) ng/mL Total Protein (6.4-8.2) g/dL Albumin (3.4-5.0) g/dL ECG Data Attestation: I personally reviewed and interpreted this ECG (s) as follows: Interpretation: Rate of 100, sinus, no acute ST elevation or depression. [place] 143. QRS 101. QTc 466. HPI General Mode of arrival: ambulatory . Date/Time Provider Initiated Documentation: 12/15/19 13:21 . Limitations to Documentation: no limitations . Information obtained by: patient . HPI Narrative: Patient is a 29-year-old male with a history of hypertension who presents for an apparent electrocution at work 3 hours prior to arrival. Patient states he was holding a jackhammer which was plugged and but not turned on when he was dragging across a wet road and his coworker saw an arc from the ground up to his body. Patient states he felt a sudden jolt lasting a few seconds going from the jackhammer to his left arm up to his left shoulder. He then states he felt jittery for about 10 to 15 minutes. He denies any symptoms at present. He states at the time of the jolt he was wearing rubber gloves and noted that there was singed arm hair on his left forearm and smelled burnt hair. Patient states he also has some abrasions on his left arm and a possible cut around his left fourth fingernail but he feels that he obtained these injuries on the job and not during the possible electrocution. Patient denies any syncope, nausea, vomiting, fall, chest pain, shortness of breath, abdominal pain, neck or back pain or any acute complaints at this time. Related Data Home Medications Medication Instructions Recorded Confirmed lisinopril 5 mg PO DAILY 03/26/19 12/15/19 buprenorphine-naloxone [Suboxone] 1 film BUCCAL Q24H 12/15/19 12/15/19 Allergies Allergy/AdvReac Type Severity Reaction Status Date / Time levofloxacin [From Levaquin] Allergy Agitation Unverified 12/15/19 13:28 vanilla Allergy Severe Anaphylaxsi Uncoded 12/15/19 13:28 s bee Allergy Uncoded 12/15/19 13:28 General Stated Complaint: GenMedical ALESSANDRA: 2 Review of Systems All systems reviewed & are unremarkable except as noted in HPI and below Constitutional Constitutional: Reports as per HPI, Denies chills and Denies fever(s) Eyes Eyes: Denies blurry vision ENT Ears, Nose, Mouth, and Throat: Denies dizziness, Denies sore throat and Denies throat swelling Cardiovascular Cardiovascular: Denies chest pain and Denies dyspnea Respiratory Respiratory: Denies cough and Denies dyspnea Gastrointestinal Gastrointestinal: Denies abdominal pain, Denies diarrhea and Denies vomiting Genitourinary Genitourinary: Denies hematuria and Denies dysuria Musculoskeletal Musculoskeletal: Denies back pain and Denies numbness Integumentary/Breasts Skin/Breast: Denies lesions and Denies rash Neurologic Neurologic: Denies dizziness, Denies localized weakness and Denies numbness Allergic/Immunologic Allergic/Immunologic: Denies throat swelling PENDING SALE TO [facility] Medical History (Updated 12/15/19 @ 15:25 by Esme Aviles DO) HTN (hypertension) Social History Smoking/Tobacco Use Status: Current every day Tobacco Type: cigarettes Alcohol Intake: current Alcohol Intake frequency: holidays/special occasions only Drug use: Occasionally Substance use type: marijuana Do you feel safe at home: Yes Do you feel safe in your relationship?: Yes Exam Const General: cooperative and no acute distress Orientation: alert, awake and oriented x3 HENMT Head: normal to inspection Ears: hearing grossly normal bilaterally and external ears normal General nose exam: external nose normal Face and sinus: normal facial exam Mouth: oral mucosae normal Teeth and gingiva: dentition normal Throat: posterior oropharynx normal Eyes General: appearance normal, both eyes and all related structures Eyelids: eyelids normal Pupils: PERRL EOM: EOM intact bilaterally Neck Neck: normal visual inspection Lymphatic: no lymphadenopathy noted Chest Chest: normal inspection of the chest Resp Effort & Inspection: normal respiratory effort and able to speak in complete sentences Auscultation: clear to auscultation bilaterally Cardio Rate: regular rate Rhythm: regular rhythm GI Inspection: normal to inspection Palpation: soft, not firm, no guarding, no hepatosplenomegaly, no masses and nontender Auscultation: normal bowel sounds Back/Spine/Pelvis Back: no CVA tenderness Skin General skin exam: no rashes or lesions noted Neuro General: patient alert, patient awake, patient oriented x3, gait normal, moves all extremities, no meningeal signs and no focal motor deficits Cognition: normal cognition Speech: speech normal Gait: normal gait Motor: muscle tone normal throughout and strength 5/5 throughout Sensory Exam: no sensory deficits noted Extrem General: full ROM and capillary refill normal Other: Barely noticeable singeing of hairs to left dorsal forearm with superficial abrasions surrounding this area. There is dried blood below the left fourth fingernail but no obvious injury, edema or ecchymosis. Psych Appearance: grossly normal Mental Status: mental status grossly normal Speech and Movement: speech and movement normal Affect: normal affect Thought Process: normal Course Vital Signs Vital signs: Vital Signs Temperature 98.9 F 12/15/19 13:21 Pulse 97 H 12/15/19 13:21 Respiratory Rate 20 12/15/19 13:21 Blood Pressure 180/109 H 12/15/19 13:21 Pulse Oximetry 99 12/15/19 13:21 Temperature 98.9 F 12/15/19 13:21 Temperature Source Oral 12/15/19 13:21 Pulse 97 H 12/15/19 13:21 Respiratory Rate 18 12/15/19 13:36 Respiratory Effort Non-Labored 12/15/19 13:36 Respiratory Depth Normal 12/15/19 13:36 Respiratory Pattern Normal 12/15/19 13:36 Blood Pressure 180/109 H 12/15/19 13:21 Blood Pressure Position Supine 12/15/19 13:21 Pulse Oximetry 99 12/15/19 13:21 Oxygen Delivery Method Room Air 12/15/19 13:21 Oxygen Flow Rate 0 12/15/19 13:21 Pain Level 0 12/15/19 13:21
[2019-12-15] MEDS: Normal Saline 1,000 ML 1000 ML IV (14:08)
[2019-12-15 14:09] LABS: Abs Immature Grans 0.02 10^3/uL (0.0-0.06); Absolute Basophil Count 0.04 10^3/uL (0.0-0.2); Absolute Eosinophil Count 0.18 10^3/uL (0.0-0.7); Absolute Lymphocyte Count 1.66 10^3/uL (1.2-3.4); Absolute Monocyte Count 0.73 10^3/uL (0.1-0.8); Basophils % 0.5; Eosinophils % 2.2; HCT 40.8 % (40.0-50.0); HGB 14.1 g/dL (13.5-17.5); Immature Grans % 0.2; Lymphocytes % 20.2; MCH 29.2 pg (27.0-33.0); MCHC 34.6 % (32.0-36.0); MCV 84.5 fL (80-95); MPV 10.2 fL (8.0-11.0); Monocytes % 8.9; Nucleated RBC 0 %; Platelet Count 235 10^3/uL (130-400); RBC 4.83 10^6/uL (4.36-5.78); RDW 12.5 % (11.8-14.1); RDW-SD 38.4 fL; WBC 8.23 10^3/uL (4.4-10.8)
[2019-12-15 14:22] LABS: INR 1.1 (0.9-1.1)
[2019-12-15 14:32] LABS: ALT 64 U/L (16-63); AST 55 U/L (15-37); Albumin 4.3 g/dL (3.4-5.0); Alkaline Phosphatase 70 U/L (46-116); Anion Gap 10.1 mmol/L (3-11); BUN 16 mg/dL (7-18); Bilirubin, Total 1.2 mg/dL (0.2-1.0); CO2 26.9 mmol/L (21.0-32.0); Calcium 9.5 mg/dL (8.5-10.1); Chloride 101 mmol/L (98-107); Glucose 112 mg/dL (74-106); Magnesium 1.9 mg/dL (1.8-2.4); Potassium 3.9 mmol/L (3.5-5.1); Sodium 138 mmol/L (136-145); Total Protein 7.8 g/dL (6.4-8.2)
[2019-12-15 14:33] LABS: Troponin I < 0.05 ng/mL (<0.06)
[2019-12-15] MEDS: Lisinopril 5 MG TAB PO (14:34)
[2019-12-15 15:32] LABS: Creatine Kinase 788 U/L (39-308)
== END 2019-12-15 16:05 | disposition left against medical advice (07) ==
PROVIDERS: Emergency Provider Physician Assistant; PCP Family Medicine
DX: T75.4XXA Electrocution, initial encounter (principal); S50.812A Abrasion of left forearm, initial encounter; W86.1XXA Exposure to industrial wiring, appliances and electrical machinery, initial encounter; R74.8 Abnormal levels of other serum enzymes; Y99.0 Civilian activity done for income or pay; I10 Essential (primary) hypertension; Z53.29 Procedure and treatment not carried out because of patient's decision for other reasons
CPT/HCPCS: 36415; 80053; 82550; 93005; 96360; 99284; 83735; 84484; 85025; 85610; 85730; 93010; 99285

== ENCOUNTER 2019-12-15 18:40 | Emergency (ER) | payer MEDICAID, SELFPAY ==
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
[2019-12-15 18:41] VITALS: BP 131/88; PULSE 95; RESP 18; TEMP 37; O2SAT 96
[2019-12-15 19:25] LABS: Anion Gap 5.2 mmol/L (3-11); BUN 15 mg/dL (7-18); CO2 26.8 mmol/L (21.0-32.0); CREATININE 0.82 mg/dL (0.70-1.30); Chloride 101 mmol/L (98-107); Creatine Kinase 683 U/L (39-308); Glucose 103 mg/dL (74-106); Potassium 3.5 mmol/L (3.5-5.1); Sodium 133 mmol/L (136-145)
== END 2019-12-15 20:11 | disposition home or self-care (01) ==
PROVIDERS: Emergency Provider Physician Assistant; PCP Family Medicine
DX: R74.8 Abnormal levels of other serum enzymes (principal); T75.4XXA Electrocution, initial encounter; W86.1XXA Exposure to industrial wiring, appliances and electrical machinery, initial encounter
CPT/HCPCS: 36415; 80048; 82550; 99283

== ENCOUNTER 2020-03-22 20:41 | Emergency (ER) | payer MEDICAID, SELFPAY ==
[2020-03-22 20:51] VITALS: BP 154/98; PULSE 111; RESP 20; TEMP 36.8; O2SAT 96
--- NOTE | 2020-03-22 20:54 | W.ED.GENAD ---
Discharge Plan Disposition Patient Disposition: HOME Condition: Good Discharge Details Clinical Impression: Headache Primary Care Provider: Estuardo Hernandez ED Provider: Roger Whiting [place] Meds and New Rx's Prescriptions: New prochlorperazine maleate 10 mg tablet 10 mg PO Q6H PRN (Reason: headache) Qty: 10 RF: 0 Continued lisinopril 5 mg Tablet 5 mg PO DAILY RF: 0 Discharge Instructions Instructions: General Headache (ED) Additional Instructions: Rest and hydrate over the weekend. Avoid Tylenol and nonsteroidals over the weekend. Use prochlorperazine if needed for headache. Follow-up with primary care Wednesday as planned. Return to ED for neurologic change, mental status change, syncope, persistent chest pain, shortness of breath. Referrals: Estuardo Hernandez [Primary Care Provider] - Medical Decision Making Patient presenting with chief complaint of headache which has been worsening over the last month. It is not constant. There are no associated fever, meningeal signs, neurologic changes. He has significant photophobia. Likely migraine related. Will obtain noncontrast head CT. Will treat with IV fluids and Compazine. Patient also complains of intermittent left-sided rib pain. None today at all. Is not occurring frequently. Does have history of hypertension and smoking. However, given no chest pain in the last day or 2 will obtain EKG only. I do not feel laboratory studies are necessary at this time. He has follow-up with primary care on Wednesday. Headache much better after IV Compazine. CT head normal. EKG unchanged from previous. Patient will be discharged home with prescription for oral prochlorperazine. Follow-up primary care on Wednesday as planned. Return to ED for neurologic change, mental status change, syncope, persistent chest pain, shortness of breath. Medical Records Medical records reviewed: Yes I reviewed the patient's medical records. ECG Data Attestation: I personally reviewed and interpreted this ECG (s) as follows: Interpretation: see EKG HPI General Mode of arrival: ambulatory. Date/Time Provider Initiated Documentation: 03/22/20 20:53. Limitations to Documentation: no limitations. Information obtained by: patient and RN notes reviewed. HPI Narrative: Patient presents to ED with complaint of headache. Patient reports that he started getting headaches that were more intense than typical about a month ago. They are occurring daily at this point and are associated with photophobia. He is actually had to stop working and driving because the light bothers him so much. The headaches are not constant. They occur last 2 to 3 hours and with rest meditation go away. Nonsteroidals and Tylenol did not seem to help. No associated neurologic changes. No nausea vomiting. No fever. Also notes occasional left-sided sharp rib pain probably in the last month as well. This is less frequent. He has had none today. He did not have rib pain currently. He denies shortness of breath. He has a chronic smoker's cough which is unchanged and if anything better because he has decreased his amount of smoking. He did see primary care last week. Last 3 days the headaches have become much more frequent and severe. They seem to start behind the eyes and radiate backwards. Has been unable to sleep and presents now for evaluation. Related Data Home Medications Medication Instructions Recorded Confirmed lisinopril 5 mg PO DAILY 03/26/19 03/22/20 prochlorperazine maleate 10 mg PO Q6H PRN #10 tab 03/22/20 Previous Rx's Medication Instructions Recorded prochlorperazine maleate 10 mg PO Q6H PRN #10 tab 03/22/20 Allergies Allergy/AdvReac Type Severity Reaction Status Date / Time levofloxacin [From Levaquin] Allergy Agitation Unverified 03/22/20 20:56 vanilla Allergy Severe Anaphylaxsi Uncoded 03/22/20 20:56 s bee Allergy Uncoded 03/22/20 20:56 General ALESSANDRA: 2 Review of Systems Narrative: As documented in HPI otherwise negative as below. Const: no fever, chills, weakness Resp: no SOB, pleuritic pain CV: no diaphoresis, edema, syncope GI: no abdominal pain, nausea, vomiting, diarrhea Neuro: no numbness, focal weakness, confusion PFSH Medical History HTN (hypertension) Surgical History No significant past surgical history Social History Smoking/Tobacco Use Status: Current every day Tobacco Type: cigarettes Smoking risk assessment performed?: Yes Alcohol Intake: former Drug use: Current Sobriety Do you feel safe at home: Yes Do you feel safe in your relationship?: Yes Exam Narrative Exam Narrative: Const: WDWN male in NAD. HEENT: NC/AT. Normal facial exam. Eyes: Normal conjunctiva and sclera. PERRL and EOMI. Neck: Supple. Trachea midline. Lungs: Normal respiratory effort. Lungs are clear. Cor: RRR without murmur/gallop. Good radial pulses Neuro: A+O x 3. Normal speech, mentation, gait. Cranial nerves II - XII grossly intact. No gross motor or sensory deficit. Normal FTN. Normal visual moore. Ext: No C/C/E. Skin: Warm and dry without rash.
--- NOTE | 2020-03-22 21:00 | RT.EKG_ITS ---
APPROVED REPORT Exam: Resting ECG Patient Location: E HR:104 bpm ECG Measurements Heart Rate 104 AXIS AR 138 P 42 QRSd 102 QRS 87 QT 330 T -2 QTc 435 Conclusion Sinus tachycardia...rate> 99 Probable inferior infarct, age indeterminate...Q>35mS, T neg, II III aVF There are no significant changes compared to prior EKG performed on 12/15/2019 at 13:26.
[2020-03-22] MEDS: Prochlorperazine 10 MG/2 ML VIAL IVP (21:26)
[2020-03-22] MEDS: Normal Saline 1,000 ML 1000 ML IV (21:26)
--- NOTE | 2020-03-22 21:35 | DI.CT_ITS ---
EXAM: CT HEAD WO CLINICAL HISTORY: headache. TECHNIQUE: Imaging Protocol: Axial computed tomography images with coronal and sagittal reformatted images were created and reviewed COMPARISON: CT CT orbits w from 12/27/2017. FINDINGS: There are no skull fractures nor fluid in the visualized paranasal sinuses. There is no evidence of intracranial hemorrhage, mass effect, or shift of midline structures. There are no extra-axial fluid collections. The ventricles are not enlarged or shifted and there is no blo od within the ventricular system nor within the basal cisterns. IMPRESSION: No acute intracranial findings on this noninfused CT scan of the brain. RADIATION DOSE DELIVERED: 934.77mGy.cm Total DLP DATA REPOSITORY: All CT scans at this facility are submitted to the National Radiology Data Registry (NRDR) Dose Index Registry (DIR) with the [employer] ([employer]). RADIATION OPTIMIZATION: All CT scans at this facility use at least one of these dose optimization te chniques: automated exposure control; mA and/or kV adjustment per patient size (includes targeted exa ms where dose is matched to clinical indication); or iterative reconstruction.
--- NOTE | 2020-03-22 21:54 | DI.VRAD_ITS ---
PROCEDURE INFORMATION: Exam: CT Head Without Contrast Exam date and time: 03/22/2020 9:13 PM Age: 29 years old Clinical indication: Pain; Headache not specified TECHNIQUE: Imaging protocol: Computed tomography of the head without contrast. Radiation optimization: All CT scans at this facility use at least one of these dose optimization techniques: automated exposure control; mA and/or kV adjustment per patient size (includes targeted exams where dose is matched to clinical indication); or iterative reconstruction. COMPARISON: No relevant prior studies available. FINDINGS: Brain: Normal. No hemorrhage. Unremarkable white matter. No mass effect. Cerebral ventricles: No ventriculomegaly. Bones/joints: Unremarkable. No acute fracture. Paranasal sinuses: Visualized sinuses are unremarkable. No fluid levels. Mastoid air cells: Visualized mastoid air cells are well aerated. Soft tissues: Unremarkable. IMPRESSION: No acute abnormality. Dictated and Authenticated by: Galo Fry MD. Ordering:FRANKO Duran MD
[2020-03-22 22:36] VITALS: PULSE 87; RESP 16; O2SAT 96
== END 2020-03-22 22:40 | disposition home or self-care (01) ==
PROVIDERS: Emergency Provider Emergency Medicine; PCP Family Medicine
DX: H53.143 Visual discomfort, bilateral (principal); R51.9 Headache, unspecified; J41.0 Simple chronic bronchitis; I10 Essential (primary) hypertension
CPT/HCPCS: 93005; 96361; 96374; 99284; 70450; 93010; J0780

== ENCOUNTER 2020-07-01 20:33 | Outpatient (REF) | payer MEDICAID, SELFPAY ==
[2020-07-01 14:49] LABS: BUN 5 mg/dL (7-18); Calcium 9.1 mg/dL (8.5-10.1); Glucose 94 mg/dL (74-106)
[2020-07-01 14:50] LABS: ALT 296 U/L (16-63); AST 143 U/L (15-37); Albumin 4.1 g/dL (3.4-5.0); Alkaline Phosphatase 95 U/L (46-116); Anion Gap 8.2 mmol/L (3-11); Bilirubin, Total 0.5 mg/dL (0.2-1.0); CO2 28.8 mmol/L (21.0-32.0); CREATININE 0.7 mg/dL (0.70-1.30); Chloride 102 mmol/L (98-107); Creatine Kinase 88 U/L (39-308); Potassium 4.5 mmol/L (3.5-5.1); Sodium 139 mmol/L (136-145); Total Protein 7.6 g/dL (6.4-8.2)
[2020-07-02 10:20] LABS: Hepatitis B Surface Ag Negative (Negative)
[2020-07-02 10:52] LABS: HIV-1/2 Ag & Ab Screen Negative (Negative)
[2020-07-02 11:05] LABS: Hepatitis C Ab w Rflx HCV PCR Reactive (Negative)
[2020-07-04 15:09] LABS: HCV RNA Qualitative Detected (Undetected)
== END 2020-07-01 20:34 | disposition home or self-care (01) ==
LOC: NCHCN 20:33
PROVIDERS: PCP Family Medicine; Visit Provider Family Medicine
DX: Z11.59 Encounter for screening for other viral diseases (principal); Z11.4 Encounter for screening for human immunodeficiency virus [HIV]; R74.01 Elevation of levels of liver transaminase levels; R74.8 Abnormal levels of other serum enzymes
CPT/HCPCS: 80053; 82550; 86803; 87340; 87389; 87522

== ENCOUNTER 2020-11-27 22:04 | Emergency (ER) | payer MEDICAID, SELFPAY ==
[2020-11-27] VITALS (15 sets, daily range): BP systolic 134–175; BP diastolic 84–95; PULSE 84–114; RESP 12–23; TEMP 36.6; O2SAT 95–99
--- NOTE | 2020-11-27 22:15 | RT.EKG_ITS ---
APPROVED REPORT Exam: Resting ECG Reason for Exam: evaluate for zofran Patient Location: E HR:79 bpm ECG Measurements Heart Rate 79 AXIS MI 134 P 60 QRSd 98 QRS 57 QT 344 T 24 QTc 395 Conclusion Sinus rhythm...normal P axis, V-rate 60- 99
--- NOTE | 2020-11-27 22:23 | W.ED.GENAD ---
Discharge Plan Disposition Patient Disposition: AGAINST MEDICAL ADVICE Condition: Stable Discharge Details Clinical Impression: ETOH abuse Primary Care Provider: Estuardo Hernandez ED Provider: Ravi Grant Home Meds and New Rx's Prescriptions: New chlordiazepoxide HCl 25 mg capsule 50 mg PO BID PRN5 Days Qty: 10 RF: 0 clindamycin HCl 150 mg capsule 450 mg PO TID 7 Days Qty: 63 RF: 0 No Action lisinopril 5 mg Tablet 5 mg PO DAILY RF: 0 Discharge Instructions Instructions: Abuse of Alcohol (ED) Additional Instructions: At this time it is our recommendation that you stay overnight to be watched. As we have discussed you understand the risks and benefits of going home, and have chosen that is your decision. We have given you a prescription for medication called Librium, please take this as directed if you have symptoms of withdrawal. Please follow-up closely with your outpatient resources for helping to conquer this better with alcohol. The recovery coaches can be reached at [phone]. If you notice any worsening of your symptoms, or any new symptoms such as vomiting, diarrhea, fever, chills, shortness of breath, chest pain, numbness, weakness, or fainting , please return immediately to the emergency department for reevaluation. Please follow up with your primary care provider as soon as possible for reassessment and reevaluation. As always, it was a pleasure participating in your medical care today. Referrals: Estuardo Hernandez [Primary Care Provider] - Discharge Data Discharge Date/Time-TO BE ENTERED AT DEPARTURE: 11/28/20 01:31 Medical Decision Making <BYRON Fernandes - Last Filed: 11/29/20 08:06> Patient is a 30-year-old male presenting today with chief complaint of nausea and vomiting. He states this began approximately 2 hours ago. 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 States that he was feeling slightly unwell at that time, primarily laying to a sore tooth. Patient reports that he has a fractured left lower molar and has noted increased swelling and pain of the past 2 days. However, he states that about 2 hours ago began having frequent vomiting, unclear how many times he vomited, on his way to work. States that towards the end this was blood-tinged. No previous episodes like this. Patient reports that he has history of alcohol abuse but stopped drinking about 1 week ago. He denies any illicit drug use. He does smoke marijuana. He reports he is typically on lisinopril for his elevated blood pressure but is not been in to see his primary care so has subsequently run out of this medication. No previous abdominal surgeries. No fevers or chills. Patient is not vaccinated against COVID-19. Denies any recent travel or sick contacts. On exam, patient appears agitated with unusual speech pattern. Speaking rapidly with flight of ideas. He is having multiple complaints in rapid succession. He is tachycardic and hypertensive. Oxygen saturation is normal. Lungs are clear./No tachycardia, his cardiac auscultation is normal. Abdomen is benign with normal bowel sounds. He does have a fractured tooth in the left lower jaw with associated swelling concerning for possible abscess. Patient had initially reported to nursing staff that it has been 1 week since his last alcoholic beverage. However, especially been about 72 hours. Concerned that he is detoxing from alcohol at this time his shakiness, agitation, tachycardia, thought process and vomiting. We will treat with Ativan. AFter Ativan, patient reevaluated. He is much calmer, VS improving. Repeat exam of mouth completed. He has area of erythema and swelling to the buccal side of the left inferior dentition. He has no fluctuance. He reports that it has been draining. Concerned that he did have an abscess but that this is spontaneously draining. I do not see need for I&D at this time. Will begin on Clindamycin. His history and exam is more concerning with ETOH withdrawal. However, as he has a multitude of complaints, and pain everywhere. Patient placed on ETOH withdrawal scale. Kelsey received 1mg Ativan, feels and looks much improved. His initial score would put him at 4mg Ativan IV, however, he looks very tired after 1mg, I am hesitant to give a larger dose at this time. Requested consultation with manager of disaster recovery. Labs reviewed. No leukocytosis. Stable H&H. No significant abnormalities. Urinalysis with elevated gravity. Patient is positive for amphetamines and THC. Negative for alcohol. Reevaluated the patient. He is now reporting that he may have suffered a seizure prior to arrival. Described almost falling asleep in the car briefly but having abnormal movements described by coworker who is with him. Patient states that he believes he may have struck his head. Coworker reported to him that he was shaking. Patient describes feeling fuzzy for approximately 10 to 20 minutes after the event. He denies any seizures historically. Concerns the patient is having withdrawal. Concern for possible seizures. assistant women's rowing coach is with the patient. Patient is with expressing thoughts of leaving the department AGAINST MEDICAL ADVICE. He states that he has a friend that will be able to stay with him and continue to monitor him for safety. States that this friend is medically trained. I did discuss this at length with the patient and advised against this despite the training of his friend given the risks associated with his current state. He appears much calmer and appropriate at this time, appears clinically sober. At the end of my shift, care transferred to Dr. Grant. Patient is currently speaking with the manager of disaster recovery. Plan will be to admit if patient is agreeable for ETOH withdrawal with possible seizures. He was given his first dose of clindamycin for his dental infection. <Ravi Grant, DO - Last Filed: 11/28/20 01:30> Patient was signed out to me by my colleague Marcia Dozier, please refer to his physical exam, assessment and plan. At time of signout we are pending reassessment after the patient had a conversation with the manager of disaster recovery. Patient has made it clear that he would like to get off of all alcohol use. However he is also made it unequivocally clear that he does not want to stay overnight. He states that he is a wire insulator friend at home will be watching him this evening. Our recommendations are certainly that he stays for potential withdrawal symptoms. I did discuss with the patient admission/observation to the hospital , and at this time through notable discussion, weighing the risks and benefits, utilizing a shared decision making process, and with a very clear discussion on the benefit of admission and the risks associated with discharge including the unlikely but potential worst case scenario of or lifelong disability the patient has refused admission and would like to go home. Patient is of a appropriate age to make decisions. The patient is of sound mind, appears clinically sober, and has capacity to make decisions by my clinical exam. Respecting the patient's wishes, they will be discharged home. We will send a prescription of Librium to the patient's pharmacy. He has received anxiolytics here and at this time is notably stable and shows no evidence of altered mental status, or severe withdrawal currently. Patient does have outpatient resources for follow-up for his alcohol problems. I have extensively reviewed the treatment plan and discharge instructions with the patient. I have addressed all patient concerns at this time. The patient was made aware of what symptoms to monitor for that would warrant a return to the emergency department. Discussed the plan with the patient, they demonstrate verbal understanding and agreement with our assessment and plan at this time. The documentation in this chart was dictated using me[employer] dictation software. Please excuse any dictation errors. Additionally the patient did have evidence of mild tooth infection, no evidence of periapical abscess that needs active drainage at this time. We will give a prescription for clindamycin for home use. HPI <BYRON Fernandes - Last Filed: 11/29/20 08:06> General Mode of arrival: ambulatory. Date/Time Provider Initiated Documentation: 11/27/20 22:10. Limitations to Documentation: no limitations. Information obtained by: patient and RN notes reviewed. History of Present Illness 30 year old M presents to the emergency department with the chief complaint of pain all over, vomiting, dental pain, described as severe, Quality is described as aching (diffuse pain), and is localized to the mouth (dental pain left lower molar ). Patient reports no radiation. Patient started experiencing this hour(s) and it has been constant. No relieving factors improve symptom(s), No exacerbating factors reported . Patient notes headaches, loss of appetite, malaise and nausea/vomiting; denies chest pain, cough, diaphoresis, fever/chills, rash, shortness of breath and weakness. Patient did receive the following treatments prior to arrival, none Related Data Home Medications Medication Instructions Recorded Confirmed lisinopril 5 mg PO DAILY 03/26/19 11/27/20 chlordiazepoxide HCl 50 mg PO BID PRN 5 Days #10 cap 11/28/20 clindamycin HCl 450 mg PO TID 7 Days #63 cap 11/28/20 Previous Rx's Medication Instructions Recorded chlordiazepoxide HCl 50 mg PO BID PRN 5 Days #10 cap 11/28/20 clindamycin HCl 450 mg PO TID 7 Days #63 cap 11/28/20 Allergies Allergy/AdvReac Type Severity Reaction Status Date / Time levofloxacin [From Levaquin] Allergy Agitation Unverified 11/27/20 22:18 vanilla Allergy Severe Anaphylaxsi Uncoded 11/27/20 22:18 s bee Allergy Uncoded 11/27/20 22:18 General Stated Complaint: Nausea/Vomit/Diar ALESSANDRA: 2 Review of Systems <BYRON Fernandes - Last Filed: 11/29/20 08:06> Constitutional Constitutional: Reports as per HPI, Denies chills, Denies fatigue, Denies fever(s) and Denies headache(s) ENT Ears, Nose, Mouth, and Throat: Reports dental pain and Denies headache(s) Cardiovascular Cardiovascular: Reports as per HPI, Denies chest pain and Denies dyspnea Respiratory Respiratory: Reports as per HPI, Denies cough and Denies dyspnea Gastrointestinal Gastrointestinal: Reports as per HPI, Denies change in stool character, Denies coffee ground emesis, Reports nausea, Reports vomiting and Reports hematemesis (blood tinged vomit) Genitourinary Genitourinary: Denies system reviewed and no additional complaints, except as documented (patient denies any change in urinary habits) Musculoskeletal Musculoskeletal: Reports as per HPI and Reports myalgias (pain everywhere) Integumentary/Breasts Skin/Breast: Reports as per HPI and Denies rash Neurologic Neurologic: Reports as per HPI and Denies headache(s) Endocrine Endocrine: Denies fatigue PFSH <BYRON Fernandes - Last Filed: 11/29/20 08:06> Medical History HTN (hypertension) Surgical History No significant past surgical history Social History Smoking/Tobacco Use Status: Current every day Tobacco Type: cigarettes Smoking risk assessment performed?: Yes Alcohol Intake: current Alcohol Intake frequency: a few times a month Drug use: Daily Substance use type: marijuana Do you feel safe at home: Yes Do you feel safe in your relationship?: Yes Exam <BYRON Fernandes - Last Filed: 11/29/20 08:06> Const General: cooperative, uncomfortable, no acute distress, well developed, anxious and ill appearing acutely Nutritional Appearance: average body habitus and well nourished Orientation: alert and awake HENTN Head: normal to inspection Mouth: moist mucous membranes Eyes General: appearance normal, both eyes and all related structures Neck Neck: normal visual inspection, full ROM, no lymphadenopathy and no meningeal signs Resp Effort & Inspection: normal respiratory effort, able to speak in complete sentences and no respiratory distress Auscultation: clear to auscultation bilaterally, no rales, no rhonchi and no wheezes Cardio Rate: tachycardic Rhythm: regular rhythm Heart Sounds: S1 normal and S2 normal GI Inspection: normal to inspection Palpation: soft, no hepatosplenomegaly, no masses, not rigid and nontender Percussion: normal to percussion Auscultation: normal bowel sounds Back/Spine/Pelvis Back: no CVA tenderness Skin General skin exam: no rashes or lesions noted Trauma: no lacerations or abrasions Neuro General: patient alert and patient awake Cognition: normal cognition Speech: speech normal Gait: normal gait Psych Appearance: grossly normal and well kempt Mental Status: mental status grossly normal Speech and Movement: speech and movement normal Mood: anxious mood Affect: anxious affect Attitude: cooperative Thought Process: flight of ideas Insight: fair Judgment: fair Course <BYRON Fernandes - Last Filed: 11/29/20 08:06> Vital Signs Vital signs: Vital Signs Temperature 36.6 C 11/27/20 22:12 Pulse 114 H 11/27/20 22:12 Respiratory Rate 20 11/27/20 22:12 Blood Pressure 175/95 H 11/27/20 22:12 Pulse Oximetry 96 11/27/20 22:12 Temperature 36.6 C 11/27/20 22:12 Temperature Source Skin 11/27/20 22:12 Pulse 114 H 11/27/20 22:12 Respiratory Rate 20 11/27/20 22:12 Respiratory Effort Non-Labored 11/27/20 22:18 Blood Pressure 175/95 H 11/27/20 22:12 Blood Pressure Position Sitting 11/27/20 22:12 Pulse Oximetry 96 11/27/20 22:12 Oxygen Delivery Method Room Air 11/27/20 22:12 Oxygen Flow Rate 0 11/27/20 22:12 Pain Level 9 11/27/20 22:12 Sign Out <BYRON Fernandes Last Filed: 11/29/20 08:06> Sign Out Data: Sign Out Comment: Patient patient is speaking with manager of disaster recovery currently. Concern for alcohol withdrawals. Recommend inpatient admission. Patient may have suffered a seizure in the car on the way here. Last updated by Marcia Appiah PA at 11/28/20 00:43
[2020-11-27 22:52] LABS: Bilirubin Negative (Negative); Blood Negative (Negative); Clarity Clear (Clear); Glucose Negative (Negative); Ketones Negative (Negative); Leukocyte Esterase Negative (Negative); Nitrite Negative (Negative); Specific Gravity >= 1.030 (1.005-1.025); Urobilinogen 0.2 EU/dL (Up TO 0.2); pH 5.5 (5-8)
[2020-11-27] MEDS: LORazepam 2 MG/ML VIAL 1 MG IVP (22:59)
[2020-11-27 23:00] LABS: Bacteria Negative HPF (Negative); C & S Indicated? No; Casts Negative LPF (Negative); Crystals Negative HPF (Negative); Epithelial Cells Negative HPF (Negative); Mucus Negative (Negative); RBC Negative HPF (0-2); WBC Negative HPF (0-5)
[2020-11-27] MEDS: Ondansetron 4 MG/2 ML VIAL IVP (23:00)
[2020-11-27] MEDS: Normal Saline 1,000 ML 1000 ML IV (23:00)
[2020-11-27 23:01] LABS: Abs Immature Grans 0.04 10^3/uL (0.0-0.06); Absolute Basophil Count 0.05 10^3/uL (0.0-0.2); Absolute Eosinophil Count 0.11 10^3/uL (0.0-0.7); Absolute Lymphocyte Count 1.37 10^3/uL (1.2-3.4); Absolute Monocyte Count 0.74 10^3/uL (0.1-0.8); Basophils % 0.5; Eosinophils % 1.1; HCT 46.4 % (40.0-50.0); HGB 15.5 g/dL (13.5-17.5); Immature Grans % 0.4; Lymphocytes % 14.3; MCH 29.9 pg (27.0-33.0); MCHC 33.4 % (32.0-36.0); MCV 89.6 fL (80-95); MPV 10.2 fL (8.0-11.0); Monocytes % 7.7; Nucleated RBC 0 %; Platelet Count 249 10^3/uL (130-400); RBC 5.18 10^6/uL (4.36-5.78); RDW 13.2 % (11.8-14.1); RDW-SD 43.6 fL; WBC 9.61 10^3/uL (4.4-10.8)
[2020-11-27 23:14] LABS: ALT 56 U/L (16-63); AST 32 U/L (15-37); Albumin 3.9 g/dL (3.4-5.0); Alkaline Phosphatase 76 U/L (46-116); Anion Gap 8.6 mmol/L (3-11); BUN 6 mg/dL (7-18); Bilirubin, Total 0.6 mg/dL (0.2-1.0); CO2 28.4 mmol/L (21.0-32.0); CREATININE 1.1 mg/dL (0.70-1.30); Calcium 8.8 mg/dL (8.5-10.1); Chloride 104 mmol/L (98-107); Glucose 174 mg/dL (74-106); Lipase 94 U/L (73-393); Magnesium 2.1 mg/dL (1.8-2.4); Potassium 3.7 mmol/L (3.5-5.1); Sodium 141 mmol/L (136-145); Total Protein 7.9 g/dL (6.4-8.2)
[2020-11-27 23:15] LABS: ETHANOL BLOOD < 3.0 mg/dL (<3)
[2020-11-27 23:18] LABS: *AMPHETAMINES SCREEN URINE Positive (Negative); *BARBITURATES SCREEN URINE Negative (Negative); *BENZODIAZEPINES SCREEN URINE Negative (Negative); Cannabinoids THC Positive (Negative); Cocaine Screen,Urine Negative (Negative); METHADONE URINE SCREEN Negative (Negative); OPIATES URINE SCREEN Negative (Negative); Tricyclic Antidepressants Negative (Negative)
[2020-11-27] MEDS: Benzocaine 20% Gel 30 GM JAR MM (23:25)
[2020-11-27] MEDS: Clindamycin 150 MG CAP 450 MG PO (23:30)
[2020-11-28] VITALS (8 sets, daily range): BP systolic 133–156; BP diastolic 78–99; PULSE 85–102; RESP 11–20; O2SAT 96–98
== END 2020-11-28 01:31 | disposition left against medical advice (07) ==
PROVIDERS: Physician Assistant; Emergency Provider Student in an Organized Health Care Education/Training Program; PCP Family Medicine
DX: F10.10 Alcohol abuse, uncomplicated (principal); K92.0 Hematemesis; Z53.29 Procedure and treatment not carried out because of patient's decision for other reasons; I10 Essential (primary) hypertension
CPT/HCPCS: 36415; 80053; 80307; 83690; 93005; 96361; 96374; 96375; 99284; 80320; 81003; 81015; 83735; 85025; 93010; J2060; J2405

== ENCOUNTER 2021-05-23 21:53 | Emergency (ER) | payer MEDICAID, SELFPAY ==
[2021-05-23] VITALS (18 sets, daily range): BP systolic 102–169; BP diastolic 84–118; PULSE 91–127; RESP 10–29; TEMP 36.8; O2SAT 88–100
--- NOTE | 2021-05-23 22:00 | RT.EKG_ITS ---
APPROVED REPORT Exam: Resting ECG Reason for Exam: Chest pain Patient Location: E HR:112 bpm ECG Measurements Heart Rate 112 AXIS VT 138 P 61 QRSd 98 QRS 66 QT 329 T 21 QTc 449 Conclusion Sinus tachycardia...rate> 99
--- NOTE | 2021-05-23 22:15 | DI.CT_ITS ---
Exam(s) CT THORAX ABD/PEL CTA EXAM: CT THORAX ABD/PEL CTA CLINICAL HISTORY: chest pain, syncope, tachycardia. TECHNIQUE: Imaging Protocol: Axial CT angiography was performed with multi-slice acquisition and m ulti-planar and/or 3D reconstructions. CONTRAST MATERIAL: Intravenous: Omnipaque 350 Contrast volume:100 ml Oral: no COMPARISON: CT CT ABDOMEN PELVIS W from 03/26/2019 FINDINGS: CHEST: Pulmonary Arteries: No evidence of filling defect to suggest pulmonary emboli. Tracheobronchial tree: Patent where visualized. Mediastinum and Rosi: No dominant adenopathy. Fluid in esophagus, consistent with reflux.. Pulmonary parenchyma: No consolidation or dominant measurable mass. No architectural distortion. Pleura: No effusion or pneumothorax. Heart: The heart is not dilated. No coronary artery calcifications are seen. Aorta: Thoracic aorta non-dilated. Bones: Normal. ABDOMEN AND PELVIS: Abdomen: Celiac axis/mesenteric arteries: No evidence of occlusion or significant stenosis. Renal Arteries: No evidence of occlusion or significant stenosis. There is a single renal artery per fusing each kidney. Aorta: No evidence of occlusion or significant stenosis. No aneurysm or dissection. Iliac Arteries: No evidence of occlusion or significant stenosis. Common Femoral Arteries: No evidence of occlusion or significant stenosis. ABDOMEN: Liver: Normal density. No measurable mass. Portal, Superior Mesenteric, and Splenic Veins: Unremarkable. Gallbladder and Biliary Tract: No radiodense calculus or dilation. Pancreas: Normal density, no abnormal calcifications or inflammatory process. Spleen: Normal. Adrenals: No masses seen. Kidneys: Normal size, contour and axis. No radiodense stones or obstructive uropathy. No masses seen. Bowel: Fluid-filled distended stomach. No small bowel obstruction or bowel wall thickening. Appendix is unremarkable. Normal quantity of stool. Peritoneal Cavity: No ascites, collection or mesenteric inflammatory response. Lymph Nodes: Within normal limits. Bones: Unremarkable. Soft Tissues: Unremarkable. PELVIS: Bladder: Nearly empty but unremarkable.. Reproductive Organs: Unremarkable as visualized. Lymph Nodes: Within normal limits. Bones: Within normal limits. IMPRESSION: Normal CT Angiogram of the chest, abdomen and pelvis. Fluid-filled stomach. Fluid in the distal esophagus. RADIATION DOSE DELIVERED: 945.13mGy.cm Total DLP DATA REPOSITORY: All CT scans at this facility are submitted to the National Radiology Data Registry (NRDR) Dose Index Registry (DIR) with the [employer] (ACR). RADIATION OPTIMIZATION: All CT scans at this facility use at least one of these dose optimization te chniques: automated exposure control; mA and/or kV adjustment per patient size (includes targeted exa ms where dose is matched to clinical indication); or iterative reconstruction.
[2021-05-23] MEDS: Lactated Ringers 500 ML IV (22:17)
[2021-05-23 22:25] LABS: Abs Immature Grans 0.06 10^3/uL (0.0-0.06); Absolute Basophil Count 0.06 10^3/uL (0.0-0.2); Absolute Eosinophil Count 0.03 10^3/uL (0.0-0.7); Absolute Lymphocyte Count 1.32 10^3/uL (1.2-3.4); Absolute Monocyte Count 0.87 10^3/uL (0.1-0.8); Absolute Neutrophil Count 13.51 10^3/uL (1.2-6.7); Basophils % 0.4; Eosinophils % 0.2; HCT 45.3 % (40.0-50.0); HGB 15.1 g/dL (13.5-17.5); Immature Grans % 0.4; Lymphocytes % 8.3; MCH 29.4 pg (27.0-33.0); MCHC 33.3 % (32.0-36.0); MCV 88.1 fL (80-95); MPV 10.2 fL (8.0-11.0); Monocytes % 5.5; Neutrophils % 85.2; Nucleated RBC 0 %; Platelet Count 256 10^3/uL (130-400); RBC 5.14 10^6/uL (4.36-5.78); RDW 11.9 % (11.8-14.1); RDW-SD 38.3 fL; WBC 15.86 10^3/uL (4.4-10.8)
[2021-05-23] MEDS: LORazepam 2 MG/ML VIAL 0.5 MG IVP (22:33)
[2021-05-23 22:37] LABS: ETHANOL BLOOD < 3.0 mg/dL (<10)
--- NOTE | 2021-05-23 22:40 | ED.GENADUL_ITS ---
Discharge Plan Disposition Patient Disposition: STILL A PATIENT Discharge Details Primary Care Provider: Estuardo Hernandez ED Provider: Quoc Buck Home Meds and New Rx's Prescriptions: No Action lisinopril 5 mg Tablet 5 mg PO DAILY 0RF Label Comments: no longer taking 05/21/2019 Medical Decision Making 1049 --31-year-old male here with chest pain that has been persistent over the past 5 hours after smoking what he thought was marijuana. Patient is hypertensive and tachycardic. He has pain in his central chest that seems to radiate from his chest abdomen into his epigastric area. Consider life-threatening acute aortic dissection. Will obtain stat CTA of the chest abdomen pelvis. Concern for cocaine toxidrome I will give Ativan 0.5 mg IV and initiate IV fluids. Considered ACS. Screening EKG was reviewed and interpreted by me: Sinus tachycardia 112 bpm, normal axis, no STEMI, S1Q3T3 is present, nondiagnostic. HPI General Mode of arrival: ambulatory . Date/Time Provider Initiated Documentation: 05/23/21 21:58 . Limitations to Documentation: no limitations . Information obtained by: patient . HPI Narrative: 31-year-old male with history of hypertension, presents with chief complaint of chest pain. Patient notes that this afternoon around 545 he smoked what he thought was marijuana. Shortly thereafter he started develop chest discomfort and rapid heart rate. Symptoms have persisted. Discomfort is described as a sharp pain located retrosternally and radiating to his lower sternum. Pain is moderate and at times severe. Patient notes that sometime later while he was with his friends he had a brief syncopal episode. History of this episode is limited. Apparently EMS were called and responded and he refused transfer at that time. Patient denies associated shortness of breath but does note that pain somewhat worsens when he takes a deep breath. Related Data Home Medications Medication Instructions Recorded Confirmed lisinopril 5 mg tablet 5 mg PO DAILY 03/26/19 05/23/21 Allergies Allergy/AdvReac Type Severity Reaction Status Date / Time levofloxacin [From Levaquin] Allergy Agitation Unverified 05/23/21 22:44 vanilla Allergy Severe Anaphylaxsi Uncoded 05/23/21 22:44 s bee Allergy Uncoded 05/23/21 22:44 General Stated Complaint: Chest Pain ALESSANDRA: 2 Review of Systems All systems reviewed & are unremarkable except as noted in HPI and below Constitutional Constitutional: Denies fever(s) Cardiovascular Cardiovascular: Reports as per HPI Gastrointestinal Gastrointestinal: Denies vomiting PFSH All Active Problems ETOH abuse (Chronic) No-show for appointment (Acute) Medical History HTN (hypertension) Surgical History No significant past surgical history Social History Smoking/Tobacco Use Status: Current every day Tobacco Type: cigarettes Smoking risk assessment performed?: Yes Alcohol Intake: current Alcohol Intake frequency: a few times a month Drug use: Daily Substance use type: marijuana Do you feel safe at home: Yes Do you feel safe in your relationship?: Yes Exam Const General: cooperative, in distress and anxious Orientation: alert and awake HENMT Mouth: mucous membranes dry Eyes Conjunctivae: conjunctival abnormality bilaterally conjunctival injection (mild) Sclera: normal sclerae Neck Neck: trachea midline and supple Chest Chest: normal inspection of the chest Resp Effort & Inspection: normal respiratory effort Auscultation: clear to auscultation bilaterally, no rales, no rhonchi and no wheezes Cardio Rate: tachycardic Rhythm: regular rhythm Heart Sounds: S1 normal, S2 normal, no gallops, no murmurs and no rubs GI Palpation: soft, not firm, no guarding, no masses, not rigid and nontender Skin Rashes: no rashes Neuro General: patient alert, patient awake, patient oriented x3 and tone normal Extrem General: no edema Psych Appearance: grossly normal Mood: anxious mood Affect: anxious affect Course Vital Signs Vital signs: Vital Signs Temperature 36.8 C 05/23/21 22:03 Pulse 124 H 05/23/21 22:03 Respiratory Rate 16 05/23/21 22:03 Blood Pressure 141/114 H 05/23/21 22:03 Pulse Oximetry 100 05/23/21 22:03 Temperature 36.8 C 05/23/21 22:03 Temperature Source Temporal Artery Scan 05/23/21 22:03 Pulse 124 H 05/23/21 22:03 Respiratory Rate 20 05/23/21 22:08 Respiratory Effort Non-Labored 05/23/21 22:08 Respiratory Depth Normal 03/25/22 22:08 Respiratory Pattern Normal 05/23/21 22:08 Blood Pressure 141/114 H 05/23/21 22:03 Blood Pressure Position Supine 05/23/21 22:03 Pulse Oximetry 100 05/23/21 22:03 Oxygen Delivery Method Room Air 05/23/21 22:03 Oxygen Flow Rate 0 05/23/21 22:03 Pain Level 8 05/23/21 22:08 Lab/Test Results Lab/Test Results: Laboratory Tests Range/Units 05/23/21 05/23/21 22:20 22:20 WBC (4.4-10.8) 10^3/uL 15.86 H RBC (4.36-5.78) 10^6/uL 5.14 Hgb (13.5-17.5) g/dL 15.1 Hct (40.0-50.0) % 45.3 MCV (80-95) fL 88.1 MCH (27.0-33.0) pg 29.4 MCHC (32.0-36.0) % 33.3 RDW (11.8-14.1) % 11.9 Plt Count (130-400) 10^3/uL 256 MPV (8.0-11.0) fL 10.2 Immature Gran % 0.4 Neutrophils % 85.2 Lymphocytes % 8.3 Monocytes % 5.5 Eosinophils % 0.2 Basophils % 0.4 Nucleated RBC % % 0 Absolute Neutrophils (1.2-6.7) 10^3/uL 13.51 H Absolute Lymphocytes (1.2-3.4) 10^3/uL 1.32 Absolute Monocytes (0.1-0.8) 10^3/uL 0.87 H Absolute Eosinophils (0.0-0.7) 10^3/uL 0.03 Absolute Basophils (0.0-0.2) 10^3/uL 0.06 Ethyl Alcohol (<10) mg/dL < 3.0 Critical Care Time Critical Care Time Critical Care Time: Yes Attestation: PAWSS Have you Been Recently Intoxicated or Drunk Within the Last 30 days?: No Have you Ever Experienced Previous Episodes of Alcohol Withdrawal?: No Have you ever Experienced Withdrawal Seizures?: No Have you ever Experienced Delirium Tremens(DT)s?: No Have you ever undergone Alcohol Rehabilitation Treatment (i.e, inpt ot outpatient treatment programs)?: No Have you ever Experienced Blackouts?: No Have you ever Combined Alcohol with other Downers within the last 90 days?: No Have you ever Combined Alcohol with any other Substance of Abuse during the last 90 days?: No Positive Blood Alcohol level on Presentation? [PCS.BAL]: No Evidence of Increased Autonomic Activity (i.e. HR>120, tremor, sweating, agitat ion, nausea)?: No Result: 0
[2021-05-23 22:45] LABS: ALT 104 U/L (16-63); AST 52 U/L (15-37); Albumin 4.5 g/dL (3.4-5.0); Alkaline Phosphatase 66 U/L (46-116); Anion Gap 9.6 mmol/L (3-11); BUN 9 mg/dL (7-18); Bilirubin, Total 0.6 mg/dL (0.2-1.0); CO2 26.4 mmol/L (21.0-32.0); Calcium 9.1 mg/dL (8.5-10.1); Chloride 103 mmol/L (98-107); Glucose 125 mg/dL (74-106); Potassium 3.8 mmol/L (3.5-5.1); Sodium 139 mmol/L (136-145); Total Protein 8.3 g/dL (6.4-8.2); Troponin I < 50 ng/L (<or=60)
[2021-05-23 22:46] LABS: *AMPHETAMINES SCREEN URINE Negative (Negative); *BARBITURATES SCREEN URINE Negative (Negative); *BENZODIAZEPINES SCREEN URINE Negative (Negative); Cannabinoids THC Positive (Negative); Cocaine Screen,Urine Positive (Negative); METHADONE URINE SCREEN Negative (Negative); OPIATES URINE SCREEN Negative (Negative)
[2021-05-23 22:47] LABS: Tricyclic Antidepressants Negative (Negative)
[2021-05-23] MEDS: Omnipaque 350 MG/ML 100 ML BTL IJ (23:59)
[2021-05-24] VITALS: PULSE 122; RESP 18
[2021-05-24 00:10] VITALS: PULSE 126; RESP 25; O2SAT 94
[2021-05-24 00:20] VITALS: PULSE 115; RESP 32; O2SAT 95
[2021-05-24 00:35] VITALS: PULSE 115; RESP 32; TEMP 36.8; O2SAT 95
[2021-05-24 00:52] LABS: Troponin I < 50 ng/L (<or=60)
--- NOTE | 2021-05-24 01:33 | DI.VRAD_ITS ---
PROCEDURE INFORMATION: Exam: CTA Chest With Contrast Exam date and time: 05/23/2021 11:39 PM Age: 31 years old Clinical indication: Other: Syncope, tachycardia; Chest pressure and chest wall pain; Additional info: Chest pain, syncope, tachycardia TECHNIQUE: Imaging protocol: Computed tomographic angiography of the chest with contrast. 3D rendering (Not supervised by radiologist): MIP and/or 3D reconstructed images were created by the technologist. Radiation optimization: All CT scans at this facility use at least one of these dose optimization techniques: automated exposure control; mA and/or kV adjustment per patient size (includes targeted exams where dose is matched to clinical indication); or iterative reconstruction. Contrast material: OMNI 350; Contrast volume: 100 ml; Contrast route: INTRAVENOUS (IV); COMPARISON: 1. CT THORAX ABD/PEL CTA 05/23/2021 10:[address] ABDOMEN PELVIS W 03/26/2019 6:33 PM FINDINGS: Pulmonary arteries: The pulmonary arteries are normal in caliber. No evidence of acute pulmonary embolism. Aorta: The aorta is normal without evidence of aneurysmal dilatation, dissection or occlusive disease. Lungs: There is no evidence of focal pulmonary consolidation. No evidence of pulmonary parenchymal inflammatory changes. There is no evidence of pulmonary masses. Pleural spaces: There is no evidence of pneumothorax. There are no pleural effusions present. Heart: The cardiac structures are normal. The right ventricular to left ventricular ratio is approximately 0.85 Mediastinal space: Fluid is seen within the esophagus consistent with gastroesophageal reflux. Lymph nodes: There is no evidence of lymphadenopathy. Bones/joints: The spine, sternum, ribs, and pectoral girdles show no evidence of acute abnormality. Soft tissues: There are no soft tissue masses or fluid collections. Other findings: The mediastinal structures are normal. The upper abdominal viscera are unremarkable. IMPRESSION: 1. No evidence of acute pulmonary embolism. 2. No evidence of acute cardiovascular abnormalities. 3. Gastroesophageal reflux. PROCEDURE INFORMATION: Exam: CTA Abdomen and Pelvis With Contrast Exam date and time: 05/23/2021 11:39 PM Age: 31 years old Clinical indication: Other: Syncope, tachycardia; Chest pressure and chest wall pain; Additional info: Chest pain, syncope, tachycardia TECHNIQUE: Imaging protocol: Computed tomographic angiography of the abdomen and pelvis with contrast material. 3D rendering (Not supervised by radiologist): MIP and/or 3D reconstructed images were created by the technologist. Radiation optimization: All CT scans at this facility use at least one of these dose optimization techniques: automated exposure control; mA and/or kV adjustment per patient size (includes targeted exams where dose is matched to clinical indication); or iterative reconstruction. Contrast material: OMNI 350; Contrast volume: 100 ml; Contrast route: INTRAVENOUS (IV); COMPARISON: 1. CT THORAX ABD/PEL CTA 05/23/2021 10:[address] ABDOMEN PELVIS W 03/26/2019 6:33 PM FINDINGS: Lungs: The lungs are normal. There is no evidence of focal pulmonary consolidation. Pleural spaces: There are no pleural effusions present. Heart: The cardiac structures are normal. There is no evidence of pneumothorax. Aorta: The abdominal aorta is widely patent without evidence of significant occlusive or aneurysmal disease. The aorta is normal without evidence of significant atherosclerosis or aneurysmal disease. The peripheral arterial vascular system visualized is unremarkable. The portal venous system visualized is unremarkable. The venous system visualized is unremarkable. Celiac trunk and mesenteric arteries: The celiac artery is widely patent without evidence of occlusive or aneurysmal disease. Superior mesenteric artery is widely patent without evidence of occlusive or aneurysmal disease.The inferior mesenteric artery is widely patent without evidence of occlusive or aneurysmal disease. Renal arteries: Single renal artery supplies the right kidney, is widely patent, without evidence of significant occlusive or aneurysmal disease. Single renal artery supplies the left kidney, is widely patent, without evidence of significant occlusive or aneurysmal disease. Right iliac arteries: The right common iliac artery, right internal iliac artery and right external iliac arteries are widely patent without evidence of significant occlusive or aneurysmal disease. Right femoral/popliteal arteries: The right common femoral artery is widely patent without evidence of significant occlusive or aneurysmal disease. The proximal right deep and superficial femoral arteries are widely patent without evidence of significant occlusive or aneurysmal disease. Left iliac arteries: The left common iliac artery, left internal iliac artery and left external iliac arteries are widely patent without evidence of significant occlusive or aneurysmal disease. Left femoral/popliteal arteries: The left common femoral artery is widely patent without evidence of significant occlusive or aneurysmal disease. The proximal left deep and superficial femoral arteries are widely patent without evidence of significant occlusive or aneurysmal disease. Liver: There are no focal liver lesions present. There is no evidence of intrahepatic or extrahepatic biliary ductal dilation. Gallbladder and bile ducts: The gallbladder is normal. There is no cholelitiasis, wall thickening or pericholecystic fluid to suggest cholecystitis. Pancreas: The pancreas is normal. Spleen: The spleen is normal. Adrenal glands: The adrenal glands are normal. Kidneys and ureters: The kidneys are normal. Stomach and bowel: There is no evidence of intestinal obstruction. No diverticulosis is present. Appendix: A normal appendix is identified. There is no evidence of distention or periappendiceal inflammation to suggest appendicitis. Intraperitoneal space: There is no free intraperitoneal air. There is no evidence of free intraperitoneal or pelvic fluid. There are no soft tissue masses or fluid collections. Lymph nodes: There is no evidence of lymphadenopathy. Urinary bladder: The bladder is normal. Reproductive: The prostate is normal. Bones/joints: The skeletal structures and soft tissues show no evidence of fracture or other acute processes. Soft tissues: The extra-abdominal soft tissues are normal. There are nonobstructing bilateral inguinal hernias containing fat and possibly a small amount of mesentery. IMPRESSION: 1. No acute intra-abdominal process. 2. No evidence of aortic dissection or aneurysmal dilatation. Dictated and Authenticated by: Christiano Hay MD. Ordering:RAFIQ Kumari MD
--- NOTE | 2021-05-24 01:38 | W.EDPROG ---
Date of service: 05/24/21 Time of Service: 01:40 Medical Decision Making Resting comfortably no acute distress labs and imaging normal. Patient stable for discharge will follow up with primary care doctor. Sign Out Sign Out Data: Sign Out Comment: 31-year-old male here with chest pain, hypertensive and tachycardic. UDS positive for cocaine. Patient has received Ativan 0.5 mg IV. Labs and imaging pending at time of signout. Plan follow-up labs and CTA and reassess patient for disposition. Last updated by Quoc Buck MD at 05/23/21 22:58 Discharge Plan Disposition Patient Disposition: HOME Condition: Improving Discharge Details Clinical Impression: Chest pain Primary Care Provider: Estuardo Hernandez ED Provider: Tomasz Sureo Home Meds and New Rx's Prescriptions: No Action lisinopril 5 mg Tablet 5 mg PO DAILY 0RF Label Comments: no longer taking 05/21/2019 Discharge Instructions Instructions: Chest Pain (ED) Additional Instructions: Please be seen by your primary care physician. Please return to the emergency department you have any worsening symptoms such as worsening chest pain shortness of breath or other abnormal symptomatology.
== END 2021-05-24 01:43 | disposition home or self-care (01) ==
PROVIDERS: Student in an Organized Health Care Education/Training Program; Emergency Provider Emergency Medicine; PCP Family Medicine
DX: R07.9 Chest pain, unspecified (principal); R55 Syncope and collapse; R00.0 Tachycardia, unspecified; I10 Essential (primary) hypertension; F14.10 Cocaine abuse, uncomplicated
CPT/HCPCS: 71275; 74177; 80053; 80307; 93005; 96361; 96374; 99285; 80320; 84484; 85025; 93010; 99284; J2060; J3490

== ENCOUNTER 2021-06-30 17:25 | Emergency (ER) | payer MEDICAID, SELFPAY ==
[2021-06-30] VITALS (31 sets, daily range): BP systolic 136–175; BP diastolic 80–136; PULSE 78–106; RESP 8–23; TEMP 37.1; O2SAT 94–98
--- NOTE | 2021-06-30 17:34 | W.ED.GENAD ---
Discharge Plan Disposition Patient Disposition: HOME Condition: Improving Discharge Details Clinical Impression: Left flank pain, Chest pain Primary Care Provider: Estuardo Hernandez ED Provider: Alex Bosch Home Meds and New Rx's Prescriptions: Continued lisinopril 5 mg Tablet 5 mg PO DAILY 0RF Label Comments: no longer taking 05/21/2019 Discharge Instructions Instructions: Chest Pain (ED), Flank Pain (ED) Additional Instructions: Work-up in the ER does not reveal any obvious emergent process. Please watch for new or worsening symptoms and return to the ER for any concerns. I would like you to reach out to your primary care provider tomorrow to discuss your ER visit, ongoing symptoms, need for outpatient reevaluation. I would also like you to continue monitoring your blood pressure at home under the same circumstances and then take this log of numbers to your primary care provider to decide if you will begin taking lisinopril once again. Given your talk screen was positive for cocaine, and you had some chest pain tonight, I also recommend talking with your primary care provider tomorrow about an outpatient stress test for further evaluation. Discharge Data Discharge Date/Time-TO BE ENTERED AT DEPARTURE: 06/30/21 22:28 Medical Decision Making This is a 31-year-old male, reports past medical history of hypertension but has not been taking his medications for several months because he is making positive lifestyle changes, history of drug abuse but reports that he has been clean for many years although when he has a strong urge he takes Suboxone to deter himself from using drugs. He is presenting to the ER today stating that he has a very physical job, and noticed some left lower back pain while at work, cannot recall an exact injury. He states that subsequently he went to urinate and question if there could be blood in his urine, is concerned about kidney stones, reports that his father has kidney stones. Patient has no history of kidney stones, has not taken medication prior to arrival, denies any groin or scrotal pain, penile discharge or dysuria. He appears anxious otherwise unremarkable examination. Plan is to obtain IV access, give IV fluid, Toradol, obtain routine screening laboratory values and obtain a renal colic CT. Patient initially presented anxious, hypertensive, but blood pressure trended down nicely with observation. CBC, CMP and a urinalysis essentially unremarkable. CT imaging renal colic read as negative per radiology. Upon reevaluation patient reports that his back pain has improved moderately but there is still a dull ache. He states the pain is worse with movement. He has been on his phone both his employer and his significant other, he states is causing him stress, anxiety, and he is currently developed chest pain and/or pressure. He denies any difficulty breathing. Patient feels as though this is anxiety but is concerned given his presentation of anterior chest pressure. Discussed options, plan is to obtain a cardiac work-up, D-dimer, chest x-ray, and will add on a tox screen. Upon reevaluation patient is standing up meditating and doing breathing exercises. He reports that his symptoms are improving but have not resolved completely. Upon reevaluation he is now eating a sports bar Initial troponin less than 50, D-dimer unremarkable at 84. Will not pursue CTA of the chest. Chest x-ray was negative. Tox screen is positive for cocaine and THC. Patient adamantly denies any drug use but does report that he wonders if his marijuana could have been laced. At this time he is chest pain-free, hemodynamically stable, agreeable to await a delta troponin. Delta troponin is less than 50. Upon reevaluation he reports no chest pain and only mild dull ache of his left lower back that does not radiate. While his presentation was initially for a left lower back pain and the question of hematuria although he had no hematuria here in the ER he subsequently became far more anxious and developed chest pressure. While I believe the chest pressure was secondary to anxiety, given his talk screen is positive for cocaine, will treat this as potential cocaine induced chest pain. We discussed the importance of outpatient follow-up through his primary care provider whom he plans to call tomorrow and with that being said we discussed the importance of outpatient cardiac work-up including stress test and echocardiogram. Standard discharge and return precautions were provided. Patient understands, is agreeable to this plan, and has no additional questions or concerns upon discharge. This documentation was generated using [employer] system, please disregard any oddities of phrase or misspellings. Medical Records Medical records reviewed: Yes I reviewed the patient's medical records. Imaging Data Radiologic Study: Attestation: I personally reviewed and interpreted this imaging study as follows: Imaging: X-Ray Radiologist's impression: PROCEDURE INFORMATION: Exam: CT Abdomen And Pelvis Without Contrast Exam date and time: 06/30/2021 6:23 PM Age: 31 years old Clinical indication: Abdominal pain; Other: Back pain, pain when urinating; Additional info: Best images obtained, patient unable to follow instrutction due to high anxiety. TECHNIQUE: Imaging protocol: Computed tomography of the abdomen and pelvis without contrast. Radiation optimization: All CT scans at this facility use at least one of these dose optimization techniques: automated exposure control; mA and/or kV adjustment per patient size (includes targeted exams where dose is matched to clinical indication); or iterative reconstruction. COMPARISON: CT THORAX ABD/PEL CTA 05/23/2021 11:39 PM FINDINGS: Liver: Normal. No mass. Gallbladder and bile ducts: Normal. No calcified stones. No ductal dilation. Pancreas: Normal. No ductal dilation. Spleen: Normal. No splenomegaly. Adrenal glands: Normal. No mass. Kidneys and ureters: Normal. No hydronephrosis. Stomach and bowel: Unremarkable. No obstruction. No mucosal thickening. Appendix: No evidence of appendicitis. Intraperitoneal space: Unremarkable. No free air. No significant fluid collection. Vasculature: Unremarkable. No abdominal aortic aneurysm. Lymph nodes: Unremarkable. No enlarged lymph nodes. Urinary bladder: Unremarkable as visualized. Reproductive: Unremarkable as visualized. Bones/joints: Unremarkable. No acute fracture.Soft tissues: Unremarkable. Other findings: Motion artifact degrades images IMPRESSION: No acute process Radiologic Study #2: Attestation: I personally reviewed and interpreted this imaging study as follows: Imaging: X-Ray Radiologist's impression: PROCEDURE INFORMATION: Exam: XR Chest Exam date and time: 06/30/2021 7:43 PM Age: 31 years old Clinical indication: Other: General chest pain TECHNIQUE: Imaging protocol: XR of the chest. Views: 2 views. COMPARISON: CT THORAX ABD/PEL CTA 05/23/2021 11:39 PM FINDINGS: Lungs: Unremarkable. No consolidation. Pleural spaces: Unremarkable. No pleural effusion. No pneumothorax. Heart/Mediastinum: Unremarkable. No cardiomegaly. Bones/joints: Unremarkable. IMPRESSION: No acute findings. Lab Data Lab results reviewed: Yes I reviewed the patient's lab results. Labs: Laboratory Tests Range/Units 06/30/21 06/30/21 06/30/21 18:01 18:01 18:01 WBC (4.4-10.8) 10^3/uL 10.62 RBC (4.36-5.78) 10^6/uL 5.25 Hgb (13.5-17.5) g/dL 15.8 Hct (40.0-50.0) % 45.6 MCV (80-95) fL 87 MCH (27.0-33.0) pg 30.1 MCHC (32.0-36.0) % 34.6 RDW (11.8-14.1) % 11.9 Plt Count (130-400) 10^3/uL 237 MPV (8.0-11.0) fL 10.3 Immature Gran % 0.4 Neutrophils % 76.0 Lymphocytes % 16.2 Monocytes % 6.1 Eosinophils % 0.7 Basophils % 0.6 Nucleated RBC % (0.0-0.3) % 0.0 Absolute Neutrophils (1.2-6.7) 10^3/uL 8.08 H Absolute Lymphocytes (1.2-3.4) 10^3/uL 1.72 Absolute Monocytes (0.1-0.8) 10^3/uL 0.65 Absolute Eosinophils (0.0-0.7) 10^3/uL 0.07 Absolute Basophils (0.0-0.2) 10^3/uL 0.06 PT (9.3-11.0) sec INR (0.9-1.1) APTT (21.0-27.5) sec D-Dimer (<500) ng/mlFEU Sodium (136-145) mmol/L 139 Potassium (3.5-5.1) mmol/L 4.2 Chloride (98-107) mmol/L 103 Carbon Dioxide (21.0-32.0) mmol/L 26.7 Anion Gap (3-11) mmol/L 9.3 BUN (7-18) mg/dL 8 Creatinine (0.70-1.30) mg/dL 1.0 Estimated GFR/1.73 m2 (mL/min/1.73m2) >= 60.00 Glucose (74-106) mg/dL 130 H Calcium (8.5-10.1) mg/dL 9.1 Magnesium (1.8-2.4) mg/dL Total Bilirubin (0.2-1.0) mg/dL 0.8 AST (15-37) U/L 51 H ALT (16-63) U/L 102 H Alkaline Phosphatase (46-116) U/L 79 Troponin I (<or=60) ng/L Total Protein (6.4-8.2) g/dL 8.7 H Albumin (3.4-5.0) g/dL 4.6 Urine Color (Yellow) Yellow Urine Clarity (Clear) Clear Urine pH (5-8) 5.5 Ur Specific [place] (1.005-1.025) >= 1.030 H Urine Protein (Negative) mg/dL Negative Urine Ketones (Negative) mg/dL Negative Urine Blood (Negative) Negative Urine Nitrite (Negative) Negative Urine Bilirubin (Negative) Negative Urine Urobilinogen (Up TO 0.2) EU/dL 0.2 Ur Leukocyte Esterase (Negative) Negative Urine Glucose (Negative) mg/dL Negative Urine Opiates Screen (Negative) Urine Methadone Screen (Negative) Ur Barbiturates Screen (Negative) Ur Tricyclics Screen (Negative) Ur Amphetamines Screen (Negative) U Benzodiazepines Scrn (Negative) Urine Cocaine Screen (Negative) Ur THC Screen (Negative) COVID-19 Source SARS-CoV-2 (PCR) (Negative) Range/Units 06/30/21 06/30/21 06/30/21 19:27 19:27 19:27 WBC (4.4-10.8) 10^3/uL RBC (4.36-5.78) 10^6/uL Hgb (13.5-17.5) g/dL Hct (40.0-50.0) % MCV (80-95) fL MCH (27.0-33.0) pg MCHC (32.0-36.0) % RDW (11.8-14.1) % Plt Count (130-400) 10^3/uL MPV (8.0-11.0) fL Immature Gran % Neutrophils % Lymphocytes % Monocytes % Eosinophils % Basophils % Nucleated RBC % (0.0-0.3) % Absolute Neutrophils (1.2-6.7) 10^3/uL Absolute Lymphocytes (1.2-3.4) 10^3/uL Absolute Monocytes (0.1-0.8) 10^3/uL Absolute Eosinophils (0.0-0.7) 10^3/uL Absolute Basophils (0.0-0.2) 10^3/uL PT (9.3-11.0) sec 11.2 H INR (0.9-1.1) 1.1 APTT (21.0-27.5) sec 26.2 D-Dimer (<500) ng/mlFEU 84 Sodium (136-145) mmol/L Potassium (3.5-5.1) mmol/L Chloride (98-107) mmol/L Carbon Dioxide (21.0-32.0) mmol/L Anion Gap (3-11) mmol/L BUN (7-18) mg/dL Creatinine (0.70-1.30) mg/dL Estimated GFR/1.73 m2 (mL/min/1.73m2) Glucose (74-106) mg/dL Calcium (8.5-10.1) mg/dL Magnesium (1.8-2.4) mg/dL 2.0 Total Bilirubin (0.2-1.0) mg/dL AST (15-37) U/L ALT (16-63) U/L Alkaline Phosphatase (46-116) U/L Troponin I (<or=60) ng/L < 50 Total Protein (6.4-8.2) g/dL Albumin (3.4-5.0) g/dL Urine Color (Yellow) Urine Clarity (Clear) Urine pH (5-8) Ur Specific [place] (1.005-1.025) Urine Protein (Negative) mg/dL Urine Ketones (Negative) mg/dL Urine Blood (Negative) Urine Nitrite (Negative) Urine Bilirubin (Negative) Urine Urobilinogen (Up TO 0.2) EU/dL Ur Leukocyte Esterase (Negative) Urine Glucose (Negative) mg/dL Urine Opiates Screen (Negative) Urine Methadone Screen (Negative) Ur Barbiturates Screen (Negative) Ur Tricyclics Screen (Negative) Ur Amphetamines Screen (Negative) U Benzodiazepines Scrn (Negative) Urine Cocaine Screen (Negative) Ur THC Screen (Negative) COVID-19 Source Nasal/Nares SARS-CoV-2 (PCR) (Negative) Negative Range/Units 06/30/21 06/30/21 21:49 21:53 WBC (4.4-10.8) 10^3/uL RBC (4.36-5.78) 10^6/uL Hgb (13.5-17.5) g/dL Hct (40.0-50.0) % MCV (80-95) fL MCH (27.0-33.0) pg MCHC (32.0-36.0) % RDW (11.8-14.1) % Plt Count (130-400) 10^3/uL MPV (8.0-11.0) fL Immature Gran % Neutrophils % Lymphocytes % Monocytes % Eosinophils % Basophils % Nucleated RBC % (0.0-0.3) % Absolute Neutrophils (1.2-6.7) 10^3/uL Absolute Lymphocytes (1.2-3.4) 10^3/uL Absolute Monocytes (0.1-0.8) 10^3/uL Absolute Eosinophils (0.0-0.7) 10^3/uL Absolute Basophils (0.0-0.2) 10^3/uL PT (9.3-11.0) sec INR (0.9-1.1) APTT (21.0-27.5) sec D-Dimer (<500) ng/mlFEU Sodium (136-145) mmol/L Potassium (3.5-5.1) mmol/L Chloride (98-107) mmol/L Carbon Dioxide (21.0-32.0) mmol/L Anion Gap (3-11) mmol/L BUN (7-18) mg/dL Creatinine (0.70-1.30) mg/dL Estimated GFR/1.73 m2 (mL/min/1.73m2) Glucose (74-106) mg/dL Calcium (8.5-10.1) mg/dL Magnesium (1.8-2.4) mg/dL Total Bilirubin (0.2-1.0) mg/dL AST (15-37) U/L ALT (16-63) U/L Alkaline Phosphatase (46-116) U/L Troponin I (<or=60) ng/L < 50 Total Protein (6.4-8.2) g/dL Albumin (3.4-5.0) g/dL Urine Color (Yellow) Urine Clarity (Clear) Urine pH (5-8) Ur Specific [place] (1.005-1.025) Urine Protein (Negative) mg/dL Urine Ketones (Negative) mg/dL Urine Blood (Negative) Urine Nitrite (Negative) Urine Bilirubin (Negative) Urine Urobilinogen (Up TO 0.2) EU/dL Ur Leukocyte Esterase (Negative) Urine Glucose (Negative) mg/dL Urine Opiates Screen (Negative) Negative Urine Methadone Screen (Negative) Negative Ur Barbiturates Screen (Negative) Negative Ur Tricyclics Screen (Negative) Negative Ur Amphetamines Screen (Negative) Negative U Benzodiazepines Scrn (Negative) Negative Urine Cocaine Screen (Negative) Positive A Ur THC Screen (Negative) Positive A COVID-19 Source SARS-CoV-2 (PCR) (Negative) ECG Data Attestation: I personally reviewed and interpreted this ECG (s) as follows: Interpretation: Official report by Dr. Grant. Sinus rhythm, ventricular rate of 85. ST elevation likely early repolarization pattern HPI General Mode of arrival: ambulatory. Date/Time Provider Initiated Documentation: 06/30/21 17:34. Limitations to Documentation: no limitations. Information obtained by: patient. History of Present Illness 31 year old M presents to the emergency department with the chief complaint of L flank pain, described as severe, with intensity rated at 8. Quality is described as sharp, and is localized to the abdomen and left. Patient flank. Patient started experiencing this hour(s) (6) and it has been constant. improves with No relieving factors improve symptom(s), No exacerbating factors reported . Patient notes nausea/vomiting and other (hematuria). Patient did receive the following treatments prior to arrival, NSAID Related Data Home Medications Medication Instructions Recorded Confirmed lisinopril 5 mg tablet 5 mg PO DAILY 03/26/19 05/23/21 Allergies Allergy/AdvReac Type Severity Reaction Status Date / Time levofloxacin [From Levaquin] Allergy Agitation Unverified 05/23/21 22:44 vanilla Allergy Severe Anaphylaxsi Uncoded 05/23/21 22:44 s bee Allergy Uncoded 05/23/21 22:44 General ALESSANDRA: 2 Review of Systems Constitutional Constitutional: Denies fever(s) Cardiovascular Cardiovascular: Denies chest pain and Denies dyspnea Respiratory Respiratory: Denies dyspnea Gastrointestinal Gastrointestinal: Reports abdominal pain (L flank), Reports nausea and Reports vomiting Genitourinary Genitourinary: Reports hematuria, Denies penile discharge, Denies testicular pain and Reports urinary hesitancy Musculoskeletal Musculoskeletal: Reports back pain Integumentary/Breasts Skin/Breast: Denies rash PFSH All Active Problems (Updated 06/30/21 @ 22:19 by BYRON Ghotra) ETOH abuse (Chronic) Left flank pain (Acute) Chest pain (Acute) No-show for appointment (Acute) Medical History HTN (hypertension) Surgical History No significant past surgical history Social History Smoking/Tobacco Use Status: Current every day Tobacco Type: cigarettes Smoking risk assessment performed?: Yes Alcohol Intake: current Alcohol Intake frequency: a few times a month Drug use: Occasionally Substance use type: marijuana Do you feel safe at home: Yes Do you feel safe in your relationship?: Yes Exam Const General: cooperative, healthy appearing, comfortable, no acute distress and anxious Orientation: alert, awake and oriented x3 HENMT Head: normal to inspection, normocephalic and atraumatic Face and sinus: normal facial exam Mouth: moist mucous membranes Eyes General: appearance normal, both eyes and all related structures Conjunctivae: conjunctivae normal Neck Neck: normal visual inspection, full ROM, trachea midline, supple and nontender Resp Effort & Inspection: normal respiratory effort and able to speak in complete sentences Auscultation: clear to auscultation bilaterally Cardio Rate: regular rate Rhythm: regular rhythm GI Inspection: normal to inspection Palpation: soft, not firm, no guarding, no pulsatile masses and nontender Auscultation: normal bowel sounds Back/Spine/Pelvis Back: no CVA tenderness and back tenderness (Diffuse, mild left lumbar) Skin General skin exam: no rashes or lesions noted Neuro General: patient alert, patient awake, moves all extremities and no focal motor deficits Cognition: normal cognition Speech: speech normal Gait: normal gait Sensory Exam: no sensory deficits noted Extrem General: normal to inspection, full ROM, capillary refill normal, no pedal edema and no calf tenderness Psych Appearance: grossly normal Mental Status: mental status grossly normal
[2021-06-30] MEDS: Normal Saline 1,000 ML 1000 ML IV (17:59)
[2021-06-30] MEDS: Ketorolac 30 MG/ML VIAL IVP (18:00)
[2021-06-30 18:08] LABS: Abs Immature Grans 0.04 10^3/uL (0.0-0.06); Absolute Basophil Count 0.06 10^3/uL (0.0-0.2); Absolute Eosinophil Count 0.07 10^3/uL (0.0-0.7); Absolute Lymphocyte Count 1.72 10^3/uL (1.2-3.4); Absolute Monocyte Count 0.65 10^3/uL (0.1-0.8); Absolute Neutrophil Count 8.08 10^3/uL (1.2-6.7); Basophils % 0.6; Eosinophils % 0.7; HCT 45.6 % (40.0-50.0); HGB 15.8 g/dL (13.5-17.5); Immature Grans % 0.4; Lymphocytes % 16.2; MCH 30.1 pg (27.0-33.0); MCHC 34.6 % (32.0-36.0); MCV 87 fL (80-95); MPV 10.3 fL (8.0-11.0); Monocytes % 6.1; Platelet Count 237 10^3/uL (130-400); RBC 5.25 10^6/uL (4.36-5.78); RDW 11.9 % (11.8-14.1); WBC 10.62 10^3/uL (4.4-10.8)
[2021-06-30 18:10] LABS: Bilirubin Negative (Negative); Blood Negative (Negative); Clarity Clear (Clear); Glucose Negative (Negative); Ketones Negative (Negative); Leukocyte Esterase Negative (Negative); Nitrite Negative (Negative); Specific Gravity >= 1.030 (1.005-1.025); Urobilinogen 0.2 EU/dL (Up TO 0.2); pH 5.5 (5-8)
--- NOTE | 2021-06-30 18:25 | DI.CT_ITS ---
Exam(s) CT RENAL COLIC WO EXAM: CT RENAL COLIC WO CLINICAL HISTORY: L flank pain/hematuria. TECHNIQUE: Imaging Protocol: Axial computed tomography images with coronal and sagittal reformatted images were created and reviewed CONTRAST MATERIAL: Intravenous: none Oral: None COMPARISON: CT CT THORAX ABD/PEL CTA from 05/23/2021 FINDINGS: VISUALIZED LUNG BASES: No nodules nor pleural effusions evident. ABDOMEN: Images somewhat degraded by motion artifact. There is no ascites. LIVER: There are no obvious focal hepatic lesions evident of this noninfused study. GALLBLADDER/BILIARY: No obvious gallbladder pathology. CBD is not dilated. PANCREAS: No evidence of pancreatic mass nor dilatation of the pancreatic duct. SPLEEN: Spleen is not enlarged. No obvious intrasplenic lesions. ADRENALS: There are no significant adrenal masses. KIDNEYS:No cysts evident. No solid renal masses. No calculi nor hydronephrosis. . ABDOMINAL AORTA: Abdominal aorta is not enlarged. LYMPH NODES: There is no retroperitoneal nor paraaortic adenopathy. ABDOMINAL WALL: No evidence of significant anterior abdominal wall nor inguinal hernia. GI: There is no evidence of bowel obstruction, free air, nor abscess. PELVIS: LYMPH NODES: There is no intrapelvic nor inguinal adenopathy. GI: No evidence of appendicitis.No evidence of sigmoid diverticulitis. URINARY BLADDER: No calculi nor obvious masses evident. Multiple calcified phleboliths are noted in lower pelvis bilaterally REPRODUCTIVE: Unremarkable OSSEOUS: No significant osseous lesions. IMPRESSION: 1. No evidence of radiopaque calculi in the renal collecting systems. No hydronephrosis. 2. No other significant findings in the abdomen pelvis on this noninfused study. 3. RADIATION DOSE DELIVERED: 946.77mGy.cm Total DLP DATA REPOSITORY: All CT scans at this facility are submitted to the National Radiology Data Registry (NRDR) Dose Index Registry (DIR) with the [employer] (A[employer]). RADIATION OPTIMIZATION: All CT scans at this facility use at least one of these dose optimization te chniques: automated exposure control; mA and/or kV adjustment per patient size (includes targeted exa ms where dose is matched to clinical indication); or iterative reconstruction.
[2021-06-30 18:32] LABS: ALT 102 U/L (16-63); AST 51 U/L (15-37); Albumin 4.6 g/dL (3.4-5.0); Alkaline Phosphatase 79 U/L (46-116); Anion Gap 9.3 mmol/L (3-11); BUN 8 mg/dL (7-18); Bilirubin, Total 0.8 mg/dL (0.2-1.0); CO2 26.7 mmol/L (21.0-32.0); Calcium 9.1 mg/dL (8.5-10.1); Chloride 103 mmol/L (98-107); Glucose 130 mg/dL (74-106); Potassium 4.2 mmol/L (3.5-5.1); Sodium 139 mmol/L (136-145); Total Protein 8.7 g/dL (6.4-8.2)
--- NOTE | 2021-06-30 18:59 | DI.VRAD_ITS ---
PROCEDURE INFORMATION: Exam: CT Abdomen And Pelvis Without Contrast Exam date and time: 06/30/2021 6:23 PM Age: 31 years old Clinical indication: Abdominal pain; Other: Back pain, pain when urinating; Additional info: Best images obtained, patient unable to follow instrutction due to high anxiety. TECHNIQUE: Imaging protocol: Computed tomography of the abdomen and pelvis without contrast. Radiation optimization: All CT scans at this facility use at least one of these dose optimization techniques: automated exposure control; mA and/or kV adjustment per patient size (includes targeted exams where dose is matched to clinical indication); or iterative reconstruction. COMPARISON: CT THORAX ABD/PEL CTA 05/23/2021 11:39 PM FINDINGS: Liver: Normal. No mass. Gallbladder and bile ducts: Normal. No calcified stones. No ductal dilation. Pancreas: Normal. No ductal dilation. Spleen: Normal. No splenomegaly. Adrenal glands: Normal. No mass. Kidneys and ureters: Normal. No hydronephrosis. Stomach and bowel: Unremarkable. No obstruction. No mucosal thickening. Appendix: No evidence of appendicitis. Intraperitoneal space: Unremarkable. No free air. No significant fluid collection. Vasculature: Unremarkable. No abdominal aortic aneurysm. Lymph nodes: Unremarkable. No enlarged lymph nodes. Urinary bladder: Unremarkable as visualized. Reproductive: Unremarkable as visualized. Bones/joints: Unremarkable. No acute fracture. Soft tissues: Unremarkable. Other findings: Motion artifact degrades images IMPRESSION: No acute process Dictated and Authenticated by: Shyanne Lara MD. Ordering:GOPAL Johnson MD
--- NOTE | 2021-06-30 19:00 | DI.RAD_ITS ---
Exam(s) XR CHEST 2V PA LATERAL EXAM: XR CHEST 2V PA LATERAL CLINICAL HISTORY: pain. TECHNIQUE: 2D digital imaging was performed. COMPARISON: No exams were available for comparison FINDINGS: 2 views: Heart size is normal. The mediastinum is not widened. Lungs are clear. No infiltrates nor pleural effusions. IMPRESSION: No acute pulmonary findings. DATA REPOSITORY: RADIATION DOSE DELIVERED:
--- NOTE | 2021-06-30 19:00 | RT.EKG_ITS ---
APPROVED REPORT Exam: Resting ECG Reason for Exam: chest pain Patient Location: E HR:85 bpm ECG Measurements Heart Rate 85 AXIS NE 148 P 62 QRSd 100 QRS 61 QT 340 T 7 QTc 405 Conclusion Sinus rhythm...normal P axis, V-rate 60- 99 Probable left atrial enlargement...P >50mS, <-0.10mV V1 ST elev, probable normal early repol pattern...ST elevation, age<55 Physician: no stemi, subtle elevation in V1 with Q wave and inverted t wave in III. unchanged from
[2021-06-30] MEDS: LORazepam 2 MG/ML VIAL 1 MG IVP (19:24)
[2021-06-30 19:39] LABS: Source Nasal/Nares
[2021-06-30 19:53] LABS: INR 1.1 (0.9-1.1); PTT Activated 26.2 sec (21.0-27.5); Prothrombin Time 11.2 sec (9.3-11.0)
[2021-06-30 19:54] LABS: Troponin I < 50 ng/L (<or=60)
--- NOTE | 2021-06-30 19:57 | DI.VRAD_ITS ---
PROCEDURE INFORMATION: Exam: XR Chest Exam date and time: 06/30/2021 7:43 PM Age: 31 years old Clinical indication: Other: General chest pain TECHNIQUE: Imaging protocol: XR of the chest. Views: 2 views. COMPARISON: CT THORAX ABD/PEL CTA 05/23/2021 11:39 PM FINDINGS: Lungs: Unremarkable. No consolidation. Pleural spaces: Unremarkable. No pleural effusion. No pneumothorax. Heart/Mediastinum: Unremarkable. No cardiomegaly. Bones/joints: Unremarkable. IMPRESSION: No acute findings. Dictated and Authenticated by: Shyanne Lara MD. Ordering:GOPAL Johnson MD
[2021-06-30 20:16] LABS: COVID-19 PCR Negative (Negative)
[2021-06-30 20:19] LABS: D-Dimer 84 ng/mlFEU (<500)
[2021-06-30 22:10] LABS: Troponin I < 50 ng/L (<or=60)
[2021-06-30 22:11] LABS: *AMPHETAMINES SCREEN URINE Negative (Negative); *BARBITURATES SCREEN URINE Negative (Negative); *BENZODIAZEPINES SCREEN URINE Negative (Negative); Cannabinoids THC Positive (Negative); Cocaine Screen,Urine Positive (Negative); METHADONE URINE SCREEN Negative (Negative); OPIATES URINE SCREEN Negative (Negative)
[2021-06-30 22:12] LABS: Tricyclic Antidepressants Negative (Negative)
== END 2021-06-30 22:28 | disposition home or self-care (01) ==
PROVIDERS: Emergency Provider Physician Assistant; PCP Family Medicine
DX: R10.9 Unspecified abdominal pain (principal); R07.9 Chest pain, unspecified; R07.89 Other chest pain; F17.210 Nicotine dependence, cigarettes, uncomplicated; M54.50 Low back pain, unspecified; R31.9 Hematuria, unspecified
CPT/HCPCS: 80053; 80307; 87635; 93005; 96361; 96374; 96375; 99284; 99285; 71046; 74176; 81003; 83735; 84484; 85025; 85379; 85610; 85730; 93010; J1885; J2060

== ENCOUNTER 2021-09-20 17:41 | Emergency (ER) | payer MEDICAID, SELFPAY ==
[2021-09-20 17:41] VITALS: BP 151/91; PULSE 98; RESP 20; TEMP 37.3; O2SAT 95
--- NOTE | 2021-09-20 17:45 | RT.EKG_ITS ---
APPROVED REPORT Exam: Resting ECG Reason for Exam: SEIZURE Patient Location: E HR:99 bpm ECG Measurements Heart Rate 99 AXIS NV 135 P 74 QRSd 109 QRS 77 QT 358 T 25 QTc 461 Conclusion Sinus rhythm...normal P axis, V-rate 60- 99 sinus rhythm, normal axis, normal intervals, non ischemic
--- NOTE | 2021-09-20 17:46 | ED.GENADUL_ITS ---
Discharge Plan Disposition Patient Disposition: HOME Condition: Improving Discharge Details Clinical Impression: Seizure Primary Care Provider: Estuardo Hernandez ED Provider: Tomasz Suero Home Meds and New Rx's Prescriptions: New levetiracetam [Keppra] 500 mg tablet 500 mg PO BID Qty: 30 0RF No Action lisinopril 5 mg Tablet 5 mg PO DAILY Label Comments: no longer taking 05/21/2019 VM Discharge Instructions Instructions: Recurrent Seizures in Adults (ED) Additional Instructions: Please follow-up with neurology next week. Please take medications as prescribed. Please return to the emergency department if you have any worsening symptoms. Medical Decision Making 31 year-old male brought in by EMS for witnessed seizure activity as well as resolved hypoxia. Patient was given Narcan and midazolam in the field with improvement of mental status. Fingerstick in the field 160s. No external signs of trauma. Patient opening eyes to verbal command, moving all extremities full strength, no focality, appears persistently somnolent. Pupils normal size. Consider postictal state from seizure versus primary epilepsy versus hypoxia induced seizure in the setting of opioid use versus less likely intracranial hemorrhage edema or mass. Will obtain screening labs will provide fluid, close reassessment mental status., 18: 12 patient alert and oriented ambulatory removing his bedside monitor stickers and trying to remove his IV. Counseled to stay for further evaluation however does not want to stay. Endorses that he has had a seizure disorder since he was young however has never been on any antiepileptics or see a neurologist. Will load patient with oral Keppra will provide neurology referral for next week. Given return precautions. HPI General Date/Time Provider Initiated Documentation: 09/20/21 17:41 . HPI Narrative: 30-year-old male with possible history of seizure disorder, prior drug abuse, presents after witnessed seizure, active convulsion in the field upon EMS arrival, hypoxic to the 80s, improvement of mental status after 10 of midazolam and Narcan administration. Patient still somnolent however responding to verbal stimuli. Related Data Home Medications Medication Instructions Recorded Confirmed lisinopril 5 mg tablet 5 mg PO DAILY 03/26/19 05/23/21 levetiracetam 500 mg tablet 500 mg PO BID #30 tabs 09/20/21 (Keppra) Previous Rx's Medication Instructions Recorded levetiracetam 500 mg tablet 500 mg PO BID #30 tabs 09/20/21 (Keppra) Allergies Allergy/AdvReac Type Severity Reaction Status Date / Time levofloxacin [From Levaquin] Allergy Agitation Unverified 05/23/21 22:44 vanilla Allergy Severe Anaphylaxsi Uncoded 05/23/21 22:44 s bee Allergy Uncoded 05/23/21 22:44 General ALESSANDRA: 3 Review of Systems Narrative: Review of Systems Constitutional: negative Eyes: negative ENT: negative Cardiovascular: negative Respiratory: Hypoxia Gastrointestinal: negative : negative Musculoskeletal: negative Skin: negative Neurologic: Seizure Psych: negative PFSH All Active Problems (Updated 09/20/21 @ 18:13 by Tomasz Suero MD) ETOH abuse (Chronic) Seizure (Acute) No-show for appointment (Acute) Medical History HTN (hypertension) Surgical History No significant past surgical history Social History Smoking/Tobacco Use Status: Current every day Tobacco Type: cigarettes Smoking risk assessment performed?: Yes Alcohol Intake: current Alcohol Intake frequency: a few times a month Drug use: Occasionally Substance use type: marijuana Do you feel safe at home: Yes Do you feel safe in your relationship?: Yes Exam Narrative Exam Narrative: Physical Examination General: Somnolent HEENT: normocephalic, atraumatic; PERRL, EOM intact, conjunctiva normal; no nasal discharge; moist mucous membranes, oral and pharyngeal mucosa normal, tolerating secretions Neck: supple, trachea midline; full ROM Chest: normal to inspection Respiratory: normal respiratory effort, speaking in full sentences, clear to auscultation, no wheezing, rales or rhonchi Cardiac: regular rate, regular rhythm, S1S2 intact, no murmurs rubs or gallops GI: abdomen soft, non-tender, non-distended; no palpable mass or hepatosplenomegaly Skin: no lesions, rashes or trauma appreciated Neuro: Somnolent, opening eyes to verbal stimuli, following verbal command, quiet speech moving all extremities with full strength,
[2021-09-20 18:05] LABS: Abs Immature Grans 0.01 10^3/uL (0.0-0.06); Absolute Basophil Count 0.04 10^3/uL (0.0-0.2); Absolute Eosinophil Count 0.21 10^3/uL (0.0-0.7); Absolute Lymphocyte Count 1.15 10^3/uL (1.2-3.4); Absolute Monocyte Count 0.49 10^3/uL (0.1-0.8); Absolute Neutrophil Count 5.92 10^3/uL (1.2-6.7); Basophils % 0.5; Eosinophils % 2.7; HCT 40.6 % (40.0-50.0); HGB 14.1 g/dL (13.5-17.5); Immature Grans % 0.1; Lymphocytes % 14.7; MCH 29.7 pg (27.0-33.0); MCHC 34.7 % (32.0-36.0); MCV 86 fL (80-95); MPV 10.9 fL (8.0-11.0); Monocytes % 6.3; Neutrophils % 75.7; Platelet Count 211 10^3/uL (130-400); RBC 4.74 10^6/uL (4.36-5.78); RDW 12.2 % (11.8-14.1); RDW-SD 38.2 fL; WBC 7.82 10^3/uL (4.4-10.8)
[2021-09-20] MEDS: Normal Saline 1,000 ML 1000 ML IV (18:06)
--- NOTE | 2021-09-20 18:17 | NUR.NOTE ---
Nursing Note: Referral faxed to [facility] Neurology for seizure, history of; for next week.
[2021-09-20 18:18] LABS: ALT 43 U/L (16-63); AST 26 U/L (15-37); Albumin 3.8 g/dL (3.4-5.0); Alkaline Phosphatase 54 U/L (46-116); Anion Gap 12.2 mmol/L (3-11); BUN 12 mg/dL (7-18); Bilirubin, Total 0.8 mg/dL (0.2-1.0); CO2 25.8 mmol/L (21.0-32.0); CREATININE 1.2 mg/dL (0.70-1.30); Chloride 105 mmol/L (98-107); Glucose 148 mg/dL (74-106); Sodium 143 mmol/L (136-145); Total Protein 7.1 g/dL (6.4-8.2)
[2021-09-20 18:20] LABS: Potassium 2.9 mmol/L (3.5-5.1)
[2021-09-20] MEDS: levETIRAcetam 250 MG TAB 1000 MG PO (18:21)
== END 2021-09-20 18:30 | disposition home or self-care (01) ==
LOC: ER 18:36
PROVIDERS: Emergency Provider Emergency Medicine; PCP Family Medicine
DX: G40.909 Epilepsy, unspecified, not intractable, without status epilepticus (principal); I10 Essential (primary) hypertension; F17.210 Nicotine dependence, cigarettes, uncomplicated
CPT/HCPCS: 80053; 93005; 96360; 99284; 85025; 93010

== ENCOUNTER 2022-09-21 17:52 | Emergency (ER) | payer MEDICAID, SELFPAY ==
[2022-09-21] VITALS (14 sets, daily range): BP systolic 123–161; BP diastolic 72–115; PULSE 65–121; RESP 9–21; TEMP 36; O2SAT 94–99
--- NOTE | 2022-09-21 18:15 | RT.EKG_ITS ---
APPROVED REPORT Exam: Resting ECG Reason for Exam: syncope Patient Location: E HR:104 bpm ECG Measurements Heart Rate 104 AXIS NC 136 P 66 QRSd 101 QRS 62 QT 346 T 14 QTc 456 Conclusion Sinus tachycardia...rate> 99 ST elev, probable normal early repol pattern...ST elevation, age<55
[2022-09-21] MEDS: diphenhydrAMINE 50 MG/ML VIAL 25 MG IVP (18:25)
[2022-09-21] MEDS: Prochlorperazine 10 MG/2 ML VIAL IVP (18:25)
[2022-09-21] MEDS: Normal Saline 1,000 ML 1000 ML IV (18:26)
--- NOTE | 2022-09-21 18:30 | DI.CT_ITS ---
Exam(s) CT HEAD WO EXAM: CT HEAD WO CLINICAL HISTORY: headaches. TECHNIQUE: Imaging Protocol: Axial computed tomography images with coronal and sagittal reformatted images were created and reviewed COMPARISON: CT CT HEAD WO from 03/22/2020 FINDINGS: There are no skull fractures. There is no fluid in the visualized paranasal sinuses. There is no evidence of intracranial hemorrhage, mass effect, or shift of midline structures. There are no extra-axial fluid collections. The ventricles are not enlarged or shifted and there is no blo od within the ventricular system nor within the basal cisterns. There is a developmental sub lenticular cyst on the left side again noted measuring 6 by 4 by 5 mm. IMPRESSION: No acute intracranial findings on this noninfused CT scan of the brain. RADIATION DOSE DELIVERED: Total DLP DATA REPOSITORY: All CT scans at this facility are submitted to the National Radiology Data Registry (NRDR) Dose Index Registry (DIR) with the [employer] (ACR). RADIATION OPTIMIZATION: All CT scans at this facility use at least one of these dose optimization te chniques: automated exposure control; mA and/or kV adjustment per patient size (includes targeted exa ms where dose is matched to clinical indication); or iterative reconstruction.
[2022-09-21 18:35] LABS: Abs Immature Grans 0.02 10^3/uL (0.0-0.06); Absolute Basophil Count 0.04 10^3/uL (0.0-0.2); Absolute Eosinophil Count 0.05 10^3/uL (0.0-0.7); Absolute Lymphocyte Count 1.05 10^3/uL (1.2-3.4); Absolute Monocyte Count 0.58 10^3/uL (0.1-0.8); Absolute Neutrophil Count 6.17 10^3/uL (1.2-6.7); Basophils % 0.5; Eosinophils % 0.6; HCT 46.3 % (40.0-50.0); HGB 15.9 g/dL (13.5-17.5); Immature Grans % 0.3; Lymphocytes % 13.3; MCH 29.7 pg (27.0-33.0); MCHC 34.3 % (32.0-36.0); MCV 87 fL (80-95); MPV 10.6 fL (8.0-11.0); Monocytes % 7.3; Platelet Count 231 10^3/uL (130-400); RBC 5.35 10^6/uL (4.36-5.78); RDW 12.4 % (11.8-14.1); RDW-SD 39.5 fL; WBC 7.91 10^3/uL (4.4-10.8)
--- NOTE | 2022-09-21 18:43 | W.ED.GENAD ---
Discharge Plan Disposition Patient Disposition: Home Condition: Stable Discharge Details Clinical Impression: Headache Primary Care Provider: Estuardo Hernandez ED Provider: Bunny Mccurdy Home Meds and New Rx's Prescriptions: Discontinued lisinopril 5 mg Tablet 5 mg PO DAILY Patient Comments: no longer taking levetiracetam [Keppra] 500 mg tablet 500 mg PO BID Qty: 30 0RF Patient Comments: pt states no longer taking Discharge Instructions Instructions: General Headache (ED) Additional Instructions: Your cat scan and blood work did not show concerning findings Follow up with your primary care provider within 1 week if you feel more ill, have severe worsening pain or new symptoms such as difficulty breathing return to the emergency department Medical Decision Making 32 yo male who states he has a hx of htn but doesn't take medications for it, who comes in with 1 week of intermittent headaches. HE states they start slowly and are localized to the front left of his head. HE denies vomiting or fevers. He states that he had one episode where he may have lost consciousness but doesn't provide great detail of this, denies having chest pain, dyspnea or falls. He denies routine alcohol use or drug use other then marijuana. He is caox4 with normal gait on arival. He has no focal deficits, CN II-XII intact, no meniningismus. HE has a headache now that he states started approximately 3 hours ago. Given he has no history of similar headaches will proceed with ct head and basic labs, he has no findings on exam or history to suggest merchandising execution associate infection labs unremarkble, ct head unremarkable, pt feels better, no longer has a headache. Suspicion for subarachnoid and merchandising execution associate infection is low, discussed pros and cons of LP and pt declines to have this done, has decision making capacity and I feel this is reasonable. Will have him f/u with his pcp, return precautions given Differential Diagnosis Differential Diagnosis: migraine, cluster headache, hemorrhage Medical Records Medical records reviewed: Yes I reviewed the patient's medical records. Imaging Data Radiologic Study: Attestation: I personally reviewed and interpreted this imaging study as follows: Imaging: CT Scan Radiologist's impression: no acute findings Lab Data Lab results reviewed: Yes I reviewed the patient's lab results. ECG Data Attestation: I personally reviewed and interpreted this ECG (s) as follows: Prior ECG tracings: available for review Interpretation: sinus tach, rate of 104, pr 136, no stemi HPI General Mode of arrival: ambulatory. Date/Time Provider Initiated Documentation: 09/21/22 18:10. Limitations to Documentation: no limitations. Information obtained by: patient. History of Present Illness 32 year old M presents to the emergency department with the chief complaint of headaches, described as moderate, Patient started experiencing this hour(s) (2) and it has been constant. No relieving factors improve symptom(s), No exacerbating factors reported . Patient notes denies chest pain, fever/chills and shortness of breath. Related Data Allergies Allergy/AdvReac Type Severity Reaction Status Date / Time levofloxacin [From Levaquin] Allergy Agitation Unverified 09/21/22 18:00 vanilla Allergy Severe Anaphylaxsi Uncoded 09/21/22 18:00 s bee Allergy Uncoded 09/21/22 18:00 General Stated Complaint: Headache ALESSANDRA: 3 Review of Systems All systems reviewed & are unremarkable except as noted in HPI and below Constitutional Constitutional: Denies chills, Denies fever(s) and Denies weakness Cardiovascular Cardiovascular: Denies chest pain and Denies dyspnea Respiratory Respiratory: Denies cough and Denies dyspnea Gastrointestinal Gastrointestinal: Denies abdominal pain, Denies nausea and Denies vomiting Musculoskeletal Musculoskeletal: Denies joint swelling Integumentary/Breasts Skin/Breast: Denies rash Neurologic Neurologic: Denies weakness PFSH All Active Problems (Updated 09/21/22 @ 20:02 by Bunny Mccurdy MD) ETOH abuse (Chronic) Headache (Acute) No-show for appointment (Acute) Medical History HTN (hypertension) Surgical History No significant past surgical history Social History Smoking/Tobacco Use Status: Current every day Tobacco Type: cigarettes Smoking risk assessment performed?: Yes Alcohol Intake: current Alcohol Intake frequency: a few times a month Alcohol type: beer Drug use: Socially Substance use type: marijuana and opiates Details: former opiate user. Housing: apartment Do you feel safe at home: Yes Do you feel safe in your relationship?: Yes Exam Const General: no acute distress Orientation: alert HENMT Head: normal to inspection Ears: external ears normal General nose exam: external nose normal Mouth: moist mucous membranes Eyes General: appearance normal, both eyes and all related structures Neck Neck: normal visual inspection Resp Effort & Inspection: normal respiratory effort and able to speak in complete sentences Auscultation: clear to auscultation bilaterally Cardio Jugular venous pressure: no JVD Rate: regular rate Heart Sounds: no murmurs GI Palpation: soft and nontender Skin General skin exam: no rashes or lesions noted Neuro General: patient alert and patient oriented x3 Extrem General: normal to inspection Psych Mental Status: mental status grossly normal Course Vital Signs Vital signs: Vital Signs Temperature 36.0 C L 09/21/22 17:56 Pulse 121 H 09/21/22 17:56 Respiratory Rate 20 09/21/22 17:56 Blood Pressure 161/115 H 09/21/22 17:56 Pulse Oximetry 98 09/21/22 17:56 Temperature 36.0 C L 09/21/22 17:56 Temperature Source Skin 09/21/22 17:56 Pulse 121 H 09/21/22 17:56 Respiratory Rate 20 09/21/22 17:56 Respiratory Effort Normal, Non-Labored 09/21/22 18:01 Blood Pressure 161/115 H 09/21/22 17:56 Blood Pressure Position Sitting 09/21/22 17:56 Pulse Oximetry 98 09/21/22 17:56 Oxygen Delivery Method Room Air 09/21/22 17:56 Oxygen Flow Rate 0 09/21/22 17:56 Pain Level 8 09/21/22 18:07 Lab/Test Results Lab/Test Results: Laboratory Tests Range/Units 09/21/22 18:30 WBC (4.4-10.8) 10^3/uL 7.91 RBC (4.36-5.78) 10^6/uL 5.35 Hgb (13.5-17.5) g/dL 15.9 Hct (40.0-50.0) % 46.3 MCV (80-95) fL 87 MCH (27.0-33.0) pg 29.7 MCHC (32.0-36.0) % 34.3 RDW (11.8-14.1) % 12.4 Plt Count (130-400) 10^3/uL 231 MPV (8.0-11.0) fL 10.6 Immature Gran % 0.3 Neutrophils % 78.0 Lymphocytes % 13.3 Monocytes % 7.3 Eosinophils % 0.6 Basophils % 0.5 Nucleated RBC % (0.0-0.3) % 0.0 Absolute Neutrophils (1.2-6.7) 10^3/uL 6.17 Absolute Lymphocytes (1.2-3.4) 10^3/uL 1.05 L Absolute Monocytes (0.1-0.8) 10^3/uL 0.58 Absolute Eosinophils (0.0-0.7) 10^3/uL 0.05 Absolute Basophils (0.0-0.2) 10^3/uL 0.04 PAWSS Have you Been Recently Intoxicated or Drunk Within the Last 30 days?: No Have you Ever Experienced Previous Episodes of Alcohol Withdrawal?: No Have you ever Experienced Withdrawal Seizures?: No Have you ever Experienced Delirium Tremens(DT)s?: No Have you ever undergone Alcohol Rehabilitation Treatment (i.e, inpt ot outpatient treatment programs)?: No Have you ever Experienced Blackouts?: No Have you ever Combined Alcohol with other Downers within the last 90 days?: No Have you ever Combined Alcohol with any other Substance of Abuse during the last 90 days?: No Positive Blood Alcohol level on Presentation? [PCS.BAL]: No Evidence of Increased Autonomic Activity (i.e. HR>120, tremor, sweating, agitation, nausea)?: No Result: 0
[2022-09-21 18:58] LABS: Troponin I < 50 ng/L (<or=60)
[2022-09-21 18:59] LABS: ALT 53 U/L (16-63); AST 31 U/L (15-37); Albumin 4.1 g/dL (3.4-5.0); Alkaline Phosphatase 56 U/L (46-116); Anion Gap 10.8 mmol/L (3-11); BUN 10 mg/dL (7-18); Bilirubin, Total 0.7 mg/dL (0.2-1.0); CO2 26.2 mmol/L (21.0-32.0); CREATININE 1.1 mg/dL (0.70-1.30); Calcium 8.8 mg/dL (8.5-10.1); Chloride 105 mmol/L (98-107); ETHANOL BLOOD < 3.0 mg/dL (<10); Estimated GFR 90.34 (mL/min/1.73m2); Glucose 180 mg/dL (74-106); Magnesium 1.9 mg/dL (1.8-2.4); Potassium 4.2 mmol/L (3.5-5.1); Sodium 142 mmol/L (136-145); Total Protein 7.8 g/dL (6.4-8.2)
--- NOTE | 2022-09-21 19:56 | DI.VRAD_ITS ---
PROCEDURE INFORMATION: Exam: CT Head Without Contrast Exam date and time: 09/21/2022 7:19 PM Age: 32 years old Clinical indication: Pain; Headache not specified; Patient HX: Headache, from over left eye and moving to back of head TECHNIQUE: Imaging protocol: Computed tomography of the head without contrast. Radiation optimization: All CT scans at this facility use at least one of these dose optimization techniques: automated exposure control; mA and/or kV adjustment per patient size (includes targeted exams where dose is matched to clinical indication); or iterative reconstruction. COMPARISON: CT HEAD WO 03/22/2020 9:31 PM FINDINGS: Brain: Normal. No hemorrhage. Unremarkable white matter. No mass effect. Cerebral ventricles: No ventriculomegaly. Paranasal sinuses: Visualized sinuses are unremarkable. No fluid levels. Mastoid air cells: Visualized mastoid air cells are well aerated. Bones/joints: Unremarkable. No acute fracture. Soft tissues: Unremarkable. IMPRESSION: No acute intracranial abnormality. Dictated and Authenticated by: Jace Ruiz MD. Ordering:NATTY Hollis MD
[2022-09-21 20:12] LABS: Bilirubin Negative (Negative); Blood Negative (Negative); Clarity Clear (Clear); Glucose Negative (Negative); Ketones Negative (Negative); Leukocyte Esterase Negative (Negative); Nitrite Negative (Negative); Urobilinogen 0.2 mg/dL (Up to 0.2)
[2022-09-21 20:20] LABS: *AMPHETAMINES SCREEN URINE Negative (Negative); *BARBITURATES SCREEN URINE Negative (Negative); *BENZODIAZEPINES SCREEN URINE Negative (Negative); Cannabinoids THC Positive (Negative); Cocaine Screen,Urine Positive (Negative); METHADONE URINE SCREEN Negative (Negative); OPIATES URINE SCREEN Negative (Negative)
[2022-09-21 20:22] LABS: Tricyclic Antidepressants Negative (Negative)
== END 2022-09-21 20:14 | disposition home or self-care (01) ==
PROVIDERS: Emergency Provider Emergency Medicine; PCP Family Medicine
DX: R51.9 Headache, unspecified (principal); R55 Syncope and collapse; R00.0 Tachycardia, unspecified; I10 Essential (primary) hypertension; F17.210 Nicotine dependence, cigarettes, uncomplicated
CPT/HCPCS: 36415; 80053; 80307; 93005; 96360; 99284; 70450; 80320; 81003; 83735; 84443; 84484; 85025; 93010; 99283; J0780; J1200

== ENCOUNTER 2022-10-14 07:47 | Emergency (ER) | payer MEDICAID, SELFPAY ==
[2022-10-14] VITALS (16 sets, daily range): BP systolic 133–156; BP diastolic 84–113; PULSE 86–122; RESP 9–27; TEMP 37.1; O2SAT 92–100
--- NOTE | 2022-10-14 07:45 | DI.CT_ITS ---
Exam(s) CT HEAD WO EXAM: CT HEAD WO CLINICAL HISTORY: Acute encephalopathy. TECHNIQUE: Imaging Protocol: Axial computed tomography images with coronal and sagittal reformatted images were created and reviewed COMPARISON: No exams were available for comparison FINDINGS: Ventricles and Extra axial spaces: Normal in size and morphology for the patient's age. Hemorrhage: None. Cerebral parenchyma: No evidence of acute infarct or mass. Midline shift: None. Brainstem/Cerebellum: Normal. Calvarium: Normal. Visualized Paranasal sinuses/Mastoids: Clear. Soft Tissues: Unremarkable. IMPRESSION: No acute intracranial process. RADIATION DOSE DELIVERED: 914.81mGy.cm Total DLP DATA REPOSITORY: All CT scans at this facility are submitted to the National Radiology Data Registry (NRDR) Dose Index Registry (DIR) with the [employer] (ACR). RADIATION OPTIMIZATION: All CT scans at this facility use at least one of these dose optimization te chniques: automated exposure control; mA and/or kV adjustment per patient size (includes targeted exa ms where dose is matched to clinical indication); or iterative reconstruction.
--- NOTE | 2022-10-14 07:45 | DI.RAD_ITS ---
Exam(s) XR PORTABLE CHEST AP EXAM: XR PORTABLE CHEST AP CLINICAL HISTORY: SOB TECHNIQUE: 2D digital imaging was performed. COMPARISON: No exams were available for comparison FINDINGS: LUNGS: Clear. No pleural abnormality seen. HEART: Normal size. AORTA: Normal diameter. BONES: Unremarkable for age. Soft tissues: Unremarkable. IMPRESSION: No acute findings. DATA REPOSITORY: RADIATION DOSE DELIVERED:
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
[2022-10-14 08:02] LABS: BE (Venous) -1 mmol/L (-2-3); HCO3 (Venous) 27 mmol/L (23-28); O2 Sat (Venous) 82 %; TCO2 (Venous) 25 mmol/L (24-29); pH (Venous) 7.21 (7.31-7.41); pO2 (Venous) 55 mmHg
[2022-10-14 08:04] LABS: Abs Immature Grans 0.08 10^3/uL (0.0-0.06); Absolute Basophil Count 0.14 10^3/uL (0.0-0.2); Absolute Eosinophil Count 0.62 10^3/uL (0.0-0.7); Absolute Lymphocyte Count 4.22 10^3/uL (1.2-3.4); Basophils % 0.7; Eosinophils % 3.2; HGB 15.8 g/dL (13.5-17.5); Immature Grans % 0.4; Lymphocytes % 21.6; MCH 29.6 pg (27.0-33.0); MCHC 34.3 % (32.0-36.0); MCV 86 fL (80-95); MPV 10.2 fL (8.0-11.0); Monocytes % 10.1; Platelet Count 300 10^3/uL (130-400); RBC 5.33 10^6/uL (4.36-5.78); RDW 12.1 % (11.8-14.1); WBC 19.53 10^3/uL (4.4-10.8)
[2022-10-14 08:06] LABS: pCO2 (Venous) 67 mmHg (41-51)
[2022-10-14] MEDS: Ondansetron 4 MG/2 ML VIAL IVP (08:10)
[2022-10-14] MEDS: Normal Saline 1,000 ML 1000 ML IV (08:10)
[2022-10-14 08:11] LABS: Absolute Monocyte Count 1.97 10^3/uL (0.1-0.8)
[2022-10-14 08:22] LABS: BUN 13 mg/dL (7-18); CREATININE 1.1 mg/dL (0.70-1.30); Chloride 103 mmol/L (98-107); Creatine Kinase 296 U/L (39-308); Estimated GFR 90.34 (mL/min/1.73m2); Glucose 120 mg/dL (74-106); Lipase 24 U/L (16-77); Potassium 3.8 mmol/L (3.5-5.1); Sodium 143 mmol/L (136-145); Troponin I < 50 ng/L (<or=60)
[2022-10-14 08:23] LABS: ETHANOL BLOOD < 3.0 mg/dL (<10)
[2022-10-14 08:27] LABS: Diff Comment Diff Reviewed; RBC Morphology Normal
[2022-10-14 08:31] LABS: Acetaminophen < 2 ug/mL (10-30)
[2022-10-14] MEDS: Acetaminophen 500 MG TAB 1000 MG PO (09:07)
--- NOTE | 2022-10-14 09:21 | DI.VRAD_ITS ---
PROCEDURE INFORMATION: Exam: CT Head Without Contrast Exam date and time: 10/14/2022 7:58 AM Age: 32 years old Clinical indication: Other: Acute encephalopathy TECHNIQUE: Imaging protocol: Computed tomography of the head without contrast. Radiation optimization: All CT scans at this facility use at least one of these dose optimization techniques: automated exposure control; mA and/or kV adjustment per patient size (includes targeted exams where dose is matched to clinical indication); or iterative reconstruction. COMPARISON: No relevant prior studies available. FINDINGS: Brain: No evidence of cerebral edema. There is no acute intracranial hemorrhage. No extra-axial fluid collection. No evidence of acute infarct. Anderson white differentiation is intact. There is no evidence of mass. There is no mass effect or midline shift. Cerebral ventricles: No ventriculomegaly. Paranasal sinuses: Mild scattered mucosal thickening in paranasal sinuses. Mastoid air cells: No significant mastoid effusion. Bones/joints: No acute fracture. Soft tissues: Unremarkable as visualized. IMPRESSION: No evidence of acute intracranial abnormality. No acute hemorrhage. No evidence of acute infarct or mass. Dictated and Authenticated by: Nga Flores MD. Ordering:MADELAINE Marte MD
== END 2022-10-14 10:01 | disposition home or self-care (01) ==
PROVIDERS: Emergency Provider Emergency Medicine
DX: J96.01 Acute respiratory failure with hypoxia (principal); J96.02 Acute respiratory failure with hypercapnia; S06.9X9A Unspecified intracranial injury with loss of consciousness of unspecified duration, initial encounter; S01.81XA Laceration without foreign body of other part of head, initial encounter; Y08.02XA Assault by strike by baseball bat, initial encounter; Z23 Encounter for immunization; I10 Essential (primary) hypertension; F17.210 Nicotine dependence, cigarettes, uncomplicated; T40.601A Poisoning by unspecified narcotics, accidental (unintentional), initial encounter
CPT/HCPCS: 36415; 80048; 82550; 82805; 83690; 90471; 96361; 96374; 99291; 70450; 71045; 80320; 80329; 84484; 85025; J2310; J2405

== ENCOUNTER 2024-03-30 19:03 | Emergency (ER) | payer MEDICAID, SELFPAY ==
[2024-03-30] VITALS (11 sets, daily range): BP systolic 148–183; BP diastolic 102–117; PULSE 81–103; RESP 8–20; O2SAT 96–100
--- NOTE | 2024-03-30 19:06 | ED.GENADUL_ITS ---
Discharge Plan Disposition Patient Disposition: Home Condition: Stable Discharge Details Chief Complaint: Allergic Clinical Impression: Anaphylactic reaction Primary Care Provider: Unknown,Unknown ED Provider: Bunny Mccurdy Home Meds and New Rx's Prescriptions: No Action No Known Home Meds Discharge Instructions Instructions: Anaphylaxis Additional Instructions: You can take 25 to 50 mg of Benadryl every 6 hours as needed If you develop any sensation of throat swelling, difficulty breathing or abdominal pain use your EpiPen and return to the emergency department for reevaluation Follow-up with your primary care provider especially if you are having continued symptoms such as itching or rashes. HPI General Mode of arrival: ambulatory . Date/Time Provider Initiated Documentation: 03/30/24 19:06 . Limitations to Documentation: no limitations . Information obtained by: patient . History of Present Illness 33 year old M presents to the emergency department with the chief complaint of Throat swelling, described as moderate, Quality is described as other (Itching), and is localized to the face and mouth. Patient reports no radiation. Patient started experiencing this minute(s) (30) and it has been constant. No relieving factors improve symptom(s), No exacerbating factors reported . Patient notes denies chest pain and shortness of breath. Related Data Home Medications ?Medication ?Instructions ?Recorded ?Confirmed Unknown [No Known Home Meds] 03/30/24 03/30/24 Allergies Allergy/AdvReac Type Severity Reaction Status Date / Time mushroom Allergy Severe Anaphylaxis Verified 03/30/24 19:04 levofloxacin (From Levaquin) Allergy Agitation Verified 03/30/24 19:04 bee Allergy Severe Anaphylaxis Uncoded 03/30/24 19:04 vanilla Allergy Severe Anaphylaxsi Uncoded 03/30/24 19:04 s General Stated Complaint: Allergic ALESSANDRA: 2 Review of Systems All systems reviewed & are unremarkable except as noted in HPI and below Constitutional Constitutional: Denies chills, Denies fever(s) and Denies weakness ENT Ears, Nose, Mouth, and Throat: Reports throat swelling Cardiovascular Cardiovascular: Denies chest pain and Denies dyspnea Respiratory Respiratory: Denies cough and Denies dyspnea Gastrointestinal Gastrointestinal: Denies abdominal pain, Denies nausea and Denies vomiting Neurologic Neurologic: Denies weakness Psychiatric Psychiatric: Denies depression Allergic/Immunologic Allergic/Immunologic: Reports throat swelling Exam Const General: no acute distress Orientation: alert HENAL Head: normal to inspection Ears: external ears normal General nose exam: external nose normal Mouth: abnormal tongue and moist mucous membranes Throat: posterior oropharynx normal Eyes General: appearance normal, both eyes and all related structures Neck Neck: normal visual inspection Resp Effort & Inspection: normal respiratory effort and able to speak in complete sentences Auscultation: clear to auscultation bilaterally Cardio Rate: regular rate Skin General skin exam: no rashes or lesions noted Neuro General: patient alert and patient oriented x3 Extrem General: normal to inspection Psych Mental Status: mental status grossly normal Course Vital Signs Vital signs: Vital Signs Pulse 103 H 03/30/24 18:58 Respiratory Rate 14 03/30/24 18:58 Blood Pressure 183/111 H 03/30/24 18:58 Pulse Oximetry 96 03/30/24 18:58 Pulse 103 H 03/30/24 18:58 Respiratory Rate 14 03/30/24 18:58 Blood Pressure 183/111 H 03/30/24 18:58 Pulse Oximetry 96 03/30/24 18:58 Oxygen Delivery Method Room Air 03/30/24 18:58 Oxygen Flow Rate 0 03/30/24 18:58 Pain Level 0 03/30/24 18:58 Medical Decision Making 33-year-old 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 EMS was called and they gave him IM epinephrine, dexamethasone and Benadryl and he states he feels significantly better. He denies difficulty breathing, difficulty swallowing. He says his tongue still feels mildly enlarged. The anterior there is a tongue is mildly swollen. The posterior pharynx is normal with a midline uvula. Clear lung sounds, no abdominal tenderness. Suspect he did have anaphylaxis which has been treated adequately. I will add on famotidine and will plan to observe the patient for recurrence. Patient stable and requesting discharge. Tongue is no longer swollen. I advised him we normally like to observe Bill for least 4 hours but he does not want to stay any further and has medical decision-making capacity. He understands the risks of leaving including recurrent anaphylaxis, he states that he has an EpiPen at home that he will use if he has any symptoms and return. He will follow-up with his PCP and return precautions given Differential Diagnosis Differential Diagnosis: Anaphylaxis, allergic reaction Quality:SDOH Health Related Social Needs: No Data to Display PFSH All Active Problems (Updated 03/30/24 @ 20:04 by Bunny Mccurdy MD) Anaphylactic reaction (Acute) ETOH abuse (Chronic) No-show for appointment (Acute) Medical History HTN (hypertension) Surgical History No significant past surgical history Social History (System 10/14/22 @ 10:52 by Rosalinda Conroy) Smoking/Tobacco Use Status: Current every day Tobacco Type: cigarettes Smoking risk assessment performed?: Yes Alcohol Intake: current Alcohol Intake frequency: a few times a month Alcohol type: beer Drug use: Socially Substance use type: marijuana and opiates Details: former opiate user. Housing: apartment Do you feel safe at home: Yes Do you feel safe in your relationship?: Yes
[2024-03-30] MEDS: Famotidine 20 MG/2 ML VIAL IVP (19:10)
--- OUTSIDE RECORDS SUMMARY | 2024-03-30 20:11 | XMS_ITS | Clinical Summary ---
Author Organization [facility] Address [address] [place] [id number] Care Team Providers Care Manual Plate Filler Name Role Phone Unknown, Provider MD Primary Care Provider Unava ilable Social History Tobacco Use Types Packs/Day Years Used Date Smoking Tobacco: Never Assessed Sex and Gender Information Value Date Recorded Sex Assigned at Not on file Legal Sex Male 18:43 EST Gender Identity Not on file Sexual Orientation Not on file Plan of Treatment Health Maintenance Due Date Last Done Comments Hepatitis B Vaccine (1 of 3 - 19+ 3-dose series) 05/05/2007 COVID-19 Vaccine (2023-2 5 season) 2023 Hepatitis C Screen Completed 07/01/2020, 0 07/01/2020, 05/09/2019, Additional history exists Procedures Procedure Name Priority Date/Time Associated Diagnosis Comments HEPATITIS C AB W REFLEX TO HCV RNA BY PCR Routine 07/01/2020 9:30 EDT from Last 3 Months or Most Recently Relevant to Health Maintenance Results * (ABNORMAL) HEPATITIS C AB W REFLEX TO HCV RNA BY PCR (07/01/2020 9:30 EDT) Hep C Antibody Reactive(A ) Negative 07/02/2020 11:00 EDT [facility] Comment: Supplemental testing for HCV RNA is ordered to rule out active HCV infection. Blood VENOUS BLOOD / Unknown 07/01/2020 9:30 EDT 07/01/2020 21:55 EDT us Provider Outr Resulting Lab CHEMISTRY & BLOOD GA S ORDERABLES Final Result [facility] [address] [place] [address] from Last 3 Months or Most Recently Relevant to Health Maintenance Care Teams Manual Plate Filler Relationship Specialty Start Date End Date Unknown, Provider, PCP - General 01/09/15
--- OUTSIDE RECORDS SUMMARY | 2024-03-30 20:11 | XMS_ITS | Encounter Summary ---
Author Organization [facility] Address [address] [place] [address] Care Team Providers Care Soft Drink Powder Mixer Name Role Phone Unknown, Provider Primary Care Provider Unava ilable Encounter Details Date Type Department Care Team (Late st Contact Info) Description 07/01/2020 Lab Requisition [facility] Pathology & Laboratory Medicine - [address] [address] Outr Resulting Lab, Provider Social History Tobacco Use Types Packs/Day Years Used Date Smoking Tobacco: Never Assessed Sex and Gender Information Value Date Recorded Sex Assigned at Not on file Legal Sex Male 18:43 EST Gender Identity Not on file Sexual Orientation Not on file documented as of this encounter Plan of Treatment Not on file documented as of this encounter Procedures Procedure Name Priority Date/Time Associated Diagnosis Comments HIV 1/2 ANTIGEN AND ANTIBODY, 4TH GENERATION Routine 07/01/2020 9:30 EDT documented in this encounter Results * HIV 1/2 ANTIGEN AND ANTIBODY, 4TH GENERATION (07/01/2020 9:30 EDT) HIV 1 and 2 Antibody/p24 Antigen, 4th Generation Negative Negative 07/02/2020 10:47 EDT [facility] Comment: If acute HIV-1 infection is suspected in a high risk ??patient, submit plasma specimen for HIV-1 RNA quantitation test. Fourth Generation assay performed on the Siemens [employer]. Blood VENOUS BLOOD / Unknown 07/01/2020 9:30 EDT 07/01/2020 21:54 EDT us Provider Outr Resulting Lab IMMUNOLOGY AND SEROL OGY ORDERABLES Final Result [facility] [address] [place] [address] documented in this encounter Visit Diagnoses Not on filedocumented in this encounter Care Teams Soft Drink Powder Mixer Relationship Specialty Start Date End Date Unknown, Provider, PCP - General 01/09/15 documented as of this encounter
--- OUTSIDE RECORDS SUMMARY | 2024-03-30 20:11 | XMS_ITS | Referral Summary ---
Author Organization [facility] Address [address] [place] [address] Care Team Providers Care Housing Project Manager Name Role Phone Unknown, Provider MD Primary Care Provider Unava ilable Social History Tobacco Use Types Packs/Day Years Used Date Smoking Tobacco: Never Assessed Sex and Gender Information Value Date Recorded Sex Assigned at Not on file Legal Sex Male 18:43 EST Gender Identity Not on file Sexual Orientation Not on file Plan of Treatment Not on file Procedures Procedure Name Priority Date/Time Associated Diagnosis Comments HEPATITIS C AB W REFLEX TO HCV RNA BY PCR Routine 07/01/2020 9:30 EDT from Last 3 Months or Most Recently Relevant to Health Maintenance Results * (ABNORMAL) HEPATITIS C AB W REFLEX TO HCV RNA BY PCR (07/01/2020 9:30 EDT) Hep C Antibody Reactive(A ) Negative 07/02/2020 11:00 EDT [facility] Comment: Supplemental testing for HCV RNA is ordered to rule out active HCV infection. Blood VENOUS BLOOD / Unknown 07/01/2020 9:30 EDT 07/01/2020 21:55 EDT us Provider Outr Resulting Lab CHEMISTRY & BLOOD GA S ORDERABLES Final Result [facility] [address] [place] [address] from Last 3 Months or Most Recently Relevant to Health Maintenance Care Teams Housing Project Manager Relationship Specialty Start Date End Date Unknown, ProviderMD PCP - General 01/09/15
--- OUTSIDE RECORDS SUMMARY | 2024-03-30 20:11 | XMS_ITS | Encounter Summary ---
Author Organization [facility] Address [address] [place] [address] Care Team Providers Care Liquefaction And Regasification Helper Name Role Phone Unavailable Primary Care Provider Unavailabl e Encounter Details Date Type Department Care Team (Latest Contact Info) Description 11/22/2007 19:43 EDT Hospital Encounter [facility] - Other [address] [place] [address] Adrián Mclean MD [address] [place] [address] Discharge Disposition: Home or Self Care Social History Tobacco Use Types Packs/Day Years Used Date Smoking Tobacco: Never Assessed Sex and Gender Information Value Date Recorded Sex Assigned at Not on file Legal Sex Male 18:43 EST Gender Identity Not on file Sexual Orientation Not on file documented as of this encounter Discharge Disposition Disposition Code Departure Means Destination Home or Self Care documented in this encounter Plan of Treatment Not on file documented as of this encounter Procedures Procedure Name Priority Date/Time Associated Diagnosis Comments HEPATITIS C AB W REFLEX TO HCV RNA BY PCR Routine 11/22/2007 9:00 EDT HEPATITIS B SURFACE ANTIBODY Routine 11/22/2007 9:00 EDT HEPATITIS B SURFACE ANTIGEN Routine 11/22/2007 9:00 EDT COMPLETE BLOOD COUNT AND DIFFERENTIAL Routine 11/22/2007 9:00 EDT HIV 1/2 ANTIGEN AND ANTIBODY, 4TH GENERATION Routine 11/22/2007 9:00 EDT COMPREHENSIVE METABOLIC PANEL (CMP) Routine 11/22/2007 9:00 EDT documented in this encounter Results * (ABNORMAL) HEMAGRAM AND DIFFERENTIAL (11/22/2007 9:00 EDT) WBC 6.62 4.0 - 10.4 K/cmm [facility] RBC 4.68 4.36 - 5.78 M/cmm [facility] Hemoglobin 13.7(L) 13.8 - 17.3 gm/dl [facility] HCT 40.2 39.5 - 50.2 % [facility] MCV 86 81 - 95 fl [facility] MCH 29.4 27.6 - 33.0 pg [facility] MCHC 34.2 32.8 - 36.4 gm/dl [facility] PLT 203 141 - 320 K/cmm [facility] RDW-CV 12.6 11.8 - 14.1 % [facility] Neutrophils 48.9 45.5 - 79.7 % [facility] Lymphocytes 27.5 15.0 - 46.8 % [facility] Monocytes 14.9(H) 1.8 - 12.0 % [facility] Eosinophils 8.1(H) 0.6 - 6.9 % [facility] Basophils 0.6 0.2 - 1.4 % [facility] ABS Neutrophils 3.24 2.20 - 8.85 K/cmm [facility] ABS Lymphs 1.82 1.09 - 3.30 K/cmm [facility] ABS Monocytes 0.99(H) 0.1 - 0.8 K/cmm [facility] ABS Eosinophils 0.54 0.03 - 0.61 K/cmm [facility] ABS Basophils 0.04 0.01 - 0.11 K/cmm [facility] Type of Diff: Automated [facility] 11/22/2007 9:00 EDT 11/22/2007 15:43 EDT us Adrián Prado MD PACKAGES & DNA PROBE ORDERAB LES Final Result [facility] [address] [place] [address] * (ABNORMAL) COMPREHENSIVE METABOLIC PANEL (11/22/2007 9:00 EDT) Potassium 4.1 3.5 - 5.0 mEq/L [facility] Sodium 142 136 - 145 mEq/L [facility] Chloride 99 96 - 110 mEq/L [facility] CO2 30 24 - 32 mEq/L [facility] Alkaline Phosphatase 56 38 - 126 U/L [facility] Bilirubin, Total 0.7 0.2 - 1.3 mg/dl [facility] AST 48(H) 15 - 46 U/L [facility] ALT 53 21 - 72 U/L [facility] Albumin 4.3 3.4 - 4.9 g/dl [facility] Total Protein 7.0 6.5 - 8.3 g/dl [facility] Creatinine 0.73 0.7 - 1.5 mg/dl [facility] GFR, Calculated >60 ml/min/1.7 3m2 [facility] BUN 10 10 - 26 mg/dl [facility] Calcium 9.4 8.5 - 10.5 mg/dl [facility] Calculated Calcium 9.5 8.5 - 10.5 mg/dl [facility] Glucose, Serum 83 70 - 100 mg/dl [facility] Fasting? No [facility] 11/22/2007 9:00 EDT 11/22/2007 15:43 EDT Adrián Prado MD CHEMISTRY & BLOOD GAS ORDERA BLES Final Result [facility] [address] [place] [address] * HIV ANTIBODY (11/22/2007 9:00 EDT) HIV 1/2 Antibody Neg [place] ECI methodology in use 09/12/2007. NEG [facility] 11/22/2007 9:00 EDT 11/22/2007 15:43 EDT Adrián Prado MD IMMUNOLOGY AND SEROLOGY ORDE RABLES Final Result [facility] [address] [place] [address] * HEPATITIS C ANTIBODY (11/22/2007 9:00 EDT) Hepatitis C Ab Neg [facility] 11/22/2007 9:00 EDT 11/22/2007 15:43 EDT Adrián Prado MD CHEMISTRY & BLOOD GAS ORDERA BLES Final Result [facility] [address] [place] [address] * HEPATITS B SURFACE ANTIGEN (11/22/2007 9:00 EDT) Hepatitis B Surface Ag Neg [facility] 11/22/2007 9:00 EDT 11/22/2007 15:43 EDT Adrián Prado MD CHEMISTRY & BLOOD GAS ORDERA BLES Final Result Performing Organization Address [facility]/ZIP Co de Phone Number [facility] [address] [place] [address] * HEPATITIS B SURFACE ANTIBODY (11/22/2007 9:00 EDT) Hepatitis B Surface Ab Pos [facility] 11/22/2007 9:00 EDT 11/22/2007 15:43 EDT Adrián Prado MD CHEMISTRY & BLOOD GAS ORDERA BLES Final Result [facility] [address] [place] [address] documented in this encounter Visit Diagnoses Not on filedocumented in this encounter
--- OUTSIDE RECORDS SUMMARY | 2024-03-30 20:11 | XMS_ITS | Encounter Summary ---
Author Organization [facility] Address [address] [place] [address] Care Team Providers Care Gravity Prospector Name Role Phone Unknown, Provider Primary Care Provider Unava ilable Encounter Details Date Type Department Care Team (Late st Contact Info) Description 05/09/2019 Lab Requisition [facility] Pathology & [place] [address] Unknown, Provider, Social History Tobacco Use Types Packs/Day Years [...] REFLEX TO HCV RNA BY PCR Routine 05/09/2019 10:15 EDT HEPATITIS B SURFACE ANTIGEN Routine 05/09/2019 10:15 EDT documented in this encounter Results * HEPATITIS B SURFACE ANTIGEN (05/09/2019 10:15 EDT) Hep B Surface Ag Negative Negative 05/10/2019 11:11 EDT [facility] Blood VENOUS BLOOD / Unknown 05/09/2019 10:15 EDT 05/09/2019 15:24 EDT us Provider Unknown CHEMISTRY & BLOOD GAS ORDERA BLES Final Result [facility] [address] [place] [address] * HEPATITIS C AB W REFLEX TO HCV RNA BY PCR (05/09/2019 10:15 EDT) Hep C Antibody Negative Negative 05/10/2019 11:46 EDT [facility] Blood VENOUS BLOOD / Unknown 05/09/2019 10:15 EDT 05/09/2019 15:24 EDT us Provider Unknown CHEMISTRY & BLOOD GAS ORDERA BLES Final Result [facility] [address] [place] [address] documented in this encounter Visit Diagnoses Not on filedocumented in this encounter Care Teams Gravity Prospector Relationship Specialty Start Date End Date Unknown, Provider, PCP - General 01/09/15 documented as of this encounter
--- OUTSIDE RECORDS SUMMARY | 2024-03-30 20:11 | XMS_ITS | Encounter Summary ---
Author Organization [facility] Address [address] [place] [address] Care Team Providers Care Milk Route Deliverer Name Role Phone Unknown, Provider Primary Care Provider Unava ilable Encounter Details Date Type Department Care Team (Late st Contact Info) Description 07/01/2020 Lab Requisition [facility] Pathology & Laboratory Medicine - [facility] [address] [place] [address] Outr Resulting Lab, Provider Social History Tobacco [...] Procedure Name Priority Date/Time Associated Diagnosis Comments HCV RNA DETECT QUANT Today 07/01/2020 9:30 EDT HEPATITIS C AB W REFLEX TO HCV RNA BY PCR Routine 07/01/2020 9:30 EDT HEPATITIS B SURFACE ANTIGEN Routine 07/01/2020 9:30 EDT documented in this encounter Results * (ABNORMAL) HCV RNA DETECT QUANT (07/01/2020 9:30 EDT) HCV RNA Qualitative Detected( A) Undetected 07/04/2020 15:03 EDT [facility] HCV RNA Quantitative 240,151(H ) Undetected IU/mL 07/04/2020 15:03 EDT [facility] Blood VENOUS BLOOD / Unknown 07/01/2020 9:30 EDT 07/01/2020 21:55 EDT Narrative [facility] - 07/04/2020 15:03 EDT The quantification range of this assay is 15 IU/mL to 100,000,000 IU/mL. ??Testing was performed on the DANIELLE Ampliprep/DANIELLE TaqMan HCV v2.0 ([employer] us Provider Outr Resulting Lab CHEMISTRY & BLOOD GA S ORDERABLES Final Result Performing Organization Address [facility]/ZIP Co de Phone Number [facility] [address] [place] [address] * HEPATITIS B SURFACE ANTIGEN (07/01/2020 9:30 EDT) Hep B Surface Ag Negative Negative 07/02/2020 10:15 EDT [facility] Blood VENOUS BLOOD / Unknown 07/01/2020 9:30 EDT 07/01/2020 21:55 EDT us Provider Outr Resulting Lab CHEMISTRY & BLOOD GA S ORDERABLES Final Result Performing Organization Address [facility] Co de Phone Number [facility] [address] [place] [address] * (ABNORMAL) HEPATITIS C AB W REFLEX TO HCV RNA BY PCR (07/01/2020 9:30 EDT) Hep C Antibody Reactive(A ) Negative 07/02/2020 11:00 EDT [facility] Comment: Supplemental testing for HCV RNA is ordered to rule out active HCV infection. Blood VENOUS BLOOD / Unknown 07/01/2020 9:30 EDT 07/01/2020 21:55 EDT us Provider Outr Resulting Lab CHEMISTRY & BLOOD GA S ORDERABLES Final Result Performing Organization Address [facility]/ZIP Co de Phone Number [facility] [address] [place] [address] documented in this encounter Visit Diagnoses Not on filedocumented in this encounter Care Teams Milk Route Deliverer Relationship Specialty Start Date End Date Unknown, Provider, PCP - General 01/09/15 documented as of this encounter
--- OUTSIDE RECORDS SUMMARY | 2024-03-30 20:11 | XMS_ITS | Encounter Summary ---
Author Organization [facility] Address [address] [place] [address] Care Team Providers Care Insulation Estimator Name Role Phone Unknown, Provider Primary Care Provider Unava ilable Encounter Details Date Type Department Care Team (Late st Contact Info) Description 05/09/2019 Lab Requisition [facility] Pathology & [place] [address] Unknown, Provider, Social History Tobacco Use Types [...] 1/2 ANTIGEN AND ANTIBODY, 4TH GENERATION Routine 05/09/2019 10:15 EDT documented in this encounter Results * HIV 1/2 ANTIGEN AND ANTIBODY, 4TH GENERATION (05/09/2019 10:15 EDT) HIV 1 and 2 Antibody/p24 Antigen, 4th Generation Negative Negative 05/10/2019 11:22 EDT [facility] Comment: If acute HIV-1 infection is suspected in a high risk ??patient, submit plasma specimen for HIV-1 RNA quantitation test. Fourth Generation assay performed on the Siemens [employer]. Blood VENOUS BLOOD / Unknown 05/09/2019 10:15 EDT 05/09/2019 15:23 EDT us Provider Unknown IMMUNOLOGY AND SEROLOGY ELIOT LUKE Final Result [facility] [address] [place] [address] documented in this encounter Visit Diagnoses Not on filedocumented in this encounter Care Teams Insulation Estimator Relationship Specialty Start Date End Date Unknown, Provider, PCP - General 01/09/15 documented as of this encounter
== END 2024-03-30 20:16 | disposition home or self-care (01) ==
LOC: ER 20:07
PROVIDERS: Emergency Provider Emergency Medicine
DX: T78.09XA Anaphylactic reaction due to other food products, initial encounter (principal)
CPT/HCPCS: 96374; 99284

== ENCOUNTER 2024-07-17 19:38 | Emergency (ER) | payer MEDICAID, SELFPAY ==
[2024-07-17 19:42] VITALS: BP 178/98; PULSE 83; RESP 18; TEMP 36.9; O2SAT 99
--- NOTE | 2024-07-17 19:45 | DI.CT_ITS ---
Exam(s) CT RENAL COLIC WO EXAM: CT RENAL COLIC WO CLINICAL HISTORY: flank pain. TECHNIQUE: Imaging Protocol: Axial computed tomography images with coronal and sagittal reformatted images were created and reviewed. COMPARISON: CT CT RENAL COLIC WO from 06/30/2021 FINDINGS: Lung Bases: No acute findings. Stable 3 millimeter nodule at the right lower. Liver: Normal density. No measurable mass. Gallbladder and biliary tract: No radiodense calculus. No biliary ductal dilation. Pancreas: No abnormal calcifications or inflammatory process. Spleen: Normal size. Kidneys: Normal size, contour and axis.No radiodense stones or obstructive uropathy. No suspicious ma sses seen. Adrenal glands: No mass is seen. Lymph nodes: Within normal limits. Vasculature: Abdominal aorta non-dilated. Bladder:No stones. No gross wall thickening. No evidence of mass. Bowel: No obstruction. No bowel wall thickening. Peritoneal cavity: No ascites.No free air. No focal collection. No mesenteric inflammatory response. Reproductive organs: Within normal limits. Bones: Degenerative changes in the lower thoracic spine. Small small nodes. Soft Tissues: Within normal limits. IMPRESSION: Unremarkable CT scan of the abdomen and pelvis. No evidence of urinary tract calculi or hydronephros is. RADIATION DOSE DELIVERED: 582.3mGy.cm Total DLP 582.3mGy.cm Total DLP DATA REPOSITORY: All CT scans at this facility are submitted to the National Radiology Data Registry (NRDR) Dose Index Registry (DIR) with the [employer] (ACR). RADIATION OPTIMIZATION: All CT scans at this facility use at least one of these dose optimization te chniques: automated exposure control; mA and/or kV adjustment per patient size (includes targeted exa ms where dose is matched to clinical indication); or iterative reconstruction.
[2024-07-17 19:46] VITALS: BP 178/98; PULSE 83; RESP 18; TEMP 36.9; O2SAT 99
[2024-07-17] MEDS: Ketorolac 30 MG/ML VIAL IVP (19:59)
[2024-07-17] MEDS: Ondansetron 4 MG/2 ML VIAL IVP (19:59)
[2024-07-17 20:13] LABS: Abs Immature Grans 0.01 10^3/uL (0.0-0.06); Absolute Basophil Count 0.05 10^3/uL (0.0-0.2); Absolute Eosinophil Count 0.14 10^3/uL (0.0-0.7); Absolute Lymphocyte Count 1.74 10^3/uL (1.2-3.4); Absolute Monocyte Count 0.56 10^3/uL (0.1-0.8); Absolute Neutrophil Count 4.81 10^3/uL (1.2-6.7); Basophils % 0.7 %; Eosinophils % 1.9 %; HGB 15.8 g/dL (13.5-17.5); Immature Grans % 0.1 %; Lymphocytes % 23.8 %; MCH 29.6 pg (27.0-33.0); MCHC 34.3 % (32.0-36.0); MCV 86 fL (80-95); MPV 10.5 fL (8.0-11.0); Monocytes % 7.7 %; Neutrophils % 65.8 %; Platelet Count 237 10^3/uL (130-400); RBC 5.34 10^6/uL (4.36-5.78); RDW 11.9 % (11.8-14.1); RDW-SD 37.5 fL; WBC 7.31 10^3/uL (4.4-10.8)
[2024-07-17 20:33] LABS: Anion Gap 10.9 mmol/L (3-11); BUN 7 mg/dL (7-18); CO2 28.1 mmol/L (21.0-32.0); Calcium 9.1 mg/dL (8.5-10.1); Chloride 102 mmol/L (98-107); Estimated GFR 100.03 (mL/min/1.73m2); Glucose 140 mg/dL (74-106); Potassium 3.3 mmol/L (3.5-5.1); Sodium 141 mmol/L (136-145)
[2024-07-17] MEDS: Normal Saline 1,000 ML 1000 ML IV (20:54)
[2024-07-17] MEDS: Normal Saline Flush 10 ML SYR IVP (20:55)
[2024-07-17 21:22] LABS: Bilirubin Negative (Negative); Blood Negative (Negative); Clarity Clear (Clear); Glucose Negative (Negative); Ketones Negative (Negative); Leukocyte Esterase Negative (Negative); Nitrite Negative (Negative); Specific Gravity 1.025 (1.005-1.025)
--- NOTE | 2024-07-17 21:30 | DI.VRAD_ITS ---
PROCEDURE INFORMATION: Exam: CT Abdomen And Pelvis Without Contrast Exam date and time: 07/17/2024 8:11 PM Age: 34 years old Clinical indication: Other: Flank pain TECHNIQUE: Imaging protocol: Computed tomography of the abdomen and pelvis without contrast. Radiation optimization: All CT scans at this facility use at least one of these dose optimization techniques: automated exposure control; mA and/or kV adjustment per patient size (includes targeted exams where dose is matched to clinical indication); or iterative reconstruction. COMPARISON: CT RENAL COLIC WO 06/30/2021 6:23 PM FINDINGS: Lungs: Stable 3 mm right lower lobe nodule. Liver: The liver is unremarkable. Gallbladder and biliary ducts: No gallstones. Nondistended. No wall thickening. Pancreas: The pancreas is unremarkable. Spleen: No splenomegaly. No lesions. Adrenal glands: The adrenal glands are unremarkable. Kidneys and ureters: The kidneys are normal. Stomach and bowel: No evidence of bowel obstruction. No pericolonic inflammatory stranding. Appendix: Normal appendix. Intraperitoneal space: Unremarkable. No free air. No significant fluid collection. Vasculature: Patent vessels without evidence of aneurysm, dissection, occlusion or critical stenosis. Lymph nodes: No mesentery adenopathy. No edema. Urinary bladder: No focal wall thickening of the urinary bladder. Reproductive: Unremarkable as visualized. Bones/joints: No acute osseous abnormality. Soft tissues: Bilateral fat containing inguinal hernias. Soft tissues are unremarkable as visualized. IMPRESSION: No acute findings. Dictated and Authenticated by: Sweta Landa MD. Orderin Mara Crockett MD
[2024-07-17 22:02] VITALS: BP 155/109; PULSE 55; RESP 16; TEMP 36.9; O2SAT 98
--- NOTE | 2024-07-17 22:11 | ED.GENADUL_ITS ---
Discharge Plan Disposition Patient Disposition: Home Condition: Stable Discharge Details Clinical Impression: Flank pain, Hematuria, Hypertension Primary Care Provider: Unknown,Unknown ED Provider: Frank Terry Home Meds and New Rx's Prescriptions: New lisinopril 10 mg tablet 10 mg PO DAILY Qty: 30 0RF tamsulosin [Flomax] 0.4 mg capsule 0.4 mg PO DAILY Qty: 30 0RF Discharge Instructions Additional Instructions: CT does not reveal a renal stone that you may have passed it before arrival. Continue Motrin and Tylenol as needed for pain. Make sure to drink lots of water. Your blood pressure was elevated today, and you said that you have not taken your blood pressure medication for some time. Refill of this medication has been sent to the pharmacy for you to restart. Given your prior history of stones, a prescription for the Flomax has also been sent to the pharmacy for you to take. Return to the emergency department if you have any other issues or concerns. Discharge Data Discharge Date/Time-TO BE ENTERED AT DEPARTURE: 07/17/24 22:16 HPI General Date/Time Provider Initiated Documentation: 07/17/24 19:49 . Limitations to Documentation: no limitations . Information obtained by: patient . HPI Narrative: 34-year-old gentleman with past medical history of alcohol abuse, hypertension presents for evaluation of flank pain. He reports that he was going to the bathroom when he developed some flank pain. He reports pain was severe, in his left back with radiation to the front. Is associated with the discoloration in his urine. He thought he was going to pass out and afterwards felt very flushed and lightheaded. He does report history of renal stones. Related Data Home Medications ?Medication ?Instructions ?Recorded ?Confirmed lisinopril 10 mg tablet 10 mg PO DAILY #30 tabs 07/17/24 tamsulosin 0.4 mg capsule (Flomax) 0.4 mg PO DAILY #30 caps 07/17/24 Previous Rx's ?Medication ?Instructions ?Recorded lisinopril 10 mg tablet 10 mg PO DAILY #30 tabs 07/17/24 tamsulosin 0.4 mg capsule (Flomax) 0.4 mg PO DAILY #30 caps 07/17/24 Allergies Allergy/AdvReac Type Severity Reaction Status Date / Time mushroom Allergy Severe Anaphylaxis Verified 07/17/24 19:46 levofloxacin (From Levaquin) Allergy Agitation Verified 07/17/24 19:46 bee Allergy Severe Anaphylaxis Uncoded 07/17/24 19:46 vanilla Allergy Severe Anaphylaxsi Uncoded 07/17/24 19:46 s General Stated Complaint: FlankPain ALESSANDRA: 3 Exam Narrative Exam Narrative: Review of Systems: All systems reviewed & are unremarkable except as noted in HPI and below Well-developed, no acute distress NCAT RRR Unlabored respiratory effort Nondistended abdomen , soft nontender, left CVA tenderness Course Vital Signs Vital signs: Vital Signs Temperature 36.9 C 07/17/24 19:42 Pulse 83 07/17/24 19:42 Respiratory Rate 18 07/17/24 19:42 Blood Pressure 178/98 H 07/17/24 19:42 Pulse Oximetry 99 07/17/24 19:42 Temperature 36.9 C 07/17/24 22:02 Temperature Source Oral 07/17/24 22:02 Pulse 55 L 07/17/24 22:02 Respiratory Rate 16 07/17/24 22:02 Blood Pressure 155/109 H 07/17/24 22:02 Blood Pressure Mean 124 07/17/24 22:02 Pulse Oximetry 98 07/17/24 22:02 Oxygen Delivery Method Room Air 07/17/24 22:02 Oxygen Flow Rate 0 07/17/24 22:02 Pain Level 4 07/17/24 22:02 Lab/Test Results Lab/Test Results: Laboratory Tests Range/Units 07/17/24 07/17/24 20:08 20:50 WBC (4.4-10.8) 10^3/uL 7.31 RBC (4.36-5.78) 10^6/uL 5.34 Hgb (13.5-17.5) g/dL 15.8 Hct (40.0-50.0) % 46.0 MCV (80-95) fL 86 MCH (27.0-33.0) pg 29.6 MCHC (32.0-36.0) % 34.3 RDW (11.8-14.1) % 11.9 Plt Count (130-400) 10^3/uL 237 MPV (8.0-11.0) fL 10.5 Immature Gran % % 0.1 Neutrophils % % 65.8 Lymphocytes % % 23.8 Monocytes % % 7.7 Eosinophils % % 1.9 Basophils % % 0.7 Nucleated RBC % (0.0-0.3) % 0.0 Absolute Neutrophils (1.2-6.7) 10^3/uL 4.81 Absolute Lymphocytes (1.2-3.4) 10^3/uL 1.74 Absolute Monocytes (0.1-0.8) 10^3/uL 0.56 Absolute Eosinophils (0.0-0.7) 10^3/uL 0.14 Absolute Basophils (0.0-0.2) 10^3/uL 0.05 Sodium (136-145) mmol/L 141 Potassium (3.5-5.1) mmol/L 3.3 L Chloride (98-107) mmol/L 102 Carbon Dioxide (21.0-32.0) mmol/L 28.1 Anion Gap (3-11) mmol/L 10.9 BUN (7-18) mg/dL 7 Creatinine (0.70-1.30) mg/dL 1.0 Est GFR (CKD-EPI 2020) (mL/min/1.73m2) 100.03 Glucose (74-106) mg/dL 140 H Calcium (8.5-10.1) mg/dL 9.1 Urine Color (Yellow) Yellow Urine Clarity (Clear) Clear Urine pH (5-8) 6.0 Ur Specific Manning (1.005-1.025) 1.025 Urine Protein (Neg-Trace) mg/dL Negative Urine Ketones (Negative) mg/dL Negative Urine Blood (Negative) Negative Urine Nitrite (Negative) Negative Urine Bilirubin (Negative) Negative Urine Urobilinogen (Up to 0.2) mg/dL 1.0 H Ur Leukocyte Esterase (Negative) Negative Urine Glucose (Negative) mg/dL Negative Medical Decision Making Urgent evaluation of flank pain. Symptoms occurred with urination. And the urinary color change seems consistent with a kidney stone otherwise patient is hemodynamically stable. Slightly hypertensive, but has not taken his blood pressure medication in several months. The patient lab work was obtained. No leukocytosis or anemia. Mild hypokalemia, recommend dietary changes. Mild hyperglycemia without evidence of DKA. Urinalysis with without evidence of deon blood or infection. He was given medications including IV fluids and Toradol. He reports improvement in his symptoms, still some aching in his back, his CT scan did not demonstrate any stone , perhaps he passed it which caused his acute pain prior to arrival. Given his overall achiness and fatigue, flu test was also obtained and this was negative. Recommend continued increased fluid intake and follow-up with PCP as needed. Quality:SDOH Health Related Social Needs: No Data to Display PFSH All Active Problems (Updated 07/17/24 @ 22:08 by Frank Terry MD) Hypertension (Chronic) Hematuria (Acute) Flank pain (Acute) ETOH abuse (Chronic) No-show for appointment (Acute) Medical History HTN (hypertension) Surgical History No significant past surgical history Social History (System 10/14/22 @ 10:52 by Rosalinda Conroy) Smoking/Tobacco Use Status: Current every day Tobacco Type: cigarettes Smoking risk assessment performed?: Yes Alcohol Intake: current Alcohol Intake frequency: a few times a month Alcohol type: beer Drug use: Socially Substance use type: marijuana and opiates Details: former opiate user. Housing: apartment Do you feel safe at home: Yes Do you feel safe in your relationship?: Yes
== END 2024-07-17 22:16 | disposition home or self-care (01) ==
PROVIDERS: Emergency Provider Emergency Medicine
DX: R31.9 Hematuria, unspecified; I10 Essential (primary) hypertension; R10.9 Unspecified abdominal pain
CPT/HCPCS: 99284 ×2; 96374; 96375; 36415; 80048; 96361; 74176; 81003; 85025; J1885; J2405

== ENCOUNTER 2024-12-04 12:30 | Emergency (ER) | payer SELFPAY ==
--- NOTE | 2024-12-04 12:30 | RT.EKG_ITS ---
APPROVED REPORT Exam: Resting ECG Reason for Exam: sob Patient Location: E HR:89 bpm ECG Measurements Heart Rate 89 AXIS WA 137 P 0 QRSd 102 QRS 90 QT 348 T 21 QTc 423 Conclusion Sinus rhythm, rate 89 No interval abnormalities No STEMI, borderline diffuse ST elevations unchanged from priors and likely MARIANNE T wave inversion lead III, unchanged
[2024-12-04 12:34] VITALS: BP 152/99; PULSE 90; RESP 18; TEMP 36.8; O2SAT 97
--- NOTE | 2024-12-04 13:00 | DI.RAD_ITS ---
Exam(s) XR CHEST 2V PA LATERAL EXAM: XR CHEST 2V PA LATERAL CLINICAL HISTORY: SOB, cough. TECHNIQUE: 2D digital imaging was performed. COMPARISON: CR XR PORTABLE CHEST AP from 10/14/2022 FINDINGS: 2 views: Heart size is normal. The mediastinum is not widened. Lungs are clear. No infiltrates nor pleural effusions. IMPRESSION: No acute pulmonary findings. DATA REPOSITORY: RADIATION DOSE DELIVERED:
[2024-12-04 13:08] VITALS: BP 152/99; PULSE 90; RESP 18; TEMP 36.8; O2SAT 97
[2024-12-04] MEDS: Albuterol/Ipratropium 3 ML UPD VIAL UPD (13:13)
--- NOTE | 2024-12-04 13:34 | ED.GENADUL_ITS ---
Discharge Plan Disposition Patient Disposition: Home Condition: Stable Discharge Details Clinical Impression: Upper respiratory infection, viral Primary Care Provider: Unknown,Unknown ED Provider: Kristie Desouza Home Meds and New Rx's Prescriptions: New prednisone 20 mg tablet 40 mg PO DAILY 5 Days Qty: 10 0RF No Action lisinopril 10 mg tablet 10 mg PO DAILY Qty: 30 0RF tamsulosin [Flomax] 0.4 mg capsule 0.4 mg PO DAILY Qty: 30 0RF Discharge Instructions Instructions: Upper Respiratory Infection ED Additional Instructions: You were seen in the emergency department today for evaluation of shortness of breath and cough. In our department you had a full physical examination performed, had an EKG that did not show any abnormalities to your heart, and had a negative COVID and influenza test. You had an x-ray that did not show any sign of pneumonia, and I am most concerned for viral upper respiratory infection. You did have some wheezing for which I provided you with an albuterol inhaler and a short course of steroids to reduce inflammation. Please use therapeutic dosing of Tylenol (acetaminophen) & Advil (ibuprofen) in an alternating fashion as follows: Take 1000mg of Tylenol every 6 hours without missing doses- that is 4 times per day. Custodial in between the Tylenol doses, take 600mg of Advil also on a 6 hour schedule, that is also 4 times per day. With this strategy, you will be taking something for fever/pain as often as every 3 hours. The daily maximum dosing of Tylenol is 4000mg, and the daily maximum dosing of Advil is 2400mg. Please note that some common cold medications & prescription pain medications may contain acetaminophen and you need to read OTC drug labels and factor that in to maximum daily doses. A referral was placed for you to establish with a primary care provider in the area. Thank you for allowing us to be part of your care. Stand Alone Forms: Work Release HPI General Mode of arrival: ambulatory . Date/Time Provider Initiated Documentation: 12/04/24 12:38 . Limitations to Documentation: no limitations . Information obtained by: patient and old records reviewed . HPI Narrative: This is a 34-year-old male patient presenting for evaluation of shortness of breath and cough. The patient reports that everybody in his home has been sick recently with a viral illness, he has had cough productive of white sputum, and a burning sensation in his lungs when he has a coughing fit. He reports that he has had shortness of breath especially with exertion. States that when he has a coughing fit he often sees spots and feels his heart beating very quickly. He has not had measured fever, but does have runny/stuffy nose and sinus congestion. He states that he is not experiencing bodyaches, chest pain, abdominal pain, nausea or vomiting. He states that he has been able to maintain his hydration adequately. Is managing his symptoms with Mucinex. Related Data Home Medications ?Medication ?Instructions ?Recorded ?Confirmed lisinopril 10 mg tablet 10 mg PO DAILY #30 tabs 06/2912/04/24 tamsulosin 0.4 mg capsule (Flomax) 0.4 mg PO DAILY #30 caps 07/17/24 12/04/24 prednisone 20 mg tablet 40 mg (2 x 20 mg) PO DAILY 5 days 12/04/24 #10 tabs Previous Rx's ?Medication ?Instructions ?Recorded lisinopril 10 mg tablet 10 mg PO DAILY #30 tabs 06/29 11/23 tamsulosin 0.4 mg capsule (Flomax) 0.4 mg PO DAILY #30 caps 07/17/24 prednisone 20 mg tablet 40 mg (2 x 20 mg) PO DAILY 5 days 12/04/24 #10 tabs Allergies Allergy/AdvReac Type Severity Reaction Status Date / Time mushroom Allergy Severe Anaphylaxis Verified 12/04/24 12:51 levofloxacin (From Levaquin) Allergy Agitation Verified 12/04/24 12:51 bee Allergy Severe Anaphylaxis Uncoded 12/04/24 12:51 vanilla Allergy Severe Anaphylaxsi Uncoded 12/04/24 12:51 s General Stated Complaint: SOB ALESSANDRA: 3 Exam Narrative Exam Narrative: Gen: Awake and alert, in no apparent distress HEENT: Non-icteric sclera, conjunctiva noninjected, PERRL Neck: Supple, full range of motion without meningismus Lungs: No apparent respiratory distress, normal respiratory effort. Lung sounds with expiratory wheezing throughout, no rhonchi, rales CV: Appears well perfused, heart with regular rate and rhythm, strong distal pulses Abdomen: Non-distended MSK: Moves 4 extremities without apparent limitation in ROM Skin: Visualized skin without rashes, cyanosis. Neuro: Normal Gait, no obvious focal deficits or facial asymmetry. Speaks in full, clear sentences. Psych: Appropriate for situation. Course Vital Signs Vital signs: Vital Signs Temperature 36.8 C 12/04/24 12:34 Pulse 90 12/04/24 12:34 Respiratory Rate 18 12/04/24 12:34 Blood Pressure 152/99 H 12/04/24 12:34 Pulse Oximetry 97 12/04/24 12:34 Temperature 36.8 C 12/04/24 13:08 Temperature Source Oral 12/04/24 13:08 Pulse 90 12/04/24 13:08 Respiratory Rate 18 12/04/24 13:08 Blood Pressure 152/99 H 12/04/24 13:08 Blood Pressure Position Sitting 12/04/24 13:08 Pulse Oximetry 97 12/04/24 13:08 Oxygen Delivery Method Room Air 12/04/24 13:08 Oxygen Flow Rate 0 12/04/24 12:34 Medical Decision Making This is a 34-year-old male patient presenting for evaluation of shortness of breath, cough, and nasal/sinus congestion. Differential includes but is not limited to viral URI, bronchitis, pneumonia, sinusitis, certainly considered reactive airway disease exacerbation given the patient is wheezing, though he has no documented history of asthma. No evidence of fluid overload or history of heart failure to suggest pulmonary edema or pleural effusion. The patient is maintaining oral intake and has no hemodynamic instability to suggest dehydration, metabolic or electrolyte derangement, kidney injury. I will provide the patient with a duo nebulizer treatment, and obtain a Fluvid and chest x-ray. I did discuss laboratory studies with the patient and at this time he is desiring to wait, which I feel is quite reasonable. We did obtain an EKG, which shows a sinus rhythm without evidence of acute ischemia, interval abnormality, or ectopy. He has evidence of benign early repolarization which has been present on previous EKGs. - Fluvid was negative, chest x-ray reviewed by myself and shows no focal consolidations concerning for pneumonia. On reevaluation the patient reports some improvement after the nebulizer, and I counseled him on my concern for a viral URI. I did provide him with an albuterol inhaler as well as a short course of steroids for his wheezing. I have provided a referral to establish with a primary care provider in our area as he has not had one in the past. At this time, the patient has had a full medical evaluation and is safe for discharge to home. They are hemodynamically stable, ambulatory, and tolerating PO. They are understanding of the follow-up plan and return precautions. They left our facility without incident. Kristie Desouza MD [facility] All Active Problems (Updated 12/04/24 @ 14:50 by Kristie Desouza MD) Upper respiratory infection, viral (Acute) ETOH abuse (Chronic) No-show for appointment (Acute) Medical History HTN (hypertension) Surgical History No significant past surgical history Social History (System 10/14/22 @ 10:52 by Rosalinda Conroy) Smoking/Tobacco Use Status: Current every day Tobacco Type: cigarettes Smoking risk assessment performed?: Yes Alcohol Intake: current Alcohol Intake frequency: a few times a month Alcohol type: beer Drug use: Socially Substance use type: marijuana and opiates Details: former opiate user. Housing: apartment Do you feel safe at home: Yes Do you feel safe in your relationship?: Yes PAWSS Have you Been Recently Intoxicated or Drunk Within the Last 30 days?: No Have you Ever Experienced Previous Episodes of Alcohol Withdrawal?: No Have you ever Experienced Withdrawal Seizures?: No Have you ever Experienced Delirium Tremens(DT)s?: No Have you ever undergone Alcohol Rehabilitation Treatment (i.e, inpt ot outpatient treatment programs)?: No Have you ever Experienced Blackouts?: No Have you ever Combined Alcohol with other Downers within the last 90 days?: No Have you ever Combined Alcohol with any other Substance of Abuse during the last 90 days?: No Positive Blood Alcohol level on Presentation? [PCS.BAL]: No Evidence of Increased Autonomic Activity (i.e. HR>120, tremor, sweating, agitation, nausea)?: No Result: 0
[2024-12-04 13:47] LABS: COVID-19 PCR Negative (Negative); RSV PCR Negative (Negative)
[2024-12-04] MEDS: Albuterol HFA 8 GM 60 PUFF INH IH (15:01)
[2024-12-04 15:02] VITALS: BP 132/68; PULSE 82; RESP 18; O2SAT 96
--- NOTE | 2024-12-05 08:32 | NUR.NOTE ---
Access chart to reconcile EKG orders with EKG's in [facility]. Duplicate EKG deleted. Nursing Note:
== END 2024-12-04 15:02 | disposition home or self-care (01) ==
PROVIDERS: Emergency Provider Emergency Medicine
DX: J06.9 Acute upper respiratory infection, unspecified (principal); R06.02 Shortness of breath; R05.9 Cough, unspecified
CPT/HCPCS: 99285; 99283; 87637; 93005; 71046; 93010; J7620